=== PATIENT | male | born 1965 | race American Indian/Alaskan Native ===

== ENCOUNTER 2016-09-11 19:21 | Emergency (ER) | payer SELFPAY ==
[2016-09-11] MEDS ORDERED: DUONEB *Not for PRN Use IH ONE ×3 (19:50→23:11)
[2016-09-11] MEDS ORDERED: DELTASONE PO ONE (23:11)
--- NOTE | 2016-09-11 23:12 | Emergency Department Report ---
ED Asthma HPI - General Chief Complaint: Adult Asthma Stated Complaint: ASTHMA Time Seen by Provider: 09/11/16 22:55 Source: patient Mode of arrival: Ambulatory Limitations: No Limitations - History of Present Illness Initial Comments: 51-year-old male past medical history asthma nonsmoker presents with complaint of asthma exacerbation since this afternoon. Patient states that he ran out of his albuterol inhaler and his nebulized fluid at home. Patient is awake alert and oriented 3 no audible wheezing or stridor on exam speaking in full sentences. Patient received one nebulizer treatment in triage. States he feels some continual wheeziness. Patient is accompanied by his son. Denies any chest pain. Patient unaware of his baseline peak flow status. No history of intubations states that he was last treated for asthma in the ED a month ago. Also complaining of 2 days of slightly productive cough with yellowish greenish sputum. Denies any recent travel. No pleuritic chest pain reported by patient. MD Complaint: "asthma attack", wheezing -: This afternoon Asthma History: childhood onset, history of prior ED visit Severity: mild Context: ran out of meds Associated Symptoms: productive cough - Related Data Home Medications Medication Instructions Recorded Confirmed Last Taken ALBUTEROL Inhaler [ProAir HFA 2 puff PO Q4-6H PRN 01/20/16 01/20/16 01/19/16 Inhaler] Previous Rx's Medication Instructions Recorded Last Taken Type ALBUTEROL Inhaler [ProAir HFA 1 puff IH Q4-6H #1 inha 01/20/16 Unknown Rx Inhaler] predniSONE [Deltasone] 50 mg PO QDAY #5 tablet 01/20/16 Unknown Rx ALBUTEROL Inhaler [ProAir HFA 1 puff IH Q4H PRN #1 inha 09/11/16 Unknown Rx Inhaler] Albuterol Sulfate [Albuterol 0.63% 0.63 mg IH Q4H PRN #1 box 09/11/16 Unknown Rx NEBS] Azithromycin [Zithromax Z-SHEREE] 250 mg PO QDAY #1 pack 09/11/16 Unknown Rx Prednisone [predniSONE 10 mg 10 mg PO .TAPER #1 tab.ds.pk 09/11/16 Unknown Rx (6-Day Pack, 21 Tabs)] Allergies Allergy/AdvReac Type Severity Reaction Status Date / Time No Known Allergies Allergy Unverified 11/14/12 08:57 ED Review of Systems ROS: Stated complaint: ASTHMA Other details as noted in HPI Constitutional: denies: chills, fever Eyes: denies: eye pain, eye discharge, vision change ENT: denies: ear pain, throat pain Respiratory: denies: cough, shortness of breath, wheezing Cardiovascular: denies: chest pain, palpitations Endocrine: no symptoms reported Gastrointestinal: denies: abdominal pain, nausea, diarrhea Genitourinary: denies: urgency, dysuria Musculoskeletal: denies: back pain, joint swelling, arthralgia Skin: denies: rash, lesions Neurological: denies: headache, weakness, paresthesias Psychiatric: denies: anxiety, depression Hematological/Lymphatic: denies: easy bleeding, easy bruising ED Past Medical Hx - Past Medical History Previous Medical History?: Yes Hx Hypertension: Yes (no meds) Hx Asthma: Yes - Surgical History Past Surgical History?: Yes Additional Surgical History: Neck surgery 1970 - Social History Smoking Status: Never Smoker Substance Use Type: None - Medications Home Medications: Home Medications Medication Instructions Recorded Confirmed Last Taken Type ALBUTEROL Inhaler [ProAir HFA 1 puff IH Q4-6H #1 inha 01/20/16 Unknown Rx Inhaler] ALBUTEROL Inhaler [ProAir HFA 2 puff PO Q4-6H PRN 01/20/16 01/20/16 01/19/16 History Inhaler] predniSONE [Deltasone] 50 mg PO QDAY #5 tablet 01/20/16 Unknown Rx ALBUTEROL Inhaler [ProAir HFA 1 puff IH Q4H PRN #1 inha 09/11/16 Unknown Rx Inhaler] Albuterol Sulfate [Albuterol 0.63% 0.63 mg IH Q4H PRN #1 box 09/11/16 Unknown Rx NEBS] Azithromycin [Zithromax Z-SHEREE] 250 mg PO QDAY #1 pack 09/11/16 Unknown Rx Prednisone [predniSONE 10 mg 10 mg PO .TAPER #1 tab.ds.pk 09/11/16 Unknown Rx (6-Day Pack, 21 Tabs)] ED Physical Exam - General Limitations: No Limitations General appearance: alert, in no apparent distress - Head Head exam: Present: atraumatic, normocephalic - Eye Eye exam: Present: normal appearance, PERRL, EOMI - ENT ENT exam: Present: mucous membranes moist - Neck Neck exam: Present: normal inspection - Respiratory Respiratory exam: Present: decreased breath sounds (poor airflow bilaterally on auscultation very fine wheezing in both lower lung delaney). Absent: respiratory distress - Cardiovascular Cardiovascular Exam: Present: regular rate, normal rhythm. Absent: systolic murmur, diastolic murmur, rubs, gallop - GI/Abdominal GI/Abdominal exam: Present: soft, normal bowel sounds - Rectal Rectal exam: Present: deferred - Extremities Exam Extremities exam: Present: normal inspection - Back Exam Back exam: Present: normal inspection - Neurological Exam Neurological exam: Present: alert, oriented X3 - Psychiatric Psychiatric exam: Present: normal affect, normal mood - Skin Skin exam: Present: warm, dry, intact, normal color. Absent: rash ED Course Vital Signs 09/11/16 09/11/16 09/11/16 19:40 19:55 20:16 Temperature 98.3 F Pulse Rate 69 Pulse Rate [ 69 72 Throughout] Respiratory 22 Rate Respiratory 16 16 Rate [ Throughout] Blood Pressure 156/101 Blood Pressure [Left] O2 Sat by Pulse 96 Oximetry 09/11/16 09/11/16 09/12/16 23:23 23:56 00:05 Temperature Pulse Rate 76 Pulse Rate [ 78 80 Throughout] Respiratory 20 Rate Respiratory 20 20 Rate [ Throughout] Blood Pressure Blood Pressure 164/92 [Left] O2 Sat by Pulse 97 Oximetry ED Medical Decision Making - Medical Decision Making A/P: Asthma exacerbation 1-prednisone Dosepak, refill on albuterol inhaler and albuterol nebulized fluid 2-follow up with primary care doctor 3-patient is ambulating, no signs of respiratory distress O2 sat above 97% on room air, speaking in full sentences, states he feels significantly better Critical care attestation.: If time is entered above; I have spent that time in minutes in the direct care of this critically ill patient, excluding procedure time. ED Disposition Clinical Impression: Asthma exacerbation Disposition: DC-01 TO HOME OR SELFCARE Is pt being admited?: No Does the pt Need Aspirin: No Condition: Stable Instructions: Asthma (ED) Prescriptions: ALBUTEROL Inhaler [ProAir HFA Inhaler] 1 puff IH Q4H PRN #1 inha PRN Reason: Wheezing Albuterol Sulfate [Albuterol 0.63% NEBS] 0.63 mg IH Q4H PRN #1 box PRN Reason: Wheezing Azithromycin [Zithromax Z-SHEREE] 250 mg PO QDAY #1 pack Prednisone [predniSONE 10 mg (6-Day Pack, 21 Tabs)] 10 mg PO .TAPER #1 tab.ds.pk Referrals: [facility] [Outside] - 3-5 Days [facility] [Outside] - 3-5 Days MARC LEAL MD [Staff Physician] - 3-5 Days Forms: Accompanied Note, Work/School Release Form(ED) Time of Disposition: 23:38
[2016-09-12 00:06] VITALS: BP 164/92
--- NOTE | 2016-09-12 09:18 | XRay Report ---
CHEST TWO VIEWS: 09/11/16 23:14 CLINICAL: Productive cough. COMPARISON: 11/14/12 FINDINGS: Normal heart and pulmonary vasculature.Aortic tortuosity. The lungs are normally expanded and clear.Degenerative change in the spine. IMPRESSION: No acute cardiopulmonary process.No pneumonia.
== END 2016-09-12 00:29 | disposition home or self-care (01) ==
LOC: ED 19:21
DX: J45.901 Unspecified asthma with (acute) exacerbation (principal); I10 Essential (primary) hypertension
CPT/HCPCS: 71020; 94640; 99283; J7512

== ENCOUNTER 2016-10-24 13:45 | Emergency (ER) | payer SELFPAY ==
[2016-10-24] MEDS ORDERED: PROVENTIL IH ONE (13:56)
--- NOTE | 2016-10-24 16:03 | Emergency Department Report ---
- General Chief Complaint: Adult Asthma Stated Complaint: ASTHMA Time Seen by Provider: 10/24/16 15:44 Source: patient, old records reviewed Mode of arrival: Ambulatory Limitations: No Limitations - History of Present Illness MD Complaint: cough -: Gradual Consistency: intermittent Improves With: nothing Worsens With: nothing Context: other (asthma off meds) Associated Symptoms: nasal congestion, cough. denies: fever, chills, myalgias, diaphoresis, headache, rhinorrhea, sore throat, stiff neck, chest pain, shortness of breath, abdominal pain, nausea, vomiting, diarrhea, dysuria, rash, confusion, right sweats, weight loss, epistaxis, hoarseness, ear pain Treatments Prior to Arrival: none - Related Data Home Medications Medication Instructions Recorded Confirmed Last Taken ALBUTEROL Inhaler [ProAir HFA 2 puff PO Q4-6H PRN 01/20/16 01/20/16 01/19/16 Inhaler] Previous Rx's Medication Instructions Recorded Last Taken Type ALBUTEROL Inhaler [ProAir HFA 1 puff IH Q4-6H #1 inha 01/20/16 Unknown Rx Inhaler] predniSONE [Deltasone] 50 mg PO QDAY #5 tablet 01/20/16 Unknown Rx ALBUTEROL Inhaler [ProAir HFA 1 puff IH Q4H PRN #1 inha 09/11/16 Unknown Rx Inhaler] Albuterol Sulfate [Albuterol 0.63% 0.63 mg IH Q4H PRN #1 box 09/11/16 Unknown Rx NEBS] Azithromycin [Zithromax Z-SHEREE] 250 mg PO QDAY #1 pack 09/11/16 Unknown Rx Prednisone [predniSONE 10 mg 10 mg PO .TAPER #1 tab.ds.pk 09/11/16 Unknown Rx (6-Day Pack, 21 Tabs)] ALBUTEROL Inhaler [Proair] 1 puff IH Q4H PRN #1 inha 10/24/16 Unknown Rx Albuterol Sulfate [Albuterol 0.63% 0.63 mg IH BID PRN #1 box 10/24/16 Unknown Rx NEBS] Azithromycin [Zithromax Z-SHEREE] 250 mg PO DAILY #6 tablet 10/24/16 Unknown Rx predniSONE [Deltasone] 50 mg PO QDAY #5 tab 10/24/16 Unknown Rx Allergies Allergy/AdvReac Type Severity Reaction Status Date / Time No Known Allergies Allergy Unverified 11/14/12 08:57 ED Review of Systems ROS: Stated complaint: ASTHMA Other details as noted in HPI Comment: Unobtainable due to pts medical conditions Constitutional: no symptoms reported, see HPI Eyes: as per HPI ENT: as per HPI. denies: ear pain, throat pain, dental pain Respiratory: no symptoms reported, see HPI, cough. denies: orthopnea, shortness of breath, SOB with exertion, SOB at rest, stridor Cardiovascular: as per HPI. denies: chest pain, palpitations, dyspnea on exertion, orthopnea Endocrine: no symptoms reported, see HPI. denies: excessive sweating, flushing , intolerance to cold, intolerance to heat Gastrointestinal: as per HPI. denies: abdominal pain, nausea, vomiting Genitourinary: as per HPI. denies: urgency, dysuria Musculoskeletal: as per HPI. denies: back pain Skin: as per HPI. denies: rash, lesions Neurological: as per HPI. denies: headache, weakness Psychiatric: as per HPI. denies: anxiety, depression Hematological/Lymphatic: as per HPI. denies: easy bleeding ED Past Medical Hx - Past Medical History Previous Medical History?: Yes Hx Hypertension: Yes (no meds) Hx Asthma: Yes Additional medical history: denies htn recheck of bp improved - Surgical History Past Surgical History?: Yes Additional Surgical History: Neck surgery 1970 - Family History Family history: no significant - Social History Smoking Status: Never Smoker Substance Use Type: None - Medications Home Medications: Home Medications Medication Instructions Recorded Confirmed Last Taken Type ALBUTEROL Inhaler [ProAir HFA 1 puff IH Q4-6H #1 inha 01/20/16 Unknown Rx Inhaler] ALBUTEROL Inhaler [ProAir HFA 2 puff PO Q4-6H PRN 01/20/16 01/20/16 01/19/16 History Inhaler] predniSONE [Deltasone] 50 mg PO QDAY #5 tablet 01/20/16 Unknown Rx ALBUTEROL Inhaler [ProAir HFA 1 puff IH Q4H PRN #1 inha 09/11/16 Unknown Rx Inhaler] Albuterol Sulfate [Albuterol 0.63% 0.63 mg IH Q4H PRN #1 box 09/11/16 Unknown Rx NEBS] Azithromycin [Zithromax Z-SHEREE] 250 mg PO QDAY #1 pack 09/11/16 Unknown Rx Prednisone [predniSONE 10 mg 10 mg PO .TAPER #1 tab.ds.pk 09/11/16 Unknown Rx (6-Day Pack, 21 Tabs)] ALBUTEROL Inhaler [Proair] 1 puff IH Q4H PRN #1 inha 10/24/16 Unknown Rx Albuterol Sulfate [Albuterol 0.63% 0.63 mg IH BID PRN #1 box 10/24/16 Unknown Rx NEBS] Azithromycin [Zithromax Z-SHEREE] 250 mg PO DAILY #6 tablet 10/24/16 Unknown Rx predniSONE [Deltasone] 50 mg PO QDAY #5 tab 10/24/16 Unknown Rx ED Physical Exam - General Limitations: No Limitations General appearance: alert - Head Head exam: Present: atraumatic - Eye Eye exam: Present: normal appearance, PERRL - ENT ENT exam: Present: normal exam, mucous membranes moist - Neck Neck exam: Present: normal inspection. Absent: tenderness, meningismus - Respiratory Respiratory exam: Present: normal lung sounds bilaterally, wheezes. Absent: respiratory distress, rales, rhonchi, stridor - Cardiovascular Cardiovascular Exam: Present: regular rate, normal rhythm - GI/Abdominal GI/Abdominal exam: Present: soft - Rectal Rectal exam: Present: deferred - Extremities Exam Extremities exam: Present: normal inspection, full ROM. Absent: tenderness - Back Exam Back exam: Present: normal inspection, full ROM. Absent: tenderness, CVA tenderness (R) - Neurological Exam Neurological exam: Present: alert, oriented X3 - Psychiatric Psychiatric exam: Present: normal affect, normal mood - Skin Skin exam: Present: warm, dry, intact, normal color ED Course Vital Signs 10/24/16 10/24/16 13:50 15:34 Temperature 98.3 F 98.0 F Pulse Rate 86 84 Respiratory 26 H 18 Rate Blood Pressure 179/122 162/84 O2 Sat by Pulse 96 97 Oximetry - Reevaluation(s) Reevaluation #1: 10/24/16 17:19 to er w a/c asthma p 2 tx improved with 100 ra sat clear sputum no fever off meds bc ran out medicated and dc home w dc poc on reeval hr 90, sat 100, rr 20. ED Medical Decision Making - Medical Decision Making see chart - Differential Diagnosis asthma w or wo infection; elevated bp wo s/s- dec wo intervention Critical care attestation.: If time is entered above; I have spent that time in minutes in the direct care of this critically ill patient, excluding procedure time. ED Disposition Clinical Impression: Asthma, URI (upper respiratory infection), Asthma with acute exacerbation Disposition: TO HOME OR SELFCARE Is pt being admited?: No Does the pt Need Aspirin: No Condition: Stable Instructions: Asthma (ED) Additional Instructions: rest fluids meds as ordered follow up pcp for recheck monitor your blood pressure it was increased today on admit but it went down on its own. we need to keep a watch on this see pcp referral exercise low salt diet no fried food. no fast food Prescriptions: ALBUTEROL Inhaler [Proair] 1 puff IH Q4H PRN #1 inha PRN Reason: Wheezing Albuterol Sulfate [Albuterol 0.63% NEBS] 0.63 mg IH BID PRN #1 box PRN Reason: Wheezing Azithromycin [Zithromax Z-SHEREE] 250 mg PO DAILY #6 tablet predniSONE [Deltasone] 50 mg PO QDAY #5 tab Referrals: PRIMARY CARE, [Primary Care Provider] - 3-5 Days NIKOLAY JUSTIN MD [Staff Physician] - 3-5 Days JONO CELAYA MD [Staff Physician] - 3-5 Days Time of Disposition: 17:14
[2016-10-24] MEDS ORDERED: DUONEB *Not for PRN Use IH ONE (16:09)
[2016-10-24 17:54] VITALS: BP 130/70
== END 2016-10-24 17:58 | disposition home or self-care (01) ==
LOC: ED 13:45
DX: J45.901 Unspecified asthma with (acute) exacerbation (principal); J06.9 Acute upper respiratory infection, unspecified
CPT/HCPCS: 94640; 96372; 99283; J2930

== ENCOUNTER 2018-04-06 00:05 | Emergency (ER) | payer SELFPAY ==
[2018-04-06 00:19] VITALS: BP 140/84
[2018-04-06] MEDS ORDERED: SOLU-Medrol IV ONE (00:33)
[2018-04-06] MEDS ORDERED: PROVENTIL IH ONE (00:33)
--- NOTE | 2018-04-06 00:55 | Emergency Department Report ---
ED Asthma HPI - General Chief Complaint: Dyspnea/Respdistress Stated Complaint: SOB Time Seen by Provider: 04/06/18 00:33 Source: patient Mode of arrival: Ambulatory Limitations: No Limitations - History of Present Illness Initial Comments: [id number] -[place] male presents emergency department complaining of progressive worsening shortness of breath for the last 3 days the running out of his albuterol a symptoms have been getting worse at night and he's been having coughing spells which is also worse at night, still has been nonproduc tive, nonproductive. Pupils no hemoptysis, hematemesis or hematochezia. Reports no palpitations, no sore throat, no odynophagia or dysphagia. Denies any abdominal pain,. Reports no dysuria or diarrhea or flank pain. No foreign travel. He denies trauma. MD Complaint: "asthma attack", wheezing -: Sudden Severity: moderate Context: ran out of meds Associated Symptoms: dry cough Treatments Prior to Arrival: inhaled bronchodilator (EMS GAVE) - Related Data Home Medications Medication Instructions Recorded Confirmed Last Taken ALBUTEROL Inhaler (OR & NICU) 2 puff PO Q4-6H PRN 01/20/16 01/20/16 01/19/16 [ProAir HFA Inhaler] Previous Rx's Medication Instructions Recorded Last Taken Type ALBUTEROL Inhaler (OR & NICU) 1 puff IH Q4-6H #1 inha 01/20/16 Unknown Rx [ProAir HFA Inhaler] predniSONE [Deltasone] 50 mg PO QDAY #5 tablet 01/20/16 Unknown Rx ALBUTEROL Inhaler (OR & NICU) 1 puff IH Q4H PRN #1 inha 09/11/16 Unknown Rx [ProAir HFA Inhaler] Albuterol Sulfate [Albuterol 0.63% 0.63 mg IH Q4H PRN #1 box 09/11/16 Unknown Rx NEBS] Azithromycin [Zithromax Z-SHEREE] 250 mg PO QDAY #1 pack 09/11/16 Unknown Rx Prednisone [predniSONE 10 mg 10 mg PO .TAPER #1 tab.ds.pk 09/11/16 Unknown Rx (6-Day Pack, 21 Tabs)] ALBUTEROL Inhaler (OR & NICU) 1 puff IH Q4H PRN #1 inha 10/24/16 Unknown Rx [Proair] Albuterol Sulfate [Albuterol 0.63% 0.63 mg IH BID PRN #1 box 10/24/16 Unknown Rx NEBS] Azithromycin [Zithromax Z-SHEREE] 250 mg PO DAILY #6 tablet 10/24/16 Unknown Rx predniSONE [Deltasone] 50 mg PO QDAY #5 tab 10/24/16 Unknown Rx ALBUTEROL Inhaler (OR & NICU) 1 puff IH Q4-6H PRN #1 inha 03/12/18 Unknown Rx [ProAir HFA Inhaler] Montelukast [Singulair] 10 mg PO QPM #14 tablet 03/12/18 Unknown Rx predniSONE [Prednisone] 50 mg PO DAILY #5 tablet 03/12/18 Unknown Rx ALBUTEROL Inhaler (OR & NICU) 2 puff IH QID PRN #1 inhalation 04/06/18 Unknown Rx [ProAir HFA Inhaler] ALBUTEROL NEB's [Proventil 0.083% 2.5 mg IH TID PRN #30 neb 04/06/18 Unknown Rx NEBS] Montelukast [Singulair] 10 mg PO QPM #14 tablet 04/06/18 Unknown Rx predniSONE [Deltasone] 50 mg PO QDAY #5 tab 04/06/18 Unknown Rx Allergies Allergy/AdvReac Type Severity Reaction Status Date / Time No Known Allergies Allergy Unverified 11/14/12 08:57 ED Review of Systems ROS: Stated complaint: SOB Other details as noted in HPI Constitutional: denies: chills, fever Eyes: denies: eye pain, eye discharge, vision change ENT: denies: ear pain, throat pain Respiratory: cough. denies: shortness of breath, SOB with exertion, SOB at rest, wheezing Cardiovascular: denies: chest pain, palpitations, dyspnea on exertion, orthopnea, syncope, paroxysmal nocturnal dyspnea Endocrine: no symptoms reported Gastrointestinal: denies: abdominal pain, nausea, diarrhea Genitourinary: denies: urgency, dysuria Musculoskeletal: denies: back pain, joint swelling, arthralgia Skin: denies: rash, lesions Neurological: denies: headache, weakness, paresthesias Psychiatric: denies: anxiety, depression Hematological/Lymphatic: denies: easy bleeding, easy bruising ED Past Medical Hx - Past Medical History Previous Medical History?: Yes Hx Hypertension: Yes (no meds) Hx Asthma: Yes Additional medical history: denies htn recheck of bp improved - Surgical History Past Surgical History?: Yes Additional Surgical History: Neck surgery 1971 - Social History Smoking Status: Never Smoker Substance Use Type: Alcohol - Medications Home Medications: Home Medications Medication Instructions Recorded Confirmed Last Taken Type ALBUTEROL Inhaler (OR & NICU) 1 puff IH Q4-6H #1 inha 01/20/16 Unknown Rx [ProAir HFA Inhaler] ALBUTEROL Inhaler (OR & NICU) 2 puff PO Q4-6H PRN 01/20/16 01/20/16 01/19/16 History [ProAir HFA Inhaler] predniSONE [Deltasone] 50 mg PO QDAY #5 tablet 01/20/16 Unknown Rx ALBUTEROL Inhaler (OR & NICU) 1 puff IH Q4H PRN #1 inha 09/11/16 Unknown Rx [ProAir HFA Inhaler] Albuterol Sulfate [Albuterol 0.63% 0.63 mg IH Q4H PRN #1 box 09/11/16 Unknown Rx NEBS] Azithromycin [Zithromax Z-SHEREE] 250 mg PO QDAY #1 pack 09/11/16 Unknown Rx Prednisone [predniSONE 10 mg 10 mg PO .TAPER #1 tab.ds.pk 09/11/16 Unknown Rx (6-Day Pack, 21 Tabs)] ALBUTEROL Inhaler (OR & NICU) 1 puff IH Q4H PRN #1 inha 10/24/16 Unknown Rx [Proair] Albuterol Sulfate [Albuterol 0.63% 0.63 mg IH BID PRN #1 box 10/24/16 Unknown Rx NEBS] Azithromycin [Zithromax Z-SHEREE] 250 mg PO DAILY #6 tablet 10/24/16 Unknown Rx predniSONE [Deltasone] 50 mg PO QDAY #5 tab 10/24/16 Unknown Rx ALBUTEROL Inhaler (OR & NICU) 1 puff IH Q4-6H PRN #1 inha 03/12/18 Unknown Rx [ProAir HFA Inhaler] Montelukast [Singulair] 10 mg PO QPM #14 tablet 03/12/18 Unknown Rx predniSONE [Prednisone] 50 mg PO DAILY #5 tablet 03/12/18 Unknown Rx ALBUTEROL Inhaler (OR & NICU) 2 puff IH QID PRN #1 inhalation 04/06/18 Unknown Rx [ProAir HFA Inhaler] ALBUTEROL NEB's [Proventil 0.083% 2.5 mg IH TID PRN #30 neb 04/06/18 Unknown Rx NEBS] Montelukast [Singulair] 10 mg PO QPM #14 tablet 04/06/18 Unknown Rx predniSONE [Deltasone] 50 mg PO QDAY #5 tab 04/06/18 Unknown Rx ED Physical Exam - General Limitations: No Limitations General appearance: alert, in no apparent distress - Head Head exam: Present: atraumatic, normocephalic - Eye Eye exam: Present: normal appearance, PERRL, EOMI Pupils: Present: normal accommodation - ENT ENT exam: Present: normal exam, normal orophraynx, mucous membranes moist - Neck Neck exam: Present: normal inspection, full ROM. Absent: tenderness, lymphadenopathy - Respiratory Respiratory exam: Present: normal lung sounds bilaterally, wheezes (mild no significant increased work of breathing). Absent: respiratory distress, rhonchi, stridor, chest wall tenderness, accessory muscle use - Cardiovascular Cardiovascular Exam: Present: regular rate, normal rhythm. Absent: systolic murmur, diastolic murmur, rubs, gallop - GI/Abdominal GI/Abdominal exam: Present: soft, normal bowel sounds. Absent: distended, tenderness, guarding, hypoactive bowel sounds - Rectal Rectal exam: Present: deferred - Extremities Exam Extremities exam: Present: normal inspection, full ROM, normal capillary refill. Absent: pedal edema, joint swelling - Back Exam Back exam: Present: normal inspection, full ROM. Absent: CVA tenderness (R), CVA tenderness (L), muscle spasm, paraspinal tenderness - Neurological Exam Neurological exam: Present: alert, oriented X3, CN II-XII intact. Absent: normal gait - Psychiatric Psychiatric exam: Present: normal affect, normal mood - Skin Skin exam: Present: warm, dry, intact, normal color. Absent: rash ED Course Vital Signs 04/06/18 00:14 Temperature 97.8 F Pulse Rate 102 H Respiratory 18 Rate Blood Pressure 140/84 O2 Sat by Pulse 96 Oximetry - Reevaluation(s) Reevaluation #1: 04/06/18 01:34 Feels much better after his albuterol nebulizer requesting a nebulizer refill for home as well. No cough. The patient is alert and oriented playing his video game on the phone no acute distress. ED Medical Decision Making - Radiology Data Radiology results: report reviewed (negative acute processes) - Medical Decision Making 53-year-old male ran out of his usual albuterol as well as movement medication results and him having to emergency department or treatment and evaluation. No fevers appreciated. No hemoptysis. He responded very well to his albuterol therapy. Critical care attestation.: If time is entered above; I have spent that time in minutes in the direct care of this critically ill patient, excluding procedure time. ED Disposition Clinical Impression: Asthma Disposition: DC-01 TO HOME OR SELFCARE Is pt being admited?: No Does the pt Need Aspirin: No Condition: Stable Instructions: Asthma (ED) Prescriptions: ALBUTEROL Inhaler (OR & NICU) [ProAir HFA Inhaler] 2 puff IH QID PRN #1 inhalation PRN Reason: Shortness Of Breath ALBUTEROL NEB's [Proventil 0.083% NEBS] 2.5 mg IH TID PRN #30 neb PRN Reason: Wheezing Montelukast [Singulair] 10 mg PO QPM #14 tablet predniSONE [Deltasone] 50 mg PO QDAY #5 tab Referrals: DWAIN AKINS MD [Primary Care Provider] - 3-5 Days
--- NOTE | 2018-04-06 01:00 | XRay Report ---
FINAL REPORT EXAM: XR CHEST ROUTINE 2V HISTORY: cough COMPARISON: March 12, 2018 chest x-ray. FINDINGS:: Frontal and lateral views of the chest obtained. Cardiac silhouette is within normal limi ts. No focal consolidation or effusion. No pneumothorax. Visualized bony thorax is grossly intact. IMPRESSION:: No acute findings.
== END 2018-04-06 01:55 | disposition home or self-care (01) ==
LOC: ED 00:05
DX: J45.909 Unspecified asthma, uncomplicated (principal); I10 Essential (primary) hypertension; Z79.899 Other long term (current) drug therapy
CPT/HCPCS: 71046; 94640; 96374; 99284; J2930

== ENCOUNTER 2018-08-20 09:20 | Emergency (ER) | payer OTHER ==
[2018-08-20] MEDS ORDERED: NORMODYNE IV ONE (10:03)
[2018-08-20] MEDS ORDERED: SOLU-Medrol IV ONE (10:03)
[2018-08-20] MEDS: DUONEB *Not for PRN Use IH ONE ×2 (10:14→10:15)
--- NOTE | 2018-08-20 10:35 | XRay Report ---
PROCEDURE: XR CHEST 1V AP TECHNIQUE: Chest radiograph single view. HISTORY: hypertension FINDINGS: Single frontal view of the chest was acquired and compared to the prior examination of Juni Sesay. The heart is normal in size. The lungs appear clear. There is a BB in the soft tissues of the right i nferior neck unchanged. IMPRESSION: No active disease in the chest This document is electronically signed by Stan Michel MD., August 20 2018 10:33:21 AM ET
[2018-08-20 10:46] LABS: INR 1.03 (0.87-1.13)
--- NOTE | 2018-08-20 11:04 | Emergency Department Report ---
ED General Adult HPI - General Chief complaint: Adult Asthma Stated complaint: ASTHMA Time Seen by Provider: 08/20/18 09:48 Source: patient Mode of arrival: Ambulatory Limitations: No Limitations - History of Present Illness Initial comments: 51-year-old male who is not on prednisone with a history of chronic asthma and home neb therapy. He states that his wheezing despite home treatment. He has had occasional cough but no significant productive sputum. It is not a likely side recent fever or chills. Does not complain of chest pain. Patient presents with substantial hypertension. He states he's never been on medicine for high blood pressure. -: Gradual, days(s) Consistency: constant (wheezing/shortness of breath otherwise without symptoms) Associated Symptoms: denies other symptoms - Related Data Home Medications Medication Instructions Recorded Confirmed Last Taken ALBUTEROL Inhaler (OR & NICU) 2 puff PO Q4-6H PRN 01/20/16 01/20/16 01/19/16 [ProAir HFA Inhaler] Previous Rx's Medication Instructions Recorded Last Taken Type predniSONE [Deltasone] 50 mg PO QDAY #5 tablet 01/20/16 Unknown Rx ALBUTEROL Inhaler (OR & NICU) 1 puff IH Q4H PRN #1 inha 09/11/16 Unknown Rx [ProAir HFA Inhaler] Albuterol Sulfate [Albuterol 0.63% 0.63 mg IH Q4H PRN #1 box 09/11/16 Unknown Rx NEBS] Azithromycin [Zithromax Z-SHEREE] 250 mg PO QDAY #1 pack 09/11/16 Unknown Rx Prednisone [predniSONE 10 mg 10 mg PO .TAPER #1 tab.ds.pk 09/11/16 Unknown Rx (6-Day Pack, 21 Tabs)] ALBUTEROL Inhaler (OR & NICU) 1 puff IH Q4H PRN #1 inha 10/24/16 Unknown Rx [Proair] Albuterol Sulfate [Albuterol 0.63% 0.63 mg IH BID PRN #1 box 10/24/16 Unknown Rx NEBS] Azithromycin [Zithromax Z-SHEREE] 250 mg PO DAILY #6 tablet 10/24/16 Unknown Rx predniSONE [Deltasone] 50 mg PO QDAY #5 tab 10/24/16 Unknown Rx ALBUTEROL Inhaler (OR & NICU) 1 puff IH Q4-6H PRN #1 inha 03/12/18 Unknown Rx [ProAir HFA Inhaler] Montelukast [Singulair] 10 mg PO QPM #14 tablet 03/12/18 Unknown Rx predniSONE [Prednisone] 50 mg PO DAILY #5 tablet 03/12/18 Unknown Rx ALBUTEROL Inhaler (OR & NICU) 2 puff IH QID PRN #1 inhalation 04/06/18 Unknown Rx [ProAir HFA Inhaler] Montelukast [Singulair] 10 mg PO QPM #14 tablet 04/06/18 Unknown Rx predniSONE [Deltasone] 50 mg PO QDAY #5 tab 04/06/18 Unknown Rx ALBUTEROL Inhaler (OR & NICU) 1 puff IH Q4-6H #1 inha 08/20/18 Unknown Rx [ProAir HFA Inhaler] ALBUTEROL NEB's [Proventil 0.083% 2.5 mg IH TID PRN #30 neb 08/20/18 Unknown Rx NEBS] amLODIPine [Norvasc] 5 mg PO DAILY #30 tab 08/20/18 Unknown Rx predniSONE [Deltasone] 40 mg PO QDAY #10 tab 08/20/18 Unknown Rx Allergies Allergy/AdvReac Type Severity Reaction Status Date / Time No Known Allergies Allergy Verified 08/20/18 09:21 ED Review of Systems ROS: Stated complaint: ASTHMA Other details as noted in HPI Constitutional: denies: chills, fever Eyes: denies: eye pain, eye discharge, vision change ENT: denies: ear pain, throat pain Respiratory: shortness of breath, wheezing. denies: cough Cardiovascular: denies: chest pain, palpitations Endocrine: no symptoms reported Gastrointestinal: denies: abdominal pain, nausea, diarrhea Genitourinary: denies: urgency, dysuria Musculoskeletal: denies: back pain, joint swelling, arthralgia Skin: denies: rash, lesions Neurological: denies: headache, weakness, paresthesias Psychiatric: denies: anxiety, depression Hematological/Lymphatic: denies: easy bleeding, easy bruising ED Past Medical Hx - Past Medical History Hx Hypertension: Yes (no meds) Hx Asthma: Yes Additional medical history: denies htn recheck of bp improved - Surgical History Additional Surgical History: Neck surgery 1970 - Social History Smoking Status: Never Smoker Substance Use Type: Alcohol - Medications Home Medications: Home Medications Medication Instructions Recorded Confirmed Last Taken Type ALBUTEROL Inhaler (OR & NICU) 2 puff PO Q4-6H PRN 01/20/16 01/20/16 01/19/16 History [ProAir HFA Inhaler] predniSONE [Deltasone] 50 mg PO QDAY #5 tablet 01/20/16 Unknown Rx ALBUTEROL Inhaler (OR & NICU) 1 puff IH Q4H PRN #1 inha 09/11/16 Unknown Rx [ProAir HFA Inhaler] Albuterol Sulfate [Albuterol 0.63% 0.63 mg IH Q4H PRN #1 box 09/11/16 Unknown Rx NEBS] Azithromycin [Zithromax Z-SHEREE] 250 mg PO QDAY #1 pack 09/11/16 Unknown Rx Prednisone [predniSONE 10 mg 10 mg PO .TAPER #1 tab.ds.pk 09/11/16 Unknown Rx (6-Day Pack, 21 Tabs)] ALBUTEROL Inhaler (OR & NICU) 1 puff IH Q4H PRN #1 inha 10/24/16 Unknown Rx [Proair] Albuterol Sulfate [Albuterol 0.63% 0.63 mg IH BID PRN #1 box 10/24/16 Unknown Rx NEBS] Azithromycin [Zithromax Z-SHEREE] 250 mg PO DAILY #6 tablet 10/24/16 Unknown Rx predniSONE [Deltasone] 50 mg PO QDAY #5 tab 10/24/16 Unknown Rx ALBUTEROL Inhaler (OR & NICU) 1 puff IH Q4-6H PRN #1 inha 03/12/18 Unknown Rx [ProAir HFA Inhaler] Montelukast [Singulair] 10 mg PO QPM #14 tablet 03/12/18 Unknown Rx predniSONE [Prednisone] 50 mg PO DAILY #5 tablet 03/12/18 Unknown Rx ALBUTEROL Inhaler (OR & NICU) 2 puff IH QID PRN #1 inhalation 04/06/18 Unknown Rx [ProAir HFA Inhaler] Montelukast [Singulair] 10 mg PO QPM #14 tablet 04/06/18 Unknown Rx predniSONE [Deltasone] 50 mg PO QDAY #5 tab 04/06/18 Unknown Rx ALBUTEROL Inhaler (OR & NICU) 1 puff IH Q4-6H #1 inha 08/20/18 Unknown Rx [ProAir HFA Inhaler] ALBUTEROL NEB's [Proventil 0.083% 2.5 mg IH TID PRN #30 neb 08/20/18 Unknown Rx NEBS] amLODIPine [Norvasc] 5 mg PO DAILY #30 tab 08/20/18 Unknown Rx predniSONE [Deltasone] 40 mg PO QDAY #10 tab 08/20/18 Unknown Rx ED Physical Exam - General Limitations: No Limitations General appearance: alert, in no apparent distress - Head Head exam: Present: atraumatic, normocephalic - Eye Eye exam: Present: normal appearance. Absent: scleral icterus - ENT ENT exam: Present: mucous membranes moist - Neck Neck exam: Present: normal inspection - Respiratory Respiratory exam: Present: prolonged expiratory, other (faint end expiratory wheeze). Absent: respiratory distress - Cardiovascular Cardiovascular Exam: Present: regular rate, normal rhythm. Absent: systolic murmur, diastolic murmur, rubs, gallop - GI/Abdominal GI/Abdominal exam: Present: soft, normal bowel sounds. Absent: distended, tenderness, guarding, rebound, rigid - Rectal Rectal exam: Present: deferred - Extremities Exam Extremities exam: Present: normal inspection, normal capillary refill. Absent: pedal edema, joint swelling, calf tenderness - Back Exam Back exam: Present: normal inspection - Neurological Exam Neurological exam: Present: alert, oriented X3, CN II-XII intact. Absent: motor sensory deficit - Psychiatric Psychiatric exam: Present: normal affect, normal mood - Skin Skin exam: Present: warm, dry, intact, normal color. Absent: rash ED Course Vital Signs 08/20/18 08/20/18 08/20/18 09:24 10:16 10:18 Temperature 98.5 F Pulse Rate 70 55 L Pulse Rate [ 80 Right Lower Lobe] Respiratory 20 Rate Respiratory 18 Rate [Right Lower Lobe] Blood Pressure 201/109 171/106 O2 Sat by Pulse 98 Oximetry - Reevaluation(s) Reevaluation #1: Wheezing improved. Saturation 95-97%. Patient states he is ready for discharge. He will be begun on amlodipine. Follow-up was required for his hypertension and asthma. He will be referred. It is emphasized that his blood pressure needs monitoring while he is on prednisone. 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 Lymph # 1.7 [place] # 0.5 Eos # 0.5 H Baso # 0.1 Seg Neutrophils % 49.2 Seg Neutrophils # 2.6 PT 13.2 INR 1.03 APTT 28.0 Sodium 142 Potassium 4.0 Chloride 104.3 Carbon Dioxide 28 Anion Gap 14 BUN 10 Creatinine 0.9 Estimated GFR > 60 BUN/Creatinine Ratio 11 Glucose 104 H Calcium 9.0 Magnesium 2.10 Total Bilirubin Direct Bilirubin Indirect Bilirubin AST ALT Alkaline Phosphatase NT-Pro-B Natriuret Pep Total Protein Albumin Albumin/Globulin Ratio 08/20/18 10:23 WBC RBC Hgb Hct MCV MCH MCHC RDW Plt Count Lymph % (Auto) [place] % (Auto) Eos % (Auto) Baso % (Auto) Lymph # [place] # Eos # Baso # Seg Neutrophils % Seg Neutrophils # PT INR APTT Sodium Potassium Chloride Carbon Dioxide Anion Gap BUN Creatinine Estimated GFR BUN/Creatinine Ratio Glucose Calcium Magnesium 2.20 Total Bilirubin 0.60 Direct Bilirubin < 0.2 Indirect Bilirubin 0.4 AST 18 ALT 15 Alkaline Phosphatase 131 H NT-Pro-B Natriuret Pep 72.86 Total Protein 7.4 Albumin 4.0 Albumin/Globulin Ratio 1.2 - Radiology Data Radiology results: report reviewed (chest x-ray no acute process) Critical care attestation.: If time is entered above; I have spent that time in minutes in the direct care of this critically ill patient, excluding procedure time. ED Disposition Clinical Impression: Essential hypertension Exacerbation of asthma Qualifiers: Asthma severity: moderate Asthma persistence: persistent Qualified Code(s): J45.41 - Moderate persistent asthma with (acute) exacerbation Disposition: TO HOME OR SELFCARE Is pt being admited?: No Does the pt Need Aspirin: No Condition: Stable Instructions: Hypertension (ED), Asthma (ED) Additional Instructions: Do not smoke. Monitor blood pressure at least daily while on these medicines. Follow-up with clinic. Return any acute change or worsening symptoms. Prescriptions: predniSONE [Deltasone] 40 mg PO QDAY #10 tab amLODIPine [Norvasc] 5 mg PO DAILY #30 tab ALBUTEROL Inhaler (OR & NICU) [ProAir HFA Inhaler] 1 puff IH Q4-6H #1 inha ALBUTEROL NEB's [Proventil 0.083% NEBS] 2.5 mg IH TID PRN #30 neb PRN Reason: Wheezing Referrals: RUBINA NAJERA MD [Primary Care Provider] - 2-3 Days Time of Disposition: 12:30
[2018-08-20 11:09] LABS: Basophils # (Auto) 0.1 K/mm3 (0.0-0.1); Eosinophils # (Auto) 0.5 K/mm3 (0.0-0.4); Eosinophils % (Auto) 8.6 % (0.0-4.3); Hematocrit 43.6 % (35.5-45.6); Hemoglobin 14.4 gm/dl (11.8-15.2); Lymphocytes # (Auto) 1.7 K/mm3 (1.2-5.4); Lymphocytes % (Auto) 31.8 % (13.4-35.0); Mean Corpuscular HGB Conc 33 % (32-34); Mean Corpuscular Volume 87 fl (84-94); Monocytes # (Auto) 0.5 K/mm3 (0.0-0.8); Monocytes % (Auto) 8.9 % (0.0-7.3); Platelet Count 214 K/mm3 (140-440); Red Blood Count 5.01 M/mm3 (3.65-5.03); Red Cell Distribution Width 16.5 % (13.2-15.2)
[2018-08-20 11:28] LABS: BUN/Creatinine Ratio 11; Blood Urea Nitrogen 10 mg/dL (9-20); Hemolysis Index 13
[2018-08-20 11:34] LABS: Alanine Aminotransferase 15 units/L (7-56)
[2018-08-20 11:38] LABS: Bilirubin,Direct < 0.2 mg/dL (0-0.2)
[2018-08-20] MEDS ORDERED: NORVASC PO ONE (12:31)
[2018-08-20 13:10] VITALS: BP 167/104
== END 2018-08-20 13:12 | disposition home or self-care (01) ==
LOC: ED 09:20
DX: J45.21 Mild intermittent asthma with (acute) exacerbation (principal); I10 Essential (primary) hypertension; Z79.899 Other long term (current) drug therapy
CPT/HCPCS: 36415; 71045; 80048; 80076; 83735; 83880; 85025; 85610; 85730; 96374; 96375; 99284; J2930

== ENCOUNTER 2018-09-18 08:59 | Emergency (ER) | payer SELFPAY ==
[2018-09-18 09:16] VITALS: BP 164/96
[2018-09-18] MEDS ORDERED: DUONEB *Not for PRN Use IH ONE (09:17)
[2018-09-18] MEDS ORDERED: DELTASONE PO ONE (09:34)
--- NOTE | 2018-09-18 10:00 | Emergency Department Report ---
HPI - General Chief Complaint: Adult Asthma Time Seen by Provider: 09/18/18 09:25 - HPI HPI: 53-year-old -[place] male presents to the emergency department with a few days of some wheezing, dry cough that he says is an asthma exacerbation. The patient has been out of his albuterol inhaler and nebulizers. No recent travel or sick contacts at home. He does not have a primary care physician. He denies any tobacco or illicit drug use. He also has a history of hypertension but is not on any medications. The patient also complains of some swelling in the bilateral nasal passages. He appears to have some type of a cyst or mucocele or some type of balloon-like swelling in both areas is causing nasal congestion. He says that this is an acute on chronic problem for him. This showed up in the past 2 days as well but he says it comes and goes. The last time he had something like this was about one month ago. He is seeing a physician before but has never seen an branch specialist. No recent travel or sick contacts at home. ED Past Medical Hx - Past Medical History Previous Medical History?: Yes Hx Hypertension: Yes (no meds) Hx Asthma: Yes Additional medical history: denies htn recheck of bp improved - Surgical History Past Surgical History?: Yes Additional Surgical History: Neck surgery 1970 - Social History Smoking Status: Former Smoker Substance Use Type: Alcohol, Prescribed - Medications Home Medications: Home Medications Medication Instructions Recorded Confirmed Last Taken Type ALBUTEROL Inhaler (OR & NICU) 2 puff PO Q4-6H PRN 01/20/16 01/20/16 01/19/16 History [ProAir HFA Inhaler] predniSONE [Deltasone] 50 mg PO QDAY #5 tablet 01/20/16 Unknown Rx ALBUTEROL Inhaler (OR & NICU) 1 puff IH Q4H PRN #1 inha 09/11/16 Unknown Rx [ProAir HFA Inhaler] Albuterol Sulfate [Albuterol 0.63% 0.63 mg IH Q4H PRN #1 box 09/11/16 Unknown Rx NEBS] Azithromycin [Zithromax Z-SHEREE] 250 mg PO QDAY #1 pack 09/11/16 Unknown Rx Prednisone [predniSONE 10 mg 10 mg PO .TAPER #1 tab.ds.pk 07/07/17 Unknown Rx (6-Day Pack, 21 Tabs)] ALBUTEROL Inhaler (OR & NICU) 1 puff IH Q4H PRN #1 inha 10/24/16 Unknown Rx [Proair] Albuterol Sulfate [Albuterol 0.63% 0.63 mg IH BID PRN #1 box 10/24/16 Unknown Rx NEBS] Azithromycin [Zithromax Z-SHEREE] 250 mg PO DAILY #6 tablet 10/24/16 Unknown Rx predniSONE [Deltasone] 50 mg PO QDAY #5 tab 10/24/16 Unknown Rx ALBUTEROL Inhaler (OR & NICU) 1 puff IH Q4-6H PRN #1 inha 03/12/18 Unknown Rx [ProAir HFA Inhaler] Montelukast [Singulair] 10 mg PO QPM #14 tablet 03/12/18 Unknown Rx predniSONE [Prednisone] 50 mg PO DAILY #5 tablet 03/12/18 Unknown Rx Montelukast [Singulair] 10 mg PO QPM #14 tablet 04/06/18 Unknown Rx predniSONE [Deltasone] 50 mg PO QDAY #5 tab 04/06/18 Unknown Rx ALBUTEROL Inhaler (OR & NICU) 1 puff IH Q4-6H #1 inha 08/20/18 Unknown Rx [ProAir HFA Inhaler] amLODIPine [Norvasc] 5 mg PO DAILY #30 tab 08/20/18 Unknown Rx ALBUTEROL Inhaler (OR & NICU) 2 puff IH QID PRN #1 inhalation 09/18/18 Unknown Rx [ProAir HFA Inhaler] ALBUTEROL NEB's [Proventil 0.083% 2.5 mg IH TID PRN #1 box 09/18/18 Unknown Rx NEBS] predniSONE [Deltasone] 20 mg PO BID #10 tab 09/18/18 Unknown Rx ED Review of Systems ROS: Stated complaint: ASTHMA ATTACK Other details as noted in HPI Comment: All other systems reviewed and negative Constitutional: denies: chills, fever Eyes: denies: eye pain, vision change ENT: denies: ear pain, throat pain Respiratory: cough, wheezing Cardiovascular: denies: chest pain, edema Gastrointestinal: denies: abdominal pain, vomiting Genitourinary: denies: dysuria, discharge Musculoskeletal: denies: back pain, arthralgia Skin: denies: rash, lesions Neurological: denies: headache, weakness Physical Exam - Physical Exam Vital Signs: Vital Signs 09/18/18 09/18/18 09:13 09:38 Temperature 97.8 F Pulse Rate 78 Pulse Rate [ 85 Anterior Bilateral Throughout] Respiratory 24 Rate Respiratory 20 Rate [Anterior Bilateral Throughout] Blood Pressure 164/96 O2 Sat by Pulse 98 Oximetry Physical Exam: GENERAL: The patient is well-developed well-nourished. HENT: Normocephalic. Atraumatic. Patient has moist mucous membranes. Oropharynx is clear. There is a balloon-like and/or cystic structure to the bilateral nasal passages that appear to be coming from the septum. EYES: Extraocular motions are intact. Pupils equal reactive to light bilaterally. NECK: Supple. Trachea is midline. CHEST/LUNGS: Clear to mild wheezing throughout the chest. No tachypnea or accessory muscle use. Occasional dry cough heard. There is no respiratory distress noted. HEART/CARDIOVASCULAR: Regular. There is no tachycardia. There is no murmur. ABDOMEN: Abdomen is soft, nontender. Patient has normal bowel sounds. There is no abdominal distention. SKIN: Skin is warm and dry. NEURO: The patient is awake, alert, and oriented. The patient is cooperative. The patient has no focal neurologic deficits. The patient has normal speech. MUSCULOSKELETAL: There is no tenderness or deformity. There is no limitation range of motion. There is no evidence of acute injury. ED Course Vital Signs 09/18/18 09/18/18 09:13 09:38 Temperature 97.8 F Pulse Rate 78 Pulse Rate [ 85 Anterior Bilateral Throughout] Respiratory 24 Rate Respiratory 20 Rate [Anterior Bilateral Throughout] Blood Pressure 164/96 O2 Sat by Pulse 98 Oximetry ED Medical Decision Making - Radiology Data Radiology results: image reviewed interpreted by me: Chest x-ray does not show any acute process. There are no pleural effusions, obvious pneumonia and there is no pneumothorax. - Medical Decision Making This patient presents to the emergency department with a few days of some wheezing, dry cough and what appears to be an asthma exacerbation. He has been out of his medications to treat himself at home. A chest x-ray was done that does not show any pleural effusions, pneumothorax, pneumonia, focal consolidation or any other acute process. On examination, the patient does have some mild bronchospasm does not appear in any respiratory distress. He also has some abnormal appearance to the nasal passages. There are some balloon or cystic-like structures seen in each nasal passage that appear to be stemming from the septum. This could be a mucocele versus a cyst versus other. The patient was given some steroids and a breathing treatment. Upon reevaluation he is feeling improved. He appears safe for discharge home and he has been given a prescription for steroids and albuterol inhaler and breathing treatments. The patient is also been given multiple referrals for otolaryngology regarding this abnormal appearance of his nasal passages. He has been instructed to return to the emergency Department with any worsening of symptoms or any acute distress. - Differential Diagnosis asthma, bronchitis, pneumonia, nasal mucocele, nasal cysts, nasal polyps Critical Care Time: No Critical care attestation.: If time is entered above; I have spent that time in minutes in the direct care of this critically ill patient, excluding procedure time. ED Disposition Clinical Impression: Nasal airway abnormality Asthma exacerbation Qualifiers: Asthma severity: unspecified severity Asthma persistence: unspecified Qualified Code(s): J45.901 - Unspecified asthma with (acute) exacerbation Hypertension Qualifiers: Hypertension type: essential hypertension Qualified Code(s): I10 - Essential (primary) hypertension Disposition: DC- TO HOME OR SELFCARE Is pt being admited?: No Condition: Stable Instructions: Asthma (ED), Hypertension (ED) Additional Instructions: Please follow up with a primary care physician in the next few days. Return to the emergency Department with any worsening of your symptoms or any acute distress. I am giving you a referral for a few different ear nose and throat physicians regarding the swelling and abnormal findings on your nasal examination. These may be something benign like cysts or something we call a mucocele, but it is imperative that he follow up with the specialist to make sure it is not something cancers or malignant, as well as to make sure it is not occluding your nasal airway. Prescriptions: predniSONE [Deltasone] 20 mg PO BID #10 tab ALBUTEROL Inhaler (OR & NICU) [ProAir HFA Inhaler] 2 puff IH QID PRN #1 inhalation PRN Reason: Shortness Of Breath ALBUTEROL NEB's [Proventil 0.083% NEBS] 2.5 mg IH TID PRN #1 box PRN Reason: Wheezing Referrals: BE DIAZ MD [Staff Physician] - 2-3 Days YUNG DELGADO MD [Staff Physician] - 2-3 Days OCHOA GRANADOS MD [Staff Physician] - 2-3 Days JEN KEY MD [Staff Physician] - 2-3 Days Time of Disposition: 11:11
--- NOTE | 2018-09-18 10:20 | XRay Report ---
CHEST 2 VIEWS 1007 INDICATION / CLINICAL INFORMATION: cough. COMPARISON: 08/20/2018 FINDINGS: SUPPORT DEVICES: None. HEART / MEDIASTINUM: No significant abnormality. LUNGS / PLEURA: No significant pulmonary or pleural abnormality. No pneumothorax. ADDITIONAL FINDINGS: No significant additional findings. IMPRESSION: No significant acute abnormality Signer Name: Eagle Torres MD Signed: 09/18/2018 10:15 AM Workstation Name: [id number]
== END 2018-09-18 11:16 | disposition home or self-care (01) ==
LOC: ED 08:59
DX: J45.901 Unspecified asthma with (acute) exacerbation (principal); R68.89 Other general symptoms and signs; I10 Essential (primary) hypertension; J45.909 Unspecified asthma, uncomplicated; Z87.891 Personal history of nicotine dependence; Z98.890 Other specified postprocedural states
CPT/HCPCS: 71046; 94640; 99283; J7512

== ENCOUNTER 2018-10-13 09:14 | Emergency (ER) | payer SELFPAY ==
[2018-10-13] MEDS ORDERED: ATROVENT IH ONE (09:24)
[2018-10-13] MEDS ORDERED: PROVENTIL IH ONE (09:24)
[2018-10-13] MEDS ORDERED: MAGNESIUM SULFATE 2GM/50ML 2 GM/50 ML BAG IV ONE (09:24)
[2018-10-13] MEDS ORDERED: SOLU-Medrol IV ONE (09:24)
--- NOTE | 2018-10-13 10:01 | Emergency Department Report ---
ED Asthma HPI - General Chief Complaint: Adult Asthma Stated Complaint: ASTHMA Time Seen by Provider: 10/13/18 09:22 Source: patient, old records reviewed Mode of arrival: Ambulatory Limitations: No Limitations - History of Present Illness Initial Comments: 53-year-old male with a past medical history of asthma and hypertension presents to the Hospital complaining of asthma attack that started at 3 AM today. Patient ran out of all his bronchial dilators one week ago. He is also only intermittently taking his unknown blood pressure medication to try to make his prescription last. Last BP medication dose was 2 days ago. Patient complains of no wheezing, shortness of breath, and dry cough. He denies chest pain, calf tenderness, or leg edema. No previous history of intubations. Does not have a primary care doctor - Related Data Previous Rx's Medication Instructions Recorded Last Taken Type predniSONE [Deltasone] 50 mg PO QDAY #5 tablet 01/20/16 Unknown Rx ALBUTEROL Inhaler (OR & NICU) 1 puff IH Q4H PRN #1 inha 09/11/16 Unknown Rx [ProAir HFA Inhaler] Albuterol Sulfate [Albuterol 0.63% 0.63 mg IH Q4H PRN #1 box 09/11/16 Unknown Rx NEBS] Azithromycin [Zithromax Z-SHEREE] 250 mg PO QDAY #1 pack 09/11/16 Unknown Rx ALBUTEROL Inhaler (OR & NICU) 1 puff IH Q4H PRN #1 inha 10/24/16 Unknown Rx [Proair] Albuterol Sulfate [Albuterol 0.63% 0.63 mg IH BID PRN #1 box 10/24/16 Unknown Rx NEBS] Azithromycin [Zithromax Z-SHEREE] 250 mg PO DAILY #6 tablet 10/24/16 Unknown Rx predniSONE [Deltasone] 50 mg PO QDAY #5 tab 10/24/16 Unknown Rx ALBUTEROL Inhaler (OR & NICU) 1 puff IH Q4-6H PRN #1 inha 03/12/18 Unknown Rx [ProAir HFA Inhaler] Montelukast [Singulair] 10 mg PO QPM #14 tablet 03/12/18 Unknown Rx predniSONE [Prednisone] 50 mg PO DAILY #5 tablet 03/12/18 Unknown Rx Montelukast [Singulair] 10 mg PO QPM #14 tablet 04/06/18 Unknown Rx predniSONE [Deltasone] 50 mg PO QDAY #5 tab 04/06/18 Unknown Rx ALBUTEROL Inhaler (OR & NICU) 1 puff IH Q4-6H #1 inha 08/20/18 Unknown Rx [ProAir HFA Inhaler] ALBUTEROL Inhaler (OR & NICU) 2 puff IH QID PRN #1 inhalation 09/18/18 Unknown Rx [ProAir HFA Inhaler] predniSONE [Deltasone] 20 mg PO BID #10 tab 09/18/18 Unknown Rx ALBUTEROL Inhaler (OR & NICU) 2 puff PO Q4-6H PRN #1 inha 10/13/18 Unknown Rx [ProAir HFA Inhaler] ALBUTEROL NEB's [Proventil 0.083% 2.5 mg IH TID PRN #1 box 10/13/18 Unknown Rx NEBS] Prednisone [predniSONE 10 mg 10 mg PO .TAPER #1 tab.ds.pk 10/13/18 Unknown Rx (6-Day Pack, 21 Tabs)] amLODIPine [Norvasc] 5 mg PO DAILY #30 tab 10/13/18 Unknown Rx Allergies Allergy/AdvReac Type Severity Reaction Status Date / Time No Known Allergies Allergy Verified 10/13/18 09:15 ED Review of Systems ROS: Stated complaint: ASTHMA Other details as noted in HPI Comment: All other systems reviewed and negative ED Past Medical Hx - Past Medical History Hx Hypertension: Yes (no meds) Hx Asthma: Yes Additional medical history: denies htn recheck of bp improved - Surgical History Additional Surgical History: Neck surgery 1970 - Social History Smoking Status: Never Smoker Substance Use Type: None - Medications Home Medications: Home Medications Medication Instructions Recorded Confirmed Last Taken Type predniSONE [Deltasone] 50 mg PO QDAY #5 tablet 01/20/16 Unknown Rx ALBUTEROL Inhaler (OR & NICU) 1 puff IH Q4H PRN #1 inha 09/11/16 Unknown Rx [ProAir HFA Inhaler] Albuterol Sulfate [Albuterol 0.63% 0.63 mg IH Q4H PRN #1 box 09/11/16 Unknown Rx NEBS] Azithromycin [Zithromax Z-SHEREE] 250 mg PO QDAY #1 pack 09/11/16 Unknown Rx ALBUTEROL Inhaler (OR & NICU) 1 puff IH Q4H PRN #1 inha 10/24/16 Unknown Rx [Proair] Albuterol Sulfate [Albuterol 0.63% 0.63 mg IH BID PRN #1 box 10/24/16 Unknown Rx NEBS] Azithromycin [Zithromax Z-SHEREE] 250 mg PO DAILY #6 tablet 10/24/16 Unknown Rx predniSONE [Deltasone] 50 mg PO QDAY #5 tab 10/24/16 Unknown Rx ALBUTEROL Inhaler (OR & NICU) 1 puff IH Q4-6H PRN #1 inha 03/12/18 Unknown Rx [ProAir HFA Inhaler] Montelukast [Singulair] 10 mg PO QPM #14 tablet 03/12/18 Unknown Rx predniSONE [Prednisone] 50 mg PO DAILY #5 tablet 03/12/18 Unknown Rx Montelukast [Singulair] 10 mg PO QPM #14 tablet 04/06/18 Unknown Rx predniSONE [Deltasone] 50 mg PO QDAY #5 tab 04/06/18 Unknown Rx ALBUTEROL Inhaler (OR & NICU) 1 puff IH Q4-6H #1 inha 08/20/18 Unknown Rx [ProAir HFA Inhaler] ALBUTEROL Inhaler (OR & NICU) 2 puff IH QID PRN #1 inhalation 09/18/18 Unknown Rx [ProAir HFA Inhaler] predniSONE [Deltasone] 20 mg PO BID #10 tab 09/18/18 Unknown Rx ALBUTEROL Inhaler (OR & NICU) 2 puff PO Q4-6H PRN #1 inha 10/13/18 Unknown Rx [ProAir HFA Inhaler] ALBUTEROL NEB's [Proventil 0.083% 2.5 mg IH TID PRN #1 box 10/13/18 Unknown Rx NEBS] Prednisone [predniSONE 10 mg 10 mg PO .TAPER #1 tab.ds.pk 10/13/18 Unknown Rx (6-Day Pack, 21 Tabs)] amLODIPine [Norvasc] 5 mg PO DAILY #30 tab 10/13/18 Unknown Rx ED Physical Exam - General Limitations: No Limitations - Other Other exam information: General: No limitations, patient is alert in no acute distress Head exam: Atraumatic, normocephalic Eyes exam: Normal appearance ENT: Moist mucous membrane Neck exam: Normal inspection, full range of motion, no meningismus nontender Respiratory exam: Wheezing, tachypnea, no accessory muscle use Cardiovascular: Normal rate and rhythm, normal heart sounds Abdomen: Soft, nondistended, and nontender, with normal bowel sounds, no rebound, or guarding Extremity: Full range of motion normal inspection no deformity, no calf tenderness or edema Back: Normal Inspection, full range of motion, no tenderness Neurologic: Alert, oriented x3, cranial nerves intact, no motor or sensory deficit Psychiatric: normal affect, normal mood Skin: Warm, dry, intact ED Course Vital Signs 10/13/18 10/13/18 10/13/18 09:18 09:40 09:45 Temperature 97.7 F 97.7 F Pulse Rate 96 H 90 Pulse Rate [ 77 Anterior Bilateral Throughout] Respiratory 22 22 Rate Respiratory 16 Rate [Anterior Bilateral Throughout] Blood Pressure 171/105 Blood Pressure 164/109 [Left] O2 Sat by Pulse 92 95 Oximetry 10/13/18 10:28 Temperature Pulse Rate 72 Pulse Rate [ Anterior Bilateral Throughout] Respiratory 18 Rate Respiratory Rate [Anterior Bilateral Throughout] Blood Pressure Blood Pressure 157/88 [Left] O2 Sat by Pulse 100 Oximetry - Reevaluation(s) Reevaluation #1: 10/13/18 10:56 pt feeling better with ed tx of nebs, Solu-Medrol, and magnesium. ED Medical Decision Making - Radiology Data Radiology results: report reviewed CHEST 1 VIEW INDICATION: sob, wheeze, cough. COMPARISON: 09/18/2018 FINDINGS: Support devices: None. Heart: Within normal limits. Lungs/Pleura: No acute air space or interstitial disease. Additional findings: None. IMPRESSION: No acute findings. - Medical Decision Making Patient feeling better with ED treatment Chest x-ray unremarkable Blood pressure improved Will be discharged on asthma and BP meds (patient thinks he is on Norvasc 5 mg) Follow-up advised - Differential Diagnosis asthma, CHF, pneumonia, COPD Critical Care Time: No Critical care attestation.: If time is entered above; I have spent that time in minutes in the direct care of this critically ill patient, excluding procedure time. ED Disposition Clinical Impression: Acute asthma exacerbation, Chronic hypertension, Medication refill Disposition: TO HOME OR SELFCARE Is pt being admited?: No Does the pt Need Aspirin: No Condition: Stable Instructions: Hypertension (ED), Asthma (ED) Additional Instructions: Take the medication as prescribed. Follow up with your doctor or the clini c/doctor provided. Return if symptoms worsen as indicated by your discharge instructions Prescriptions: amLODIPine [Norvasc] 5 mg PO DAILY #30 tab Prednisone [predniSONE 10 mg (6-Day Pack, 21 Tabs)] 10 mg PO .TAPER #1 tab.ds.pk ALBUTEROL Inhaler (OR & NICU) [ProAir HFA Inhaler] 2 puff PO Q4-6H PRN #1 inha PRN Reason: Shortness Of Breath ALBUTEROL NEB's [Proventil 0.083% NEBS] 2.5 mg IH TID PRN #1 box PRN Reason: Wheezing Referrals: [facility] [Provider Group] - 3-5 Days Time of Disposition: 10:59
--- NOTE | 2018-10-13 10:03 | XRay Report ---
CHEST 1 VIEW INDICATION: sob, wheeze, cough. COMPARISON: 09/18/2018 FINDINGS: Support devices: None. Heart: Within normal limits. Lungs/Pleura: No acute air space or interstitial disease. Additional findings: None. IMPRESSION: No acute findings. Signer Name: Gunnar Rodriguez Jr, MD Signed: 10/13/2018 9:59 AM Workstation Name: [id number]
[2018-10-13 10:31] VITALS: BP 157/88
== END 2018-10-13 11:20 | disposition home or self-care (01) ==
LOC: ED 09:14
DX: J45.901 Unspecified asthma with (acute) exacerbation (principal); I10 Essential (primary) hypertension; Z76.0 Encounter for issue of repeat prescription; Z79.899 Other long term (current) drug therapy; Z98.890 Other specified postprocedural states
CPT/HCPCS: 71045; 94644; 96365; 96375; 99284; J2930; J3475

== ENCOUNTER 2019-01-03 10:42 | Emergency (ER) | payer OTHER ==
[2019-01-03 10:53] VITALS: BP 179/99
[2019-01-03] MEDS ORDERED: IPRATROPIUM/ALBUTEROL SULFATE 3 ML AMPUL.NEB IH ONE (12:30)
[2019-01-03] MEDS ORDERED: predniSONE 20 MG TAB PO ONE (12:30)
--- NOTE | 2019-01-03 13:23 | Emergency Department Report ---
ED Asthma HPI - General Chief Complaint: Adult Asthma Stated Complaint: ASTHMA Time Seen by Provider: 01/03/19 13:17 Source: patient Mode of arrival: Ambulatory Limitations: No Limitations - History of Present Illness Initial Comments: This is a 53-year-old -[place] male who presents to the emergency room with congestion, cough, and wheezing. Past medical history of asthma, seasonal allergies, and hypertension. Patient states he ran out of his inhaler and nebulizer solution 2 weeks ago. He denies chest pain, fever, chills, palpitations, MD Complaint: "asthma attack", shortness of breath Onset/Timin -: week(s) Asthma History: childhood onset, history of prior ED visit Severity: mild Context: ran out of meds Associated Symptoms: dry cough - Related Data Current Asthma Therapy: inhaled bronchodilator Previous Rx's Medication Instructions Recorded Last Taken Type predniSONE [Deltasone] 50 mg PO QDAY #5 tablet 01/20/16 Unknown Rx ALBUTEROL Inhaler (OR & NICU) 1 puff IH Q4H PRN #1 inha 09/11/16 Unknown Rx [ProAir HFA Inhaler] Albuterol Sulfate [Albuterol 0.63% 0.63 mg IH Q4H PRN #1 box 09/11/16 Unknown Rx NEBS] Azithromycin [Zithromax Z-SHEREE] 250 mg PO QDAY #1 pack 09/11/16 Unknown Rx ALBUTEROL Inhaler (OR & NICU) 1 puff IH Q4H PRN #1 inha 10/24/16 Unknown Rx [Proair] Albuterol Sulfate [Albuterol 0.63% 0.63 mg IH BID PRN #1 box 10/24/16 Unknown Rx NEBS] Azithromycin [Zithromax Z-SHEREE] 250 mg PO DAILY #6 tablet 10/24/16 Unknown Rx predniSONE [Deltasone] 50 mg PO QDAY #5 tab 10/24/16 Unknown Rx ALBUTEROL Inhaler (OR & NICU) 1 puff IH Q4-6H PRN #1 inha 03/12/18 Unknown Rx [ProAir HFA Inhaler] Montelukast [Singulair] 10 mg PO QPM #14 tablet 03/12/18 Unknown Rx predniSONE [Prednisone] 50 mg PO DAILY #5 tablet 03/12/18 Unknown Rx Montelukast [Singulair] 10 mg PO QPM #14 tablet 04/06/18 Unknown Rx predniSONE [Deltasone] 50 mg PO QDAY #5 tab 04/06/18 Unknown Rx ALBUTEROL Inhaler (OR & NICU) 1 puff IH Q4-6H #1 inha 08/20/18 Unknown Rx [ProAir HFA Inhaler] ALBUTEROL Inhaler (OR & NICU) 2 puff IH QID PRN #1 inhalation 09/18/18 Unknown Rx [ProAir HFA Inhaler] predniSONE [Deltasone] 20 mg PO BID #10 tab 09/18/18 Unknown Rx Prednisone [predniSONE 10 mg 10 mg PO .TAPER #1 tab.ds.pk 10/13/18 Unknown Rx (6-Day Pack, 21 Tabs)] amLODIPine 5 mg PO DAILY #30 tab 10/13/18 Unknown Rx ALBUTEROL Inhaler (OR & NICU) 2 puff PO Q4-6H PRN #1 inha 01/03/19 Unknown Rx [ProAir HFA Inhaler] ALBUTEROL NEB's [Proventil 0.083% 2.5 mg IH TID PRN #1 box 01/03/19 Unknown Rx NEBS] methylPREDNISolone [Medrol 4MG 4 mg PO DAILY #1 tab.ds.pk 01/03/19 Unknown Rx DOSEPAK (21 tabs)] Allergies Allergy/AdvReac Type Severity Reaction Status Date / Time No Known Allergies Allergy Verified 10/13/18 09:15 ED Review of Systems ROS: Stated complaint: ASTHMA Other details as noted in HPI Constitutional: denies: chills, fever ENT: congestion. denies: ear pain, throat pain Respiratory: cough, shortness of breath, wheezing Cardiovascular: denies: chest pain, palpitations Musculoskeletal: denies: back pain, joint swelling, arthralgia Skin: denies: rash, lesions Neurological: denies: headache, weakness, paresthesias Psychiatric: denies: anxiety, depression ED Past Medical Hx - Past Medical History Previous Medical History?: Yes Hx Hypertension: Yes (no meds) Hx Asthma: Yes Additional medical history: denies htn recheck of bp improved - Surgical History Past Surgical History?: Yes Additional Surgical History: Neck surgery 1970 - Social History Smoking Status: Former Smoker Substance Use Type: Alcohol - Medications Home Medications: Home Medications Medication Instructions Recorded Confirmed Last Taken Type predniSONE [Deltasone] 50 mg PO QDAY #5 tablet 01/20/16 Unknown Rx ALBUTEROL Inhaler (OR & NICU) 1 puff IH Q4H PRN #1 inha 09/11/16 Unknown Rx [ProAir HFA Inhaler] Albuterol Sulfate [Albuterol 0.63% 0.63 mg IH Q4H PRN #1 box 09/11/16 Unknown Rx NEBS] Azithromycin [Zithromax Z-SHEREE] 250 mg PO QDAY #1 pack 09/11/16 Unknown Rx ALBUTEROL Inhaler (OR & NICU) 1 puff IH Q4H PRN #1 inha 10/24/16 Unknown Rx [Proair] Albuterol Sulfate [Albuterol 0.63% 0.63 mg IH BID PRN #1 box 10/24/16 Unknown Rx NEBS] Azithromycin [Zithromax Z-SHEREE] 250 mg PO DAILY #6 tablet 10/24/16 Unknown Rx predniSONE [Deltasone] 50 mg PO QDAY #5 tab 10/24/16 Unknown Rx ALBUTEROL Inhaler (OR & NICU) 1 puff IH Q4-6H PRN #1 inha 03/12/18 Unknown Rx [ProAir HFA Inhaler] Montelukast [Singulair] 10 mg PO QPM #14 tablet 03/12/18 Unknown Rx predniSONE [Prednisone] 50 mg PO DAILY #5 tablet 03/12/18 Unknown Rx Montelukast [Singulair] 10 mg PO QPM #14 tablet 04/06/18 Unknown Rx predniSONE [Deltasone] 50 mg PO QDAY #5 tab 04/06/18 Unknown Rx ALBUTEROL Inhaler (OR & NICU) 1 puff IH Q4-6H #1 inha 08/20/18 Unknown Rx [ProAir HFA Inhaler] ALBUTEROL Inhaler (OR & NICU) 2 puff IH QID PRN #1 inhalation 09/18/18 Unknown Rx [ProAir HFA Inhaler] predniSONE [Deltasone] 20 mg PO BID #10 tab 09/18/18 Unknown Rx Prednisone [predniSONE 10 mg 10 mg PO .TAPER #1 tab.ds.pk 10/13/18 Unknown Rx (6-Day Pack, 21 Tabs)] amLODIPine 5 mg PO DAILY #30 tab 10/13/18 Unknown Rx ALBUTEROL Inhaler (OR & NICU) 2 puff PO Q4-6H PRN #1 inha 01/03/19 Unknown Rx [ProAir HFA Inhaler] ALBUTEROL NEB's [Proventil 0.083% 2.5 mg IH TID PRN #1 box 01/03/19 Unknown Rx NEBS] methylPREDNISolone [Medrol 4MG 4 mg PO DAILY #1 tab.ds.pk 01/03/19 Unknown Rx DOSEPAK (21 tabs)] ED Physical Exam - General Limitations: No Limitations General appearance: alert, in no apparent distress - ENT ENT exam: Present: mucous membranes moist - Respiratory Respiratory exam: Present: wheezes. Absent: respiratory distress, rales, rhonchi, stridor, chest wall tenderness, accessory muscle use - Cardiovascular Cardiovascular Exam: Present: regular rate, normal rhythm. Absent: systolic murmur, diastolic murmur, rubs, gallop - Neurological Exam Neurological exam: Present: alert, oriented X3 - Psychiatric Psychiatric exam: Present: normal affect, normal mood - Skin Skin exam: Present: warm, dry, intact, normal color. Absent: rash ED Course Vital Signs 01/03/19 01/03/19 10:51 12:41 Temperature 97.5 F L Pulse Rate 58 L Pulse Rate [ 95 H Anterior] Respiratory 22 Rate Respiratory 19 Rate [Anterior] Blood Pressure 179/99 O2 Sat by Pulse 97 Oximetry ED Medical Decision Making - Medical Decision Making This is a 53-year-old male who presents with cough, wheezing, and congestion for 2 weeks. History of Asthma and seasonal allergies, and HTN. Noncompliant with medication. He ran out of medication 2 weeks ago. Patient examined by me and in slight distress. Vitals stable. Given duoneb treatment once and prednisone 60 mg po once in ER. Wheezes resolved after treatment and reports feeling better. Asthma exacerbation, Start albuterol, and Singulair, and prednisone taper. Discharged home stable. Follow up with primary care doctor. Critical care attestation.: If time is entered above; I have spent that time in minutes in the direct care of this critically ill patient, excluding procedure time. ED Disposition Clinical Impression: Cough in adult patient Asthma exacerbation Qualifiers: Asthma severity: mild Asthma persistence: intermittent Qualified Code(s): J45.21 - Mild intermittent asthma with (acute) exacerbation Disposition: DC-01 TO HOME OR SELFCARE Is pt being admited?: No Condition: Stable Instructions: Asthma (ED) Additional Instructions: It is important to use inhaler or have active albuterol inhaler and avoiding asthma triggers. Complete full course of prednisone steroids as prescribed. Follow up with Primary Care Provider in 24-72 hours. Prescriptions: methylPREDNISolone [Medrol 4MG DOSEPAK (21 tabs)] 4 mg PO DAILY #1 tab.ds.pk ALBUTEROL Inhaler (OR & NICU) [ProAir HFA Inhaler] 2 puff PO Q4-6H PRN #1 inha PRN Reason: Shortness Of Breath ALBUTEROL NEB's [Proventil 0.083% NEBS] 2.5 mg IH TID PRN #1 box PRN Reason: Wheezing Referrals: [facility] [Outside] - 3-5 Days [facility] [Outside] - 3-5 Days [facility] [Outside] - 3-5 Days Forms: Work/School Release Form(ED) Time of Disposition: 13:26
== END 2019-01-03 13:36 | disposition home or self-care (01) ==
LOC: ED 10:42
DX: J45.901 Unspecified asthma with (acute) exacerbation (principal); I10 Essential (primary) hypertension; Z79.899 Other long term (current) drug therapy; Z87.891 Personal history of nicotine dependence
CPT/HCPCS: 94640; 99283; J7512; 94644

== ENCOUNTER 2019-03-21 08:07 | Emergency (ER) | payer SELFPAY ==
[2019-03-21] MEDS ORDERED: IPRATROPIUM 0.02% NEBU 2.5 ML IH ONE (10:25)
[2019-03-21] MEDS ORDERED: predniSONE 20 MG TAB PO ONE (10:25)
[2019-03-21] MEDS ORDERED: ALBUTEROL 2.5 MG/3 ML NEBU IH ONE (10:25)
--- NOTE | 2019-03-21 10:26 | Emergency Department Report ---
Minor Respiratory - HPI Chief Complaint: Adult Asthma Stated Complaint: ASTHMA ATTACK Time Seen by Provider: 03/21/19 10:25 Duration: 2 Days Pain Location: Chest Severity: moderate Minor Respiratory: Yes Rhinorrhea, Yes Able to Tolerate Fluids, Yes Cough, No Sore Throat, No Ear Pain, No Sick Contacts, No Hemoptysis, No Chest Pain, No Shortness of Breath, No Fever Other History: 54 YO PT PRESENTS WITH COUGH AND WHEEZING. OUT OF ALLERGY MEDS. NO FEVER OR CHILLS. AMBULATORY. NO CP. NO SOB. ED Review of Systems ROS: Stated complaint: ASTHMA ATTACK Other details as noted in HPI Comment: All other systems reviewed and negative ED Past Medical Hx - Past Medical History Previous Medical History?: Yes Hx Hypertension: Yes (no meds) Hx Asthma: Yes Additional medical history: denies htn recheck of bp improved - Surgical History Past Surgical History?: No Additional Surgical History: Neck surgery 1970 - Family History Family history: no significant - Social History Smoking Status: Never Smoker - Medications Home Medications: Home Medications Medication Instructions Recorded Confirmed Last Taken Type amLODIPine 5 mg PO DAILY #30 tab 10/13/18 Unknown Rx Albuterol INH(or & Nicu Only) 2 puff IH QID PRN #1 inhalation 03/21/19 Unknown Rx [ProAir HFA Inhaler] Albuterol Sulfate [Albuterol 0.63% 0.63 mg IH Q4H PRN #1 box 03/21/19 Unknown Rx NEBS] Cetirizine HCl [ZyrTEC] 10 mg PO DAILY #30 capsule 03/21/19 Unknown Rx Fluticasone [Flonase] 1 spray NS QDAY #1 bottle 03/21/19 Unknown Rx predniSONE [Deltasone] 20 mg PO DAILY #5 tablet 03/21/19 Unknown Rx Minor Respiratory Exam - Exam General: Vital signs noted. No distress. Alert and acting appropriately. HEENT: Yes Moist Mucous Membranes, No Pharyngeal Erythema, No Pharyngeal Exudates, No Rhinorrhea, No Conjuctival Injection, No Frontal Tenderness, No Maxillary Tenderness Ear: Neither TM Bulge, Neither TM Erythema, Neither EAC Pain, Neither EAC Discharge Neck: Yes Supple, No Adenopathy Lungs: Yes Good Air Exchange, Yes Wheezes, No Ronchi, No Stridor, No Cough, No Labored Respirations, No Retractions, No Use of Accessory Muscles, No Other Abnormal Lung Sounds Heart: Yes Regular, No Murmur Abdomen: Yes Normal Bowel Sounds, No Tenderness, No Peritoneal Signs Skin: No Rash, No Edema Neurologic: Alert and oriented, no deficits. Musculoskeletal: Unremarkable. ED Medical Decision Making - Radiology Data Radiology results: report reviewed, image reviewed - Medical Decision Making xray neg medicated in ER/duoneb VSS no cp no fever or chills out of nebs at home dc home with pcp follow up VS NORMAL DOCUMENTED ON PAPER BY RN - Differential Diagnosis asthma ae Critical care attestation.: If time is entered above; I have spent that time in minutes in the direct care of this critically ill patient, excluding procedure time. ED Disposition Clinical Impression: Asthma with acute exacerbation, Medication refill Disposition: TO HOME OR SELFCARE Is pt being admited?: No Does the pt Need Aspirin: No Condition: Stable Instructions: Asthma (ED) Additional Instructions: MEDS ORDERED STAY WELL HYDRATED FOLLOW UP WITH PCP IN 48 H FOR RECHECK Prescriptions: Albuterol Sulfate [Albuterol 0.63% NEBS] 0.63 mg IH Q4H PRN #1 box PRN Reason: Wheezing predniSONE [Deltasone] 20 mg PO DAILY #5 tablet Fluticasone [Flonase] 1 spray NS QDAY #1 bottle Albuterol INH(or & Nicu Only) [ProAir HFA Inhaler] 2 puff IH QID PRN #1 inhalation PRN Reason: Shortness Of Breath Cetirizine HCl [ZyrTEC] 10 mg PO DAILY #30 capsule Referrals: BE DIAZ MD [Staff Physician] - 3-5 Days Time of Disposition: 11:27
--- NOTE | 2019-03-21 11:19 | XRay Report ---
CHEST 2 VIEWS INDICATION: cough. COMPARISON: 10/13/2018 FINDINGS: Support devices: None. Heart: Within normal limits. Lungs/pleura: No acute air space or interstitial disease. No pneumothorax. Additional findings: None. IMPRESSION: Normal chest x-ray Signer Name: Gunnar Rodriguez Jr, MD Signed: 03/21/2019 11:15 AM Workstation Name: [id number]
== END 2019-03-21 11:39 | disposition home or self-care (01) ==
LOC: ED 08:07
DX: J45.901 Unspecified asthma with (acute) exacerbation (principal); I10 Essential (primary) hypertension; Z79.899 Other long term (current) drug therapy
CPT/HCPCS: 71046; 94640; 99283; J7512

== ENCOUNTER 2019-04-08 09:45 | Emergency (ER) | payer SELFPAY ==
[2019-04-08 09:55] VITALS: BP 167/116
--- NOTE | 2019-04-08 10:10 | Emergency Department Report ---
Chief Complaint: Adult Asthma Stated Complaint: ASTHMA Time Seen by Provider: 04/08/19 10:02 - HPI History of Present Illness: hx of asthma htn, no intubations recent uri sx no fever ran out out albuterol mdi and nebs requesting refil, no wheezing or sob now running out of bp meds requesting med refill. elevated bp without cp or headache exam; runny nose lungs ctab rrr diag asymptomatic htn asthma without acute wheezing med refill request non medical emergency - Exam Vital Signs: Vital Signs 04/08/19 09:50 Temperature 98 F Pulse Rate 86 Respiratory 18 Rate Blood Pressure 167/116 O2 Sat by Pulse 96 Oximetry MSE screening note: Focused history and physical exam performed. Due to findings the following was ordered: ED Disposition for MSE Clinical Impression: Medication refill Disposition: MED SCREENING EXAM-LEFT Is pt being admited?: No Condition: Stable Time of Disposition: 10:27
== END 2019-04-08 10:30 | disposition left against medical advice (07) ==
LOC: ED 09:45
DX: R03.0 Elevated blood-pressure reading, without diagnosis of hypertension (principal); Z76.0 Encounter for issue of repeat prescription
CPT/HCPCS: 99281

== ENCOUNTER 2019-11-11 22:23 | Emergency (ER) | payer SELFPAY ==
[2019-11-11 23:30] VITALS: BP 133/88
[2019-11-11] MEDS ORDERED: ALBUTEROL 2.5 MG/3 ML NEBU IH ONE (23:36)
[2019-11-11] MEDS ORDERED: IPRATROPIUM 0.02% NEBU 2.5 ML IH ONE (23:36)
[2019-11-11] MEDS ORDERED: dexAMETHasone 20 MG/5 ML VIAL IM ONE (23:38)
--- NOTE | 2019-11-11 23:44 | Emergency Department Report ---
ED Shortness of Breath HPI - General Chief Complaint: Adult Asthma Stated Complaint: DIFFICULTY IN BREATHING Source: patient Mode of arrival: Ambulatory Limitations: No Limitations - History of Present Illness Initial Comments: Patient is a 54-year-old -[place] male with a history of hypertension and not on medication as well as asthma who presents to the ED with complaint of acute onset persistent shortness of breath, mild dry cough for the last 8 hours, worse in the last 2 hours. Patient states that he ran out of his medications, albuterol inhaler and nebulizer 2 days ago. Patient states that these medications usually help him when he has acute asthma exacerbations. Patient denies dizziness, syncope, fever, chills, chest pain, sore throat, nasal and sinus congestion, nausea and vomiting, sore throat, back pain, headache, diarrhea or change in vision and palpitations. MD Complaint: shortness of breath, cough, "asthma attack" -: Sudden, hour(s) (8) Severity: moderate Pain Scale: 5 Quality: aching Consistency: intermittent Improves With: bronchodilators (but ran out of his medications) Worsens With: nothing Known History Of: asthma Context: allergen exposure Associated Symptoms: denies other symptoms, cough Treatments Prior to Arrival: none - Related Data Home Oxygen Therapy: No Previous Rx's Medication Instructions Recorded Last Taken Type amLODIPine 5 mg PO DAILY #30 tab 10/13/18 Unknown Rx Cetirizine HCl [ZyrTEC] 10 mg PO DAILY #30 capsule 03/21/19 Unknown Rx Fluticasone [Flonase] 1 spray NS QDAY #1 bottle 03/21/19 Unknown Rx Albuterol Mdi (or & Nicu Only) 2 puff IH QID PRN #1 inhalation 11/11/19 Unknown Rx [ProAir HFA Inhaler] Albuterol Sulfate [Albuterol 0.63% 0.63 mg IH Q4H PRN #2 box 11/11/19 Unknown Rx NEBS] predniSONE [Deltasone] 40 mg PO DAILY #5 tablet 11/11/19 Unknown Rx Allergies Allergy/AdvReac Type Severity Reaction Status Date / Time No Known Allergies Allergy Verified 10/13/18 09:15 ED Review of Systems ROS: Stated complaint: DIFFICULTY IN BREATHING Other details as noted in HPI Constitutional: denies: chills, fever Eyes: denies: eye pain, eye discharge, vision change ENT: denies: ear pain, throat pain Respiratory: cough, shortness of breath, wheezing Cardiovascular: denies: chest pain, palpitations Endocrine: no symptoms reported Gastrointestinal: denies: abdominal pain, nausea, diarrhea Genitourinary: denies: urgency, dysuria Musculoskeletal: denies: back pain, joint swelling, arthralgia Skin: denies: rash, lesions Neurological: denies: headache, weakness, paresthesias Psychiatric: denies: anxiety, depression Hematological/Lymphatic: denies: easy bleeding, easy bruising ED Past Medical Hx - Past Medical History Previous Medical History?: Yes Hx Hypertension: Yes (no meds) Hx Asthma: Yes Additional medical history: denies htn recheck of bp improved - Surgical History Past Surgical History?: Yes Additional Surgical History: Neck surgery 1970 - Social History Smoking Status: Never Smoker Substance Use Type: None - Medications Home Medications: Home Medications Medication Instructions Recorded Confirmed Last Taken Type amLODIPine 5 mg PO DAILY #30 tab 10/13/18 Unknown Rx Cetirizine HCl [ZyrTEC] 10 mg PO DAILY #30 capsule 03/21/19 Unknown Rx Fluticasone [Flonase] 1 spray NS QDAY #1 bottle 03/21/19 Unknown Rx Albuterol Mdi (or & Nicu Only) 2 puff IH QID PRN #1 inhalation 11/11/19 Unknown Rx [ProAir HFA Inhaler] Albuterol Sulfate [Albuterol 0.63% 0.63 mg IH Q4H PRN #2 box 11/11/19 Unknown Rx NEBS] predniSONE [Deltasone] 40 mg PO DAILY #5 tablet 11/11/19 Unknown Rx ED Physical Exam - General Limitations: No Limitations General appearance: alert, in no apparent distress - Head Head exam: Present: atraumatic, normocephalic, normal inspection - Eye Eye exam: Present: normal appearance, PERRL, EOMI Pupils: Present: normal accommodation - ENT ENT exam: Present: normal exam, normal orophraynx, mucous membranes moist, TM's normal bilaterally, normal external ear exam - Neck Neck exam: Present: normal inspection, full ROM - Respiratory Respiratory exam: Present: wheezes (Diffuse coarse wheezes throughout). Absent: respiratory distress, rales, rhonchi, stridor, chest wall tenderness, accessory muscle use, decreased breath sounds - Cardiovascular Cardiovascular Exam: Present: regular rate, normal rhythm, normal heart sounds. Absent: systolic murmur, diastolic murmur, rubs, gallop - GI/Abdominal GI/Abdominal exam: Present: soft, normal bowel sounds. Absent: tenderness, guarding, rigid, hyperactive bowel sounds, hypoactive bowel sounds, organomegaly - Extremities Exam Extremities exam: Present: normal inspection, full ROM, normal capillary refill - Back Exam Back exam: Present: normal inspection, full ROM. Absent: tenderness, CVA tenderness (R), muscle spasm, paraspinal tenderness - Neurological Exam Neurological exam: Present: alert, oriented X3, CN II-XII intact, normal gait, reflexes normal - Psychiatric Psychiatric exam: Present: normal affect, normal mood - Skin Skin exam: Present: warm, dry, intact, normal color. Absent: rash ED Course Vital Signs 11/11/19 11/11/19 23:23 23:42 Temperature 98.4 F Pulse Rate 78 Pulse Rate [ 85 Bilateral Throughout] Respiratory 18 Rate Respiratory 20 Rate [Bilateral Throughout] Blood Pressure 133/88 O2 Sat by Pulse 95 Oximetry ED Medical Decision Making - Radiology Data Radiology results: report reviewed, image reviewed Chest x-ray shows no acute cardiopulmonary abnormalities or pneumonitis. - Medical Decision Making This is a 54-year-old -[place] male with a history of hypertension and not on medication as well as asthma who presents to the ED with complaint of acute onset persistent shortness of breath, mild dry cough for the last 8 hours, worse in the last 2 hours. Patient states that he ran out of his medications, albuterol inhaler and nebulizer 2 days ago. Patient states that these med ications usually help him when he has acute asthma exacerbations. In the ED, patient is alert and oriented x3 and is not in distress. Patient was treated in the ED with bronchodilators and also given Decadron. Chest x-ray shows no acute cardiopulmonary abnormalities or pneumonitis. On reevaluation, patient's wheezing resolved and patient shortness of breath also resolved. Patient's oxygen saturation on room air is 99%. Patient was discharge home on a refill of his bronchodilator medications and is advised to follow-up with his primary care physician in 5 to 7 days for reevaluation or return to the ED immediately if symptoms get worse. - Differential Diagnosis asthma; bronchitis; pneumonia; URI Critical care attestation.: If time is entered above; I have spent that time in minutes in the direct care of this critically ill patient, excluding procedure time. ED Disposition Clinical Impression: Shortness of breath Asthmatic bronchitis with acute exacerbation Qualifiers: Asthma severity: mild Asthma persistence: intermittent Qualified Code(s): J45.21 - Mild intermittent asthma with (acute) exacerbation Disposition: TO HOME OR SELFCARE Is pt being admited?: No Does the pt Need Aspirin: No Condition: Stable Instructions: Asthma (ED), Dyspnea (ED) Additional Instructions: Take medication with food, drink plenty of fluids and follow-up with your primary care physician in 3 to 5 days for reevaluation. Return to the ED immed iately if symptoms get worse. Prescriptions: Albuterol Sulfate [Albuterol 0.63% NEBS] 0.63 mg IH Q4H PRN #2 box PRN Reason: Wheezing predniSONE [Deltasone] 40 mg PO DAILY #5 tablet Albuterol Mdi (or & Nicu Only) [ProAir HFA Inhaler] 2 puff IH QID PRN #1 inhalation PRN Reason: Shortness Of Breath Referrals: [facility] [Provider Group] - 3-5 Days Time of Disposition: 23:45 Print Language: CZECH
--- NOTE | 2019-11-12 00:03 | XRay Report ---
CHEST 1 VIEW INDICATION: cough and wheezing COMPARISON: 03/21/2019 FINDINGS: SUPPORT DEVICES: None. HEART / MEDIASTINUM: No significant abnormality. LUNGS / PLEURA: No significant pulmonary or pleural abnormality. No pneumothorax. ADDITIONAL FINDINGS: IMPRESSION: 1. No acute cardiopulmonary disease Signer Name: Irving Kelly MD Signed: 11/11/2019 11:59 PM Workstation Name: [id number]
== END 2019-11-12 01:10 | disposition home or self-care (01) ==
LOC: ED 22:23
DX: J45.909 Unspecified asthma, uncomplicated (principal); I10 Essential (primary) hypertension; Z79.899 Other long term (current) drug therapy
CPT/HCPCS: 71045; 94644; 99283; J1100

== ENCOUNTER 2020-05-10 15:26 | Emergency (ER) | payer SELFPAY ==
--- NOTE | 2020-05-10 16:40 | Emergency Department Report ---
ED Asthma HPI - General Chief Complaint: Adult Asthma Stated Complaint: ASTHMA Source: patient Mode of arrival: Ambulatory Limitations: No Limitations - Related Data Previous Rx's Medication Instructions Recorded Last Taken Type amLODIPine 5 mg PO DAILY #30 tab 10/13/18 Unknown Rx Cetirizine HCl [ZyrTEC] 10 mg PO DAILY #30 capsule 03/21/19 Unknown Rx Fluticasone [Flonase] 1 spray NS QDAY #1 bottle 03/21/19 Unknown Rx Albuterol Mdi (or & Nicu Only) 2 puff IH QID PRN #1 inhalation 11/11/19 Unknown Rx [ProAir HFA Inhaler] Albuterol Sulfate [Albuterol 0.63% 0.63 mg IH Q4H PRN #2 box 11/11/19 Unknown Rx NEBS] predniSONE [Deltasone] 40 mg PO DAILY #5 tablet 11/11/19 Unknown Rx Allergies Allergy/AdvReac Type Severity Reaction Status Date / Time No Known Allergies Allergy Verified 10/13/18 09:15 ED Review of Systems ROS: Stated complaint: ASTHMA Other details as noted in HPI ED Past Medical Hx - Past Medical History Previous Medical History?: Yes Hx Hypertension: Yes (no meds) Hx Asthma: Yes Additional medical history: denies htn recheck of bp improved - Surgical History Past Surgical History?: Yes Additional Surgical History: Neck surgery 1970 - Social History Smoking Status: Never Smoker Substance Use Type: None - Medications Home Medications: Home Medications Medication Instructions Recorded Confirmed Last Taken Type amLODIPine 5 mg PO DAILY #30 tab 10/13/18 Unknown Rx Cetirizine HCl [ZyrTEC] 10 mg PO DAILY #30 capsule 03/21/19 Unknown Rx Fluticasone [Flonase] 1 spray NS QDAY #1 bottle 03/21/19 Unknown Rx Albuterol Mdi (or & Nicu Only) 2 puff IH QID PRN #1 inhalation 11/11/19 Unknown Rx [ProAir HFA Inhaler] Albuterol Sulfate [Albuterol 0.63% 0.63 mg IH Q4H PRN #2 box 11/11/19 Unknown Rx NEBS] predniSONE [Deltasone] 40 mg PO DAILY #5 tablet 11/11/19 Unknown Rx ED Physical Exam - General Limitations: No Limitations ED Course Vital Signs 05/10/20 15:47 Temperature 98.4 F Pulse Rate 91 H Respiratory 22 Rate Blood Pressure 155/91 O2 Sat by Pulse 97 Oximetry Critical care attestation.: If time is entered above; I have spent that time in minutes in the direct care of this critically ill patient, excluding procedure time. ED Disposition Condition: Stable
[2020-05-10] MEDS ORDERED: methylPREDNISolone Sod Succinate 125 MG/2 ML INJ IV ONE (16:41)
[2020-05-10] MEDS ORDERED: ALBUTEROL 2.5 MG/3 ML NEBU IH ONE (16:41)
[2020-05-10] MEDS ORDERED: IPRATROPIUM 0.02% NEBU 2.5 ML IH ONE (16:41)
--- NOTE | 2020-05-10 16:47 | Emergency Department Report ---
ED Asthma HPI - General Chief Complaint: Adult Asthma Stated Complaint: ASTHMA PUI?: No Time Seen by Provider: 05/10/20 16:39 Source: patient Mode of arrival: Ambulatory Limitations: No Limitations - History of Present Illness Initial Comments: Patient is a 55-year-old male that presents emergency room with complaints of shortness of breath and wheezing and cough. Patient states his asthma is acting up. Patient dates symptoms started 3 AM this morning. Patient states his symptoms are worsening. Patient states his symptoms are better with rest. Patient dates symptoms are worse with exertion. Patient denies chest pain. Patient denies fever and chills. Patient denies abdominal pain. Patient denies nausea vomiting. Patient states he is compliant with his medications but the inhalers not working. Patient states he is not being followed by primary care. Patient states nobody is managing his asthma. Patient denies recent travel. Patient denies recent international travel. Patient denies exposure to the novel coronavirus. Patient denies sick contacts. Patient denies fever and chills. Patient denies loss of smell. Patient denies diarrhea. Patient denies coming in contact with anybody with symptoms of the novel coronavirus. MD Complaint: shortness of breath, wheezing -: Sudden Asthma History: childhood onset Severity: mild Associated Symptoms: dry cough. denies: fever, chest pain, hemoptysis, leg edema, syncope Treatments Prior to Arrival: inhaled bronchodilator - Related Data Current Asthma Therapy: inhaled bronchodilator Previous Rx's Medication Instructions Recorded Last Taken Type amLODIPine 5 mg PO DAILY #30 tab 10/13/18 Unknown Rx Cetirizine HCl [ZyrTEC] 10 mg PO DAILY #30 capsule 03/21/19 Unknown Rx Fluticasone [Flonase] 1 spray NS QDAY #1 bottle 03/21/19 Unknown Rx predniSONE [Deltasone] 40 mg PO DAILY #5 tablet 11/11/19 Unknown Rx Albuterol Mdi (or & Nicu Only) 2 puff IH QID PRN #1 inhalation 05/10/20 Unknown Rx [ProAir HFA Inhaler] Albuterol Sulfate [Albuterol 0.63% 0.63 mg IH Q4H PRN #2 box 05/10/20 Unknown Rx NEBS] methylPREDNISolone [Medrol 4MG 4 mg PO DAILY 6 Days #1 tab.ds.pk 05/10/20 Unknown Rx DOSEPAK (21 tabs)] Allergies Allergy/AdvReac Type Severity Reaction Status Date / Time No Known Allergies Allergy Verified 10/13/18 09:15 ED Review of Systems ROS: Stated complaint: ASTHMA Other details as noted in HPI Constitutional: denies: chills, fever Eyes: denies: eye pain, eye discharge, vision change ENT: denies: ear pain, throat pain Respiratory: no symptoms reported, cough, shortness of breath, wheezing Cardiovascular: denies: chest pain, palpitations Endocrine: no symptoms reported Gastrointestinal: denies: abdominal pain, nausea, diarrhea Genitourinary: denies: urgency, dysuria Musculoskeletal: denies: back pain, joint swelling, arthralgia Skin: denies: rash, lesions Neurological: denies: headache, weakness, paresthesias Psychiatric: denies: anxiety, depression Hematological/Lymphatic: denies: easy bleeding, easy bruising ED Past Medical Hx - Past Medical History Previous Medical History?: Yes Hx Hypertension: Yes (no meds) Hx Asthma: Yes Additional medical history: denies htn recheck of bp improved - Surgical History Past Surgical History?: Yes Additional Surgical History: Neck surgery 1970 - Family History Family history: no significant - Social History Smoking Status: Never Smoker Substance Use Type: None - Medications Home Medications: Home Medications Medication Instructions Recorded Confirmed Last Taken Type amLODIPine 5 mg PO DAILY #30 tab 10/13/18 Unknown Rx Cetirizine HCl [ZyrTEC] 10 mg PO DAILY #30 capsule 03/21/19 Unknown Rx Fluticasone [Flonase] 1 spray NS QDAY #1 bottle 03/21/19 Unknown Rx predniSONE [Deltasone] 40 mg PO DAILY #5 tablet 11/11/19 Unknown Rx Albuterol Mdi (or & Nicu Only) 2 puff IH QID PRN #1 inhalation 05/10/20 Unknown Rx [ProAir HFA Inhaler] Albuterol Sulfate [Albuterol 0.63% 0.63 mg IH Q4H PRN #2 box 05/10/20 Unknown Rx NEBS] methylPREDNISolone [Medrol 4MG 4 mg PO DAILY 6 Days #1 tab.ds.pk 05/10/20 Unknown Rx DOSEPAK (21 tabs)] ED Physical Exam - General Limitations: No Limitations General appearance: alert, in no apparent distress - Head Head exam: Present: atraumatic, normocephalic - Eye Eye exam: Present: normal appearance - ENT ENT exam: Present: mucous membranes moist - Neck Neck exam: Present: normal inspection - Respiratory Respiratory exam: Present: wheezes. Absent: respiratory distress - Cardiovascular Cardiovascular Exam: Present: regular rate, normal rhythm, normal heart sounds. Absent: systolic murmur, diastolic murmur, rubs, gallop - GI/Abdominal GI/Abdominal exam: Present: soft, normal bowel sounds. Absent: tenderness - Rectal Rectal exam: Present: deferred - Extremities Exam Extremities exam: Present: normal inspection - Back Exam Back exam: Present: normal inspection - Neurological Exam Neurological exam: Present: alert, oriented X3 - Psychiatric Psychiatric exam: Present: normal affect, normal mood - Skin Skin exam: Present: warm, dry, intact, normal color. Absent: rash ED Course Vital Signs 05/10/20 05/10/20 15:47 17:17 Temperature 98.4 F Pulse Rate 91 H Pulse Rate [ 90 Throughout] Respiratory 22 Rate Respiratory 16 Rate [ Throughout] Blood Pressure 155/91 O2 Sat by Pulse 97 Oximetry - Reevaluation(s) Reevaluation #1: Patient states he is feeling much better. Patient's labs are pending. 05/10/20 18:01 Reevaluation #2: Patient states his symptoms have resolved. Patient states he needs refills of his asthma medications. Patient's lung sounds are clear. Patient is not having increased work to breathe. I discussed all results and clinical findings with patient. I discussed plan of care with patient. Patient agrees with plan of care. Patient is stable for discharge. Patient will be discharged home. Patient given discharge ins tructions. Patient voiced understanding of discharge instructions. 05/10/20 18:54 ED Medical Decision Making - Lab Data Result diagrams: 05/10/20 18:06 05/10/20 18:06 - Radiology Data Radiology results: report reviewed, image reviewed interpreted by me: Chest x-ray: No pneumonia, no pneumothorax, no foreign body, no osseous findings, no acute findings CHEST 1 VIEW 05/10/2020 4:58 PM INDICATION / CLINICAL INFORMATION: Shortness of breath. COMPARISON: 11/11/2019 FINDINGS: SUPPORT DEVICES: None. HEART / MEDIASTINUM: No significant abnormality. LUNGS / PLEURA: No significant pulmonary or pleural abnormality. No pneumothorax. ADDITIONAL FINDINGS: No significant additional findings. IMPRESSION: 1. No acute findings. - Medical Decision Making Patient is a 55-year-old male that presents emergency room for shortness of breath, cough and wheezing. Patient's cellulitis consistent with a asthma exacerbation. Patient given Solu-Medrol and a DuoNeb and the patient responded well. Patient symptoms resolved after treatment. Patient will be discharged home with refill of his as medications and a steroid pack. Patient had a chest x-ray which was negative for acute findings. Patient had a normal chest x-ray. I personally reviewed the chest x-ray. Patient had labs done which were essentially unremarkable except for abnormal LFTs. Patient stable for discharge. Patient discharged home. - Differential Diagnosis Asthma exacerbation, noncompliance, shortness of breath, wheezing, cough Critical care attestation.: If time is entered above; I have spent that time in minutes in the direct care of this critically ill patient, excluding procedure time. ED Disposition Clinical Impression: SOB (shortness of breath), Wheeze, Cough, Abnormal LFTs (liver function tests) Asthma exacerbation Qualifiers: Asthma severity: unspecified severity Asthma persistence: unspecified Qualified Code(s): J45.901 - Unspecified asthma with (acute) exacerbation Disposition: - TO HOME OR SELFCARE Is pt being admited?: No Does the pt Need Aspirin: No Condition: Stable Instructions: Asthma, Adult, How to Use a Nebulizer, Adult, Shortness of Breath, Adult, Asthma Attack, Cough, Adult, Lipid Profile Test, Shortness of Breath, Adult, [id number] Additional Instructions: Patient to follow-up with primary care in 2 to 3 days. Patient to follow-up with trapeze artist and major gifts manager In 2 to 3 days. Patient to avoid alcohol and Tylenol. Patient to follow-up with major gifts manager to manage his abnormal LFTs. Patient to rest. Patient to increase water. Patient to avoid strenuous exercise or heavy lifting until cleared by trapeze artist. Patient to take ibuprofen as needed for pain. Patient to take meds as directed. Patient to return to the ER if condition worsens, changes or new symptoms arise. Prescriptions: Albuterol Sulfate [Albuterol 0.63% NEBS] 0.63 mg IH Q4H PRN #2 box PRN Reason: Wheezing methylPREDNISolone [Medrol 4MG DOSEPAK (21 tabs)] 4 mg PO DAILY 6 Days #1 tab.ds.pk Albuterol Mdi (or & Nicu Only) [ProAir HFA Inhaler] 2 puff IH QID PRN #1 inhalation PRN Reason: Shortness Of Breath Referrals: PRIMARY CARE, [Primary Care Provider] - 2-3 Days BRANT SMITH MD [Staff Physician] - 2-3 Days MELVINA GONZALEZ MD [Staff Physician] - 2-3 Days Time of Disposition: 18:59
[2020-05-10] MEDS ORDERED: methylPREDNISolone Sod Succinate 125 MG/2 ML INJ IM ONE (16:53)
--- NOTE | 2020-05-10 17:47 | XRay Report ---
CHEST 1 VIEW 05/10/2020 4:58 PM INDICATION / CLINICAL INFORMATION: Shortness of breath. COMPARISON: 11/11/2019 FINDINGS: SUPPORT DEVICES: None. HEART / MEDIASTINUM: No significant abnormality. LUNGS / PLEURA: No significant pulmonary or pleural abnormality. No pneumothorax. ADDITIONAL FINDINGS: No significant additional findings. IMPRESSION: 1. No acute findings. Signer Name: Julio Cesar Bryan MD Signed: 05/10/2020 5:42 PM Workstation Name: [id number]
[2020-05-10 18:30] LABS: Hematocrit 40.4 % (35.5-45.6); Hemoglobin 13.5 gm/dl (11.8-15.2); Mean Corpuscular HGB Conc 34 % (32-34); Mean Corpuscular Volume 89 fl (84-94); Platelet Count 178 K/mm3 (140-440); Red Blood Count 4.55 M/mm3 (3.65-5.03); Red Cell Distribution Width 14.4 % (13.2-15.2)
[2020-05-10 18:44] LABS: Alanine Aminotransferase 401 units/L (7-56); Albumin 3.9 g/dL (3.9-5); BUN/Creatinine Ratio 7; Blood Urea Nitrogen 6 mg/dL (9-20); Calcium 8.6 mg/dL (8.4-10.2); Hemolysis Index 3
[2020-05-10 19:19] VITALS: BP 163/92
== END 2020-05-10 19:18 | disposition home or self-care (01) ==
LOC: ED 15:26
DX: J45.901 Unspecified asthma with (acute) exacerbation (principal); R06.02 Shortness of breath; R05 Cough; R94.5 Abnormal results of liver function studies; I10 Essential (primary) hypertension; Z79.899 Other long term (current) drug therapy; Z98.890 Other specified postprocedural states
CPT/HCPCS: 36415; 71045; 80053; 85027; 94640; 96372; 99284; J2930; 94644

== ENCOUNTER 2020-06-05 23:11 | Emergency (ER) | payer SELFPAY ==
[2020-06-05] MEDS ORDERED: IPRATROPIUM/ALBUTEROL SULFATE 3 ML AMPUL.NEB IH ONE ×2 (23:48→23:52)
[2020-06-05] MEDS ORDERED: ALBUTEROL 2.5 MG/3 ML NEBU IH ONE ×2 (23:48→23:49)
[2020-06-05] MEDS ORDERED: IPRATROPIUM 0.02% NEBU 2.5 ML IH ONE (23:49)
[2020-06-05] MEDS ORDERED: dexAMETHasone 20 MG/5 ML VIAL IM ONE (23:49)
--- NOTE | 2020-06-06 00:04 | Emergency Department Report ---
ED Asthma HPI - General Chief Complaint: Dyspnea/Respdistress Stated Complaint: ASTHMA Time Seen by Provider: 06/05/20 23:49 Source: patient Mode of arrival: Ambulatory Limitations: No Limitations - History of Present Illness Initial Comments: Patient is a 55-year-old male presents emergency room complaints of an asthma exacerbation that began 2 hours prior to arrival. He has associated shortness of breath, wheezing, dry cough, chest tightness. He states that he ran out of his albuterol inhaler and his nebulizer solution. He states he has been out for approximately a week. He states that the pollen triggers his asthma and he is not currently on anything for allergies. He denies any fever, nausea, vomiting, diarrhea, leg swelling, pleuritic chest pain. He denies any sick contacts or recent travel. He also has a past medical history of hypertension. No allergies to medications. He states he is a non-smoker. - Related Data Previous Rx's Medication Instructions Recorded Last Taken Type amLODIPine 5 mg PO DAILY #30 tab 10/13/18 Unknown Rx Cetirizine HCl [ZyrTEC] 10 mg PO DAILY #30 capsule 03/21/19 Unknown Rx methylPREDNISolone [Medrol 4MG 4 mg PO DAILY 6 Days #1 tab.ds.pk 05/10/20 Unknown Rx DOSEPAK (21 tabs)] Albuterol Mdi (or & Nicu Only) 2 puff IH QID PRN #1 inhalation 06/06/20 Unknown Rx [ProAir HFA Inhaler] Albuterol Sulfate [Albuterol 0.63% 0.63 mg IH Q4H PRN #1 box 06/06/20 Unknown Rx NEBS] Fluticasone [Flonase] 1 spray NS QDAY #1 bottle 06/06/20 Unknown Rx Loratadine 10 mg PO DAILY #30 tablet 06/06/20 Unknown Rx predniSONE [Deltasone] 40 mg PO DAILY 5 Days #10 tablet 06/06/20 Unknown Rx Allergies Allergy/AdvReac Type Severity Reaction Status Date / Time No Known Allergies Allergy Verified 10/13/18 09:15 ED Review of Systems ROS: Stated complaint: ASTHMA Other details as noted in HPI Comment: All other systems reviewed and negative ED Past Medical Hx - Past Medical History Hx Hypertension: Yes (no meds) Hx Asthma: Yes Additional medical history: denies htn recheck of bp improved - Surgical History Past Surgical History?: Yes Additional Surgical History: Neck surgery 1970 - Social History Smoking Status: Never Smoker Substance Use Type: None - Medications Home Medications: Home Medications Medication Instructions Recorded Confirmed Last Taken Type amLODIPine 5 mg PO DAILY #30 tab 10/13/18 Unknown Rx Cetirizine HCl [ZyrTEC] 10 mg PO DAILY #30 capsule 03/21/19 Unknown Rx methylPREDNISolone [Medrol 4MG 4 mg PO DAILY 6 Days #1 tab.ds.pk 05/10/20 Unknown Rx DOSEPAK (21 tabs)] Albuterol Mdi (or & Nicu Only) 2 puff IH QID PRN #1 inhalation 06/06/20 Unknown Rx [ProAir HFA Inhaler] Albuterol Sulfate [Albuterol 0.63% 0.63 mg IH Q4H PRN #1 box 06/06/20 Unknown Rx NEBS] Fluticasone [Flonase] 1 spray NS QDAY #1 bottle 06/06/20 Unknown Rx Loratadine 10 mg PO DAILY #30 tablet 06/06/20 Unknown Rx predniSONE [Deltasone] 40 mg PO DAILY 5 Days #10 tablet 06/06/20 Unknown Rx ED Physical Exam - General Limitations: No Limitations General appearance: alert, in no apparent distress - Head Head exam: Present: atraumatic, normocephalic - Eye Eye exam: Present: normal appearance - ENT ENT exam: Present: mucous membranes moist - Respiratory Respiratory exam: Present: wheezes (bilaterally expiratory), decreased breath sounds (bilaterally), prolonged expiratory. Absent: respiratory distress, rales, rhonchi, stridor, chest wall tenderness, accessory muscle use - Cardiovascular Cardiovascular Exam: Present: regular rate, normal rhythm, normal heart sounds. Absent: systolic murmur, diastolic murmur, rubs, gallop - Neurological Exam Neurological exam: Present: alert, oriented X3 - Psychiatric Psychiatric exam: Present: normal affect, normal mood - Skin Skin exam: Present: warm, dry, intact ED Course Vital Signs 06/05/20 06/06/20 23:23 01:32 Temperature 97.9 F 98.1 F Pulse Rate 91 H 81 Respiratory 16 16 Rate Blood Pressure 129/91 Blood Pressure 150/93 [Right] O2 Sat by Pulse 96 96 Oximetry ED Medical Decision Making - Medical Decision Making Patient is a 55-year-old male presents emergency room complaints of an asthma exacerbation that began 2 hours prior to arrival. He has associated shortness of breath, wheezing, dry cough, chest tightness. He states that he ran out of his albuterol inhaler and his nebulizer solution. He states he has been out for approximately a week. He states that the pollen triggers his asthma and he is not currently on anything for allergies. He denies any fever, nausea, vomiting, diarrhea, leg swelling, pleuritic chest pain. He denies any sick contacts or recent travel. He also has a past medical history of hypertension. No allergies to medications. He states he is a non-smoker. Vitals are normal. On exam: Expiratory wheezing bilaterally, decreased breath sounds bilaterally, prolonged expiratory phase. Patient given neb treatment and steroids IM. On reexamination wheezing has resolved, patient has good air movement. Patient has no hypoxia. He has no clinical signs of bacterial pneumonia or bacterial bronchitis at this time. Patient given refill of his home medications. Patient also given 5 days of steroids and allergy medications. Advised patient Please take medication as prescribed. Follow-up with your primary care doctor. Return to emergency room for new or worsening symptoms. Critical care attestation.: If time is entered above; I have spent that time in minutes in the direct care of this critically ill patient, excluding procedure time. ED Disposition Clinical Impression: Asthma exacerbation Qualifiers: Asthma severity: unspecified severity Asthma persistence: unspecified Qualified Code(s): J45.901 - Unspecified asthma with (acute) exacerbation Disposition: DC-01 TO HOME OR SELFCARE Is pt being admited?: No Does the pt Need Aspirin: No Condition: Stable Instructions: Asthma, Adult Additional Instructions: Please take medication as prescribed. Follow-up with your primary care doctor. Return to emergency room for new or worsening symptoms. Prescriptions: Albuterol Sulfate [Albuterol 0.63% NEBS] 0.63 mg IH Q4H PRN #1 box PRN Reason: Wheezing predniSONE [Deltasone] 40 mg PO DAILY 5 Days #10 tablet Fluticasone [Flonase] 1 spray NS QDAY #1 bottle Loratadine 10 mg PO DAILY #30 tablet Albuterol Mdi (or & Nicu Only) [ProAir HFA Inhaler] 2 puff IH QID PRN #1 inhalation PRN Reason: Shortness Of Breath Referrals: BE DIAZ MD [Staff Physician] - 3-5 Days [facility] [Provider Group] - 3-5 Days [facility], [LAB/CONTRACT] - 3-5 Days [facility] [Outside] - 3-5 Days Time of Disposition: 01:27 Print Language: URUGUAYAN
[2020-06-06 01:33] VITALS: BP 150/93
== END 2020-06-06 01:54 | disposition home or self-care (01) ==
LOC: ED 23:11
DX: J45.901 Unspecified asthma with (acute) exacerbation (principal); I10 Essential (primary) hypertension; Z79.899 Other long term (current) drug therapy; Z98.890 Other specified postprocedural states
CPT/HCPCS: 94640; 96372; 99282; J1100

== ENCOUNTER 2020-06-27 10:18 | Emergency (ER) | payer SELFPAY ==
[2020-06-27 10:57] VITALS: BP 152/93
[2020-06-27] MEDS ORDERED: predniSONE 20 MG TAB PO ONE (11:34)
[2020-06-27] MEDS ORDERED: IPRATROPIUM/ALBUTEROL SULFATE 3 ML AMPUL.NEB IH ONE (11:34)
--- NOTE | 2020-06-27 11:37 | Emergency Department Report ---
ED Asthma HPI - General Chief Complaint: Adult Asthma Stated Complaint: ASTHMA Time Seen by Provider: 06/27/20 11:34 Source: patient Mode of arrival: Ambulatory Limitations: No Limitations - History of Present Illness Initial Comments: This is a 55-year-old male nontoxic, well nourished in appearance, no acute signs of distress presents to the ED with c/o of acute on chronic asthma exacerbation. Patient stated she is out of her albuterol inhaler 1 month. Patient stated that she has seasonal allergies to pollen and has been outside that might have triggered her symptoms. Patient denies any cough. Patient denies any sick contact. Patient denies any recent travels, long car, recent hospital stays. Patient denies any calf pain or calf tenderness. Patient denies any chest pain, short of breath, fever, chills, nausea, vomiting, hemoptysis, numbness, tingling, headache or stiff neck. Past medical history includes asthma. MD Complaint: "asthma attack", wheezing -: This morning Severity: mild Associated Symptoms: none. denies: productive cough, dry cough, fever, chest pain, hemoptysis, leg edema, syncope - Related Data Previous Rx's Medication Instructions Recorded Last Taken Type amLODIPine 5 mg PO DAILY #30 tab 10/13/18 Unknown Rx Cetirizine HCl [ZyrTEC] 10 mg PO DAILY #30 capsule 03/21/19 Unknown Rx methylPREDNISolone [Medrol 4MG 4 mg PO DAILY 6 Days #1 tab.ds.pk 05/10/20 Un known Rx DOSEPAK (21 tabs)] Albuterol Mdi (or & Nicu Only) 2 puff IH QID PRN #1 inhalation 06/06/20 Unknown Rx [ProAir HFA Inhaler] Albuterol Sulfate [Albuterol 0.63% 0.63 mg IH Q4H PRN #1 box 06/06/20 Unknown Rx NEBS] Fluticasone [Flonase] 1 spray NS QDAY #1 bottle 06/06/20 Unknown Rx Loratadine 10 mg PO DAILY #30 tablet 06/06/20 Unknown Rx predniSONE [Deltasone] 40 mg PO DAILY 5 Days #10 tablet 06/06/20 Unknown Rx Albuterol Mdi (or & Nicu Only) 2 puff IH QID PRN #8.5 gram 06/27/20 Unknown Rx [ProAir HFA Inhaler] Prednisone [predniSONE 10 mg 10 mg PO .TAPER #1 tab.ds.pk 06/27/20 Unknown Rx (6-Day Pack, 21 Tabs)] Allergies Allergy/AdvReac Type Severity Reaction Status Date / Time No Known Allergies Allergy Verified 06/27/20 10:53 ED Review of Systems ROS: Stated complaint: ASTHMA Other details as noted in HPI Comment: All other systems reviewed and negative Constitutional: denies: chills, fever Eyes: denies: eye pain, eye discharge, vision change ENT: denies: ear pain, throat pain Respiratory: wheezing. denies: cough, shortness of breath Cardiovascular: denies: chest pain, palpitations Endocrine: no symptoms reported Gastrointestinal: denies: abdominal pain, nausea, diarrhea Genitourinary: denies: urgency, dysuria Musculoskeletal: denies: back pain, joint swelling, arthralgia Skin: denies: rash, lesions Neurological: denies: headache, weakness, paresthesias Psychiatric: denies: anxiety, depression Hematological/Lymphatic: denies: easy bleeding, easy bruising ED Past Medical Hx - Past Medical History Hx Hypertension: Yes (no meds) Hx Asthma: Yes Additional medical history: denies htn recheck of bp improved - Surgical History Additional Surgical History: Neck surgery 1970 - Social History Smoking Status: Never Smoker Substance Use Type: None - Medications Home Medications: Home Medications Medication Instructions Recorded Confirmed Last Taken Type amLODIPine 5 mg PO DAILY #30 tab 10/13/18 Unknown Rx Cetirizine HCl [ZyrTEC] 10 mg PO DAILY #30 capsule 03/21/19 Unknown Rx methylPREDNISolone [Medrol 4MG 4 mg PO DAILY 6 Days #1 tab.ds.pk 05/10/20 Unknown Rx DOSEPAK (21 tabs)] Albuterol Mdi (or & Nicu Only) 2 puff IH QID PRN #1 inhalation 06/06/20 Unknown Rx [ProAir HFA Inhaler] Albuterol Sulfate [Albuterol 0.63% 0.63 mg IH Q4H PRN #1 box 06/06/20 Unknown Rx NEBS] Fluticasone [Flonase] 1 spray NS QDAY #1 bottle 06/06/20 Unknown Rx Loratadine 10 mg PO DAILY #30 tablet 06/06/20 Unknown Rx predniSONE [Deltasone] 40 mg PO DAILY 5 Days #10 tablet 06/06/20 Unknown Rx Albuterol Mdi (or & Nicu Only) 2 puff IH QID PRN #8.5 gram 06/27/20 Unknown Rx [ProAir HFA Inhaler] Prednisone [predniSONE 10 mg 10 mg PO .TAPER #1 tab.ds.pk 06/27/20 Unknown Rx (6-Day Pack, 21 Tabs)] ED Physical Exam - General Limitations: No Limitations General appearance: alert, in no apparent distress - Head Head exam: Present: atraumatic, normocephalic - Eye Eye exam: Present: normal appearance - Neck Neck exam: Present: normal inspection, full ROM - Respiratory Respiratory exam: Present: wheezes (Expiratory wheezing bilateral). Absent: respiratory distress, rales, rhonchi, stridor, chest wall tenderness, accessory muscle use, decreased breath sounds, prolonged expiratory - Cardiovascular Cardiovascular Exam: Present: regular rate, normal rhythm, normal heart sounds. Absent: bradycardia, tachycardia, irregular rhythm, systolic murmur, diastolic murmur, rubs, gallop - Extremities Exam Extremities exam: Present: normal inspection, full ROM - Back Exam Back exam: Present: normal inspection, full ROM - Neurological Exam Neurological exam: Present: alert, oriented X3, normal gait - Psychiatric Psychiatric exam: Present: normal affect, normal mood - Skin Skin exam: Present: warm, dry, intact, normal color. Absent: rash ED Course Vital Signs 06/27/20 10:56 Temperature 97.9 F Pulse Rate 65 Respiratory 18 Rate Blood Pressure 152/93 O2 Sat by Pulse 96 Oximetry - Reevaluation(s) Reevaluation #1: 06/27/20 11:35 Patient is speaking in full sentences with no signs of distress noted. ED Medical Decision Making - Medical Decision Making This is a 55-year-old male that presents with asthma exacerbation. Patient is stable and was examined by me. Patient did receive DuoNeb and steroids in the ED which patient the symptoms has resolved and subsided. Posttreatment and there is no wheezing upon auscultation. Patient is discharged with albuterol and prednisone. Patient was referred to Follow-up with a primary care doctor in 3-5 days or if symptoms worsen and continue return to emergency room as soon as possible. At time of discharge, the patient does not seem toxic or ill in appearance. No acute signs of distress noted. Patient agrees to discharge treatment plan of care. No further questions noted by the patient. This chart is dictated with using [employer] Critical care attestation.: If time is entered above; I have spent that time in minutes in the direct care of this critically ill patient, excluding procedure time. ED Disposition Clinical Impression: Asthma exacerbation Qualifiers: Asthma severity: mild Asthma persistence: intermittent Qualified Code(s): J45.21 - Mild intermittent asthma with (acute) exacerbation Disposition: TO HOME OR SELFCARE Is pt being admited?: No Does the pt Need Aspirin: No Condition: Stable Instructions: Asthma, Adult Additional Instructions: Follow-up with a primary care doctor in 3-5 days or if symptoms worsen and continue return to emergency room as soon as possible. Prescriptions: Prednisone [predniSONE 10 mg (6-Day Pack, 21 Tabs)] 10 mg PO .TAPER #1 tab.ds.pk Albuterol Mdi (or & Nicu Only) [ProAir HFA Inhaler] 2 puff IH QID PRN #8.5 gram PRN Reason: Shortness Of Breath Referrals: PRIMARY CAREMD [Referring] - 3-5 Days BE DIAZ MD [Staff Physician] - 3-5 Days Forms: Work/School Release Form(ED) Time of Disposition: 12:07
== END 2020-06-27 12:14 | disposition home or self-care (01) ==
LOC: ED 10:18
DX: J45.901 Unspecified asthma with (acute) exacerbation (principal); I10 Essential (primary) hypertension; Z79.899 Other long term (current) drug therapy
CPT/HCPCS: 94640; 99283; J7512

== ENCOUNTER 2020-08-09 10:43 | Emergency (ER) | payer OTHER ==
[2020-08-09 11:23] VITALS: BP 155/98
[2020-08-09] MEDS ORDERED: IPRATROPIUM 0.02% NEBU 2.5 ML IH ONE (11:25)
[2020-08-09] MEDS ORDERED: ALBUTEROL 2.5 MG/3 ML NEBU IH ONE (11:25)
[2020-08-09] MEDS ORDERED: predniSONE 20 MG TAB PO ONE (11:26)
--- NOTE | 2020-08-09 11:26 | Emergency Department Report ---
Minor Respiratory - HPI Chief Complaint: Dyspnea/Respdistress Stated Complaint: ASTHMA Time Seen by Provider: 08/09/20 11:24 Duration: 2 Days Pain Location: Chest Severity: mild Minor Respiratory: Yes Able to Tolerate Fluids, Yes Cough, Yes Shortness of Breath, No Rhinorrhea, No Sore Throat, No Ear Pain, No Sick Contacts, No Hemoptysis, No Chest Pain, No Fever Other History: Mr. Son is a 55-year-old male that comes to the emergency room with wheezing. He was taken to [facility] for breathing treatment. Patient denies any chest pain. He denies any shortness of breath other than with the wheezing. He denies fever or chills. He denies any purulent sputum. He has not gotten Covid immunization. Patient is ambulatory without decreased saturation on arrival to [facility] ED Review of Systems ROS: Stated complaint: ASTHMA Other details as noted in HPI Comment: All other systems reviewed and negative ED Past Medical Hx - Past Medical History Previous Medical History?: Yes Hx Hypertension: Yes (no meds) Hx Asthma: Yes Additional medical history: denies htn recheck of bp improved - Surgical History Past Surgical History?: Yes Additional Surgical History: Neck surgery 1970 - Social History Smoking Status: Never Smoker Substance Use Type: None - Medications Home Medications: Home Medications Medication Instructions Recorded Confirmed Last Taken Type amLODIPine 5 mg PO DAILY #30 tab 10/13/18 Unknown Rx Albuterol Mdi (or & Nicu Only) 2 puff IH QID PRN #1 inhalation 08/09/20 Unknown Rx [ProAir HFA Inhaler] Albuterol Sulfate [Albuterol 0.63% 0.63 mg IH Q4H PRN #1 box 08/09/20 Unknown Rx NEBS] Cetirizine HCl [ZyrTEC] 10 mg PO DAILY #30 capsule 08/09/20 Unknown Rx Fluticasone [Flonase] 1 spray NS QDAY #1 bottle 08/09/20 Unknown Rx predniSONE [Deltasone] 20 mg PO DAILY #5 tablet 08/09/20 Unknown Rx Minor Respiratory Exam - Exam General: Vital signs noted. No distress. Alert and acting appropriately. HEENT: Yes Moist Mucous Membranes, No Pharyngeal Erythema, No Pharyngeal Exudates, No Rhinorrhea, No Conjuctival Injection, No Frontal Tenderness, No Maxillary Tenderness Ear: Neither TM Bulge, Neither TM Erythema, Neither EAC Pain, Neither EAC Discharge Neck: Yes Supple, No Adenopathy Lungs: Yes Good Air Exchange, Yes Wheezes, No Ronchi, No Stridor, No Cough, No Labored Respirations, No Retractions, No Use of Accessory Muscles, No Other Abnormal Lung Sounds Heart: Yes Regular, No Murmur Abdomen: Yes Normal Bowel Sounds, No Tenderness, No Peritoneal Signs Skin: No Rash, No Edema Neurologic: Alert and oriented, no deficits. Musculoskeletal: Unremarkable. ED Course Vital Signs 08/09/20 11:20 Temperature 98.8 F Pulse Rate 78 Respiratory 20 Rate Blood Pressure 155/98 [Right] O2 Sat by Pulse 94 Oximetry - Reevaluation(s) Reevaluation #1: 08/09/20 13:01 On reexam wheezing has ceased ED Medical Decision Making - Radiology Data Radiology results: report reviewed, image reviewed nap - Medical Decision Making xray noted with no consolidation or infiltrate Vital Signs 08/09/20 08/09/20 11:20 11:47 Temperature 98.8 F Pulse Rate 78 Pulse Rate [ 80 Anterior Bilateral Throughout] Respiratory 20 Rate Respiratory 20 Rate [Anterior Bilateral Throughout] Blood Pressure 155/98 [Right] O2 Sat by Pulse 94 Oximetry DuoNeb and prednisone given. Wheezing has diminished. On reexam patient is ambulatory, taking p.o. and in no acute distress. Patient being discharged home with discharge plan of care including PCP follow- up. Patient understands the importance of ongoing care given his asthma and his need for medications. - Differential Diagnosis ro pna Critical care attestation.: If time is entered above; I have spent that time in minutes in the direct care of this critically ill patient, excluding procedure time. ED Disposition Clinical Impression: Asthma with acute exacerbation Disposition: DC-01 TO HOME OR SELFCARE Is pt being admited?: No Does the pt Need Aspirin: No Condition: Stable Instructions: Asthma, Adult Additional Instructions: meds as ordered follow up with pcp referral below Prescriptions: Albuterol Sulfate [Albuterol 0.63% NEBS] 0.63 mg IH Q4H PRN #1 box PRN Reason: Wheezing predniSONE [Deltasone] 20 mg PO DAILY #5 tablet Fluticasone [Flonase] 1 spray NS QDAY #1 bottle Albuterol Mdi (or & Nicu Only) [ProAir HFA Inhaler] 2 puff IH QID PRN #1 inhalation PRN Reason: Shortness Of Breath Cetirizine HCl [ZyrTEC] 10 mg PO DAILY #30 capsule Referrals: BE DIAZ MD [Staff Physician] - 3-5 Days Time of Disposition: 11:57
--- NOTE | 2020-08-09 13:06 | XRay Report ---
CHEST 1 VIEW INDICATION: sob. COMPARISON: 05/10/2020 FINDINGS: SUPPORT DEVICES: None. HEART: Within normal limits. LUNGS/PLEURA: No acute air space or interstitial disease. ADDITIONAL FINDINGS: Tiny rounded metallic foreign body projects over the right apex, likely a BB. IMPRESSION: 1. No acute findings. Signer Name: Иван Montgomery MD Signed: 08/09/2020 1:01 PM Workstation Name: [id number]
== END 2020-08-09 14:25 | disposition home or self-care (01) ==
LOC: ED 10:43
DX: J45.901 Unspecified asthma with (acute) exacerbation (principal); I10 Essential (primary) hypertension; Z79.899 Other long term (current) drug therapy; Z98.890 Other specified postprocedural states
CPT/HCPCS: 71045; 94640; 99283; J7512; 94644

== ENCOUNTER 2020-08-11 10:55 | Emergency (ER) | payer OTHER ==
[2020-08-11 11:46] VITALS: BP 132/89
[2020-08-11] MEDS ORDERED: IPRATROPIUM 0.02% NEBU 2.5 ML IH ONE (12:38)
[2020-08-11] MEDS ORDERED: ALBUTEROL 2.5 MG/3 ML NEBU IH ONE (12:38)
--- NOTE | 2020-08-11 12:45 | Emergency Department Report ---
ED General Adult HPI - General Chief complaint: Adult Asthma Stated complaint: ASTHMA Time Seen by Provider: 08/11/20 12:32 Source: patient Mode of arrival: Ambulatory Limitations: No Limitations - History of Present Illness Initial comments: 55-year-old male patient with history of asthma presents to the emergency department with complaints of nonproductive cough and shortness of breath starting a few hours ago. Patient states symptoms are consistent with prior asthma exacerbations. He has never required hospitalization for his asthma. Patient used his albuterol inhaler with limited relief. No known sick contacts. No current steroid or antibiotic use. No recent travel. No new environmental exposures. Denies fever, chills, chest pain, nausea, vomiting, diaphoresis, lower extremity pain/swelling. Denies all other complaints at this time. - Related Data Previous Rx's Medication Instructions Recorded Last Taken Type amLODIPine 5 mg PO DAILY #30 tab 10/13/18 Unknown Rx Albuterol Mdi (or & Nicu Only) 2 puff IH QID PRN #1 inhalation 08/09/20 Unknown Rx [ProAir HFA Inhaler] Albuterol Sulfate [Albuterol 0.63% 0.63 mg IH Q4H PRN #1 box 08/09/20 Unknown Rx NEBS] Cetirizine HCl [ZyrTEC] 10 mg PO DAILY #30 capsule 08/09/20 Unknown Rx Fluticasone [Flonase] 1 spray NS QDAY #1 bottle 08/09/20 Unknown Rx predniSONE [Deltasone] 20 mg PO DAILY #5 tablet 08/09/20 Unknown Rx Albuterol Sulfate [Proair 90 mcg IH Q4H #1 aer.pow.ba 08/11/20 Unknown Rx Respiclick] predniSONE [Deltasone] 20 mg PO PC #7 tab 08/11/20 Unknown Rx Allergies Allergy/AdvReac Type Severity Reaction Status Date / Time No Known Allergies Allergy Verified 06/27/20 10:53 ED Review of Systems ROS: Stated complaint: ASTHMA Other details as noted in HPI Other: GENERAL: Negative for fever, chills, weight change, anorexia, fatigue. ENT: Negative for ear pain, difficulty hearing, sore throat, nasal congestion, epistaxis. CARDIOVASCULAR: Negative for chest pain, palpitations, lower extremity swelling. PULMONARY: Positive for cough and shortness of breath. GASTROINTESTINAL: Negative for abdominal pain, nausea, vomiting, diarrhea, constipation. MUSCULOSKELETAL: Negative for joint pain, joint swelling, myalgias, back pain, neck pain. NEUROLOGICAL: Negative for headache, seizure, syncope, paresthesias, weakness. INTEGUMENTARY: Negative for erythema, rash, diaphoresis, laceration, ecchymosis. HEMATOLOGICAL: Negative for hemoptysis, hematemesis, hematochezia, hematuria. PSYCHIATRIC: Negative for hallucinations, suicidal ideation, homicidal ideation, anxiety, depression. ED Past Medical Hx - Past Medical History Previous Medical History?: Yes Hx Hypertension: Yes (no meds) Hx Asthma: Yes Additional medical history: denies htn recheck of bp improved - Surgical History Past Surgical History?: Yes Additional Surgical History: Neck surgery 1970 - Social History Smoking Status: Former Smoker Substance Use Type: Alcohol - Medications Home Medications: Home Medications Medication Instructions Recorded Confirmed Last Taken Type amLODIPine 5 mg PO DAILY #30 tab 10/13/18 Unknown Rx Albuterol Mdi (or & Nicu Only) 2 puff IH QID PRN #1 inhalation 08/09/20 Unknown Rx [ProAir HFA Inhaler] Albuterol Sulfate [Albuterol 0.63% 0.63 mg IH Q4H PRN #1 box 08/09/20 Unknown Rx NEBS] Cetirizine HCl [ZyrTEC] 10 mg PO DAILY #30 capsule 08/09/20 Unknown Rx Fluticasone [Flonase] 1 spray NS QDAY #1 bottle 08/09/20 Unknown Rx predniSONE [Deltasone] 20 mg PO DAILY #5 tablet 08/09/20 Unknown Rx Albuterol Sulfate [Proair 90 mcg IH Q4H #1 aer.pow.ba 08/11/20 Unknown Rx Respiclick] predniSONE [Deltasone] 20 mg PO PC #7 tab 08/11/20 Unknown Rx ED Physical Exam - General Limitations: No Limitations - Other Other exam information: General: Awake and alert. No acute distress. Head: Atraumatic, normocephalic. Eyes: EOMI. Pupils are equal and round. Normal sclera and conjunctiva. ENT: Oral mucosa is moist. Normal pharyngeal exam. Neck: Supple. No lymphadenopathy. Pulmonary: No respiratory distress. Diffuse expiratory wheezing with diminished air movement. No stridor. No accessory muscle use. Cardiac: Regular rate and rhythm. Pulses are palpable and equal bilaterally. No lower extremity cyanosis or edema. Skin: Warm and dry. No rashes. Abdomen: Soft, non-tender, non-protuberant. No guarding, rigidity, or rebound. Bowel sounds are normal. No organomegaly or masses noted. Back: Normal alignment. No CVA tenderness. Extremities: Symmetrical. Full range of motion intact. Neurological: Alert and oriented, appropriately interactive, no focal deficits. Psych: Cooperative. Appropriate mood and affect. Speech is evenly metered. Thoughts are logically construed. ED Course Vital Signs 08/11/20 08/11/20 11:14 12:59 Temperature 97.9 F Pulse Rate 92 H Pulse Rate [ 74 Anterior Bilateral Throughout] Respiratory 24 Rate Respiratory 18 Rate [Anterior Bilateral Throughout] Blood Pressure 132/89 O2 Sat by Pulse 94 Oximetry ED Medical Decision Making - Medical Decision Making Differential diagnosis including but not limited to: asthma exacerbation, pneumonia, pleural effusion, influenza, pertussis, viral upper respiratory infection On reevaluation, patient is stable and states he is feeling much better. He is resting comfortably. No hypoxia, no respiratory distress. Ambulatory without assistance. Repeat pulse oximetry on room air is 99%. Repeat cardiopulmonary examination demonstrates improvement in both wheezing and air movement. Patient states he feels comfortable going home. No clinical indication for further diagnostic work-up or continued ED treatment at this time. Patient will be discharged home with short course of steroids + beta agonist inhaler and instructed to call his primary care provider tomorrow to arrange for close outpatient follow-up. Patient expressed understanding and is agreeable to plan of care. Strict return precautions provided. Repeat exam is unremarkable and benign. History, exam, diagnostic testing, and current condition do not suggest worrisome pathology to warrant further testing, continued ED treatment, admission, or surgical evaluation at this point. Given the low probability of a significant medical illness, it would be more likely to result in harm than benefit to perform further testing at this stage. Discussed findings, presumptive diagnosis, need for follow-up and specific signs/symptoms that should prompt immediate return to the emergency department. Instructions were explained in detail to the patient in addition to giving written discharge information. Patient expressed understanding and was given the opportunity to ask questions, all of which were satisfactorily answered prior to discharge home. Critical care attestation.: If time is entered above; I have spent that time in minutes in the direct care of this critically ill patient, excluding procedure time. ED Disposition Clinical Impression: Asthma exacerbation Qualifiers: Asthma severity: unspecified severity Asthma persistence: unspecified Qualified Code(s): J45.901 - Unspecified asthma with (acute) exacerbation Disposition: DC- TO HOME OR SELFCARE Is pt being admited?: No Does the pt Need Aspirin: No Condition: Stable Instructions: Asthma, Adult, [id number] Additional Instructions: Use Albuterol inhaler as directed. Take Prednisone with food as directed. Avoid environmental exposures, such as secondhand smoke, which may worsen your symptoms. Follow-up with your primary care provider this week. Call tomorrow to schedule appointment. Return to the emergency department immediately for new or worsening symptoms. Prescriptions: predniSONE [Deltasone] 20 mg PO PC #7 tab Albuterol Sulfate [Proair Respiclick] 90 mcg IH Q4H #1 aer.pow.ba Referrals: PRIMARY MD GIORGI [Primary Care Provider] - 3-5 Days BE DIAZ MD [Staff Physician] - 3-5 Days Time of Disposition: 14:57
== END 2020-08-11 16:01 | disposition home or self-care (01) ==
LOC: ED 10:55
DX: J45.901 Unspecified asthma with (acute) exacerbation (principal); I10 Essential (primary) hypertension; Z98.890 Other specified postprocedural states; Z87.891 Personal history of nicotine dependence; Z79.899 Other long term (current) drug therapy
CPT/HCPCS: 94640; 94644; 99282

== ENCOUNTER 2020-09-16 16:58 | Emergency (ER) | payer OTHER ==
[2020-09-16 17:52] VITALS: BP 141/91
[2020-09-16] MEDS ORDERED: IPRATROPIUM 0.02% NEBU 2.5 ML IH ONE (17:58)
[2020-09-16] MEDS ORDERED: ALBUTEROL 2.5 MG/3 ML NEBU IH ONE (17:58)
[2020-09-16] MEDS ORDERED: predniSONE 20 MG TAB PO ONE (17:59)
--- NOTE | 2020-09-16 18:26 | XRay Report ---
CHEST 2 VIEWS INDICATION / CLINICAL INFORMATION: wheezing with SOB. COMPARISON: 08/09/2020 FINDINGS: SUPPORT DEVICES: None. HEART / MEDIASTINUM: No significant abnormality. LUNGS / PLEURA: No significant pulmonary or pleural abnormality. No pneumothorax. ADDITIONAL FINDINGS: No significant additional findings. IMPRESSION: 1. No acute findings. Signer Name: Иван Horowitz MD Signed: 09/16/2020 6:22 PM Workstation Name: [id number]
--- NOTE | 2020-09-16 19:28 | Emergency Department Report ---
ED Asthma HPI - General Chief Complaint: Adult Asthma Stated Complaint: ASTHMA Time Seen by Provider: 09/16/20 17:54 Source: patient Mode of arrival: Ambulatory Limitations: No Limitations - History of Present Illness Initial Comments: This is a 55-year-old male nontoxic, well nourished in appearance, no acute signs of distress presents to the ED with c/o of acute on chronic asthma exacerbation. Patient stated she is out of her albuterol inhaler 1 month. Patient denies any cough. Patient denies any sick contact. Patient denies any recent travels, long car, recent hospital stays. Patient denies any calf pain or calf tenderness. Patient denies any chest pain, fever, chills, nausea, vomiting, hemoptysis, numbness, tingling, headache or stiff neck. Past medical history includes asthma. MD Complaint: "asthma attack", wheezing -: days(s) Severity: mild Context: ran out of meds Associated Symptoms: none. denies: productive cough, dry cough, fever, chest pain, hemoptysis, leg edema, syncope - Related Data Current Asthma Therapy: none Previous Rx's Medication Instructions Recorded Last Taken Type amLODIPine 5 mg PO DAILY #30 tab 10/13/18 Unknown Rx Albuterol Mdi (or & Nicu Only) 2 puff IH QID PRN #1 inhalation 08/09/20 Unknown Rx [ProAir HFA Inhaler] Albuterol Sulfate [Albuterol 0.63% 0.63 mg IH Q4H PRN #1 box 08/09/20 Unknown Rx NEBS] Cetirizine HCl [ZyrTEC] 10 mg PO DAILY #30 capsule 08/09/20 Unknown Rx Fluticasone [Flonase] 1 spray NS QDAY #1 bottle 08/09/20 Unknown Rx predniSONE [Deltasone] 20 mg PO DAILY #5 tablet 08/09/20 Unknown Rx Albuterol Sulfate [Proair 90 mcg IH Q4H #1 aer.pow.ba 08/11/20 Unknown Rx Respiclick] predniSONE [Deltasone] 20 mg PO PC #7 tab 08/11/20 Unknown Rx Albuterol Mdi (or & Nicu Only) 2 puff IH QID PRN #8.5 gram 09/16/20 Unknown Rx [ProAir HFA Inhaler] Prednisone [predniSONE 10 mg 10 mg PO .TAPER #1 tab.ds.pk 09/16/20 Unknown Rx (6-Day Pack, 21 Tabs)] Allergies Allergy/AdvReac Type Severity Reaction Status Date / Time No Known Allergies Allergy Verified 06/27/20 10:53 ED Review of Systems ROS: Stated complaint: ASTHMA Other details as noted in HPI Constitutional: denies: chills, fever Eyes: denies: eye pain, eye discharge, vision change ENT: denies: ear pain, throat pain Respiratory: shortness of breath, wheezing. denies: cough Cardiovascular: denies: chest pain, palpitations Endocrine: no symptoms reported Gastrointestinal: denies: abdominal pain, nausea, diarrhea Genitourinary: denies: urgency, dysuria Musculoskeletal: denies: back pain, joint swelling, arthralgia Skin: denies: rash, lesions Neurological: denies: headache, weakness, paresthesias Psychiatric: denies: anxiety, depression Hematological/Lymphatic: denies: easy bleeding, easy bruising ED Past Medical Hx - Past Medical History Hx Hypertension: Yes (no meds) Hx Asthma: Yes Additional medical history: denies htn recheck of bp improved - Surgical History Additional Surgical History: Neck surgery 1970 - Social History Smoking Status: Never Smoker - Medications Home Medications: Home Medications Medication Instructions Recorded Confirmed Last Taken Type amLODIPine 5 mg PO DAILY #30 tab 10/13/18 Unknown Rx Albuterol Mdi (or & Nicu Only) 2 puff IH QID PRN #1 inhalation 08/09/20 Unknown Rx [ProAir HFA Inhaler] Albuterol Sulfate [Albuterol 0.63% 0.63 mg IH Q4H PRN #1 box 08/09/20 Unknown Rx NEBS] Cetirizine HCl [ZyrTEC] 10 mg PO DAILY #30 capsule 08/09/20 Unknown Rx Fluticasone [Flonase] 1 spray NS QDAY #1 bottle 08/09/20 Unknown Rx predniSONE [Deltasone] 20 mg PO DAILY #5 tablet 08/09/20 Unknown Rx Albuterol Sulfate [Proair 90 mcg IH Q4H #1 aer.pow.ba 08/11/20 Unknown Rx Respiclick] predniSONE [Deltasone] 20 mg PO PC #7 tab 08/11/20 Unknown Rx Albuterol Mdi (or & Nicu Only) 2 puff IH QID PRN #8.5 gram 09/16/20 Unknown Rx [ProAir HFA Inhaler] Prednisone [predniSONE 10 mg 10 mg PO .TAPER #1 tab.ds.pk 09/16/20 Unknown Rx (6-Day Pack, 21 Tabs)] ED Physical Exam - General Limitations: No Limitations General appearance: alert, in no apparent distress - Head Head exam: Present: atraumatic, normocephalic - Eye Eye exam: Present: normal appearance - Neck Neck exam: Present: normal inspection, full ROM. Absent: lymphadenopathy - Respiratory Respiratory exam: Present: wheezes (Expiratory wheezing bilaterally). Absent: respiratory distress, rales, rhonchi, stridor, chest wall tenderness, accessory muscle use, decreased breath sounds, prolonged expiratory - Cardiovascular Cardiovascular Exam: Present: regular rate, normal rhythm, normal heart sounds. Absent: bradycardia, tachycardia, irregular rhythm, systolic murmur, diastolic murmur, rubs, gallop - GI/Abdominal GI/Abdominal exam: Present: soft. Absent: distended, tenderness - Extremities Exam Extremities exam: Present: normal inspection, full ROM - Back Exam Back exam: Present: normal inspection, full ROM. Absent: tenderness, CVA tenderness (R), CVA tenderness (L), muscle spasm, paraspinal tenderness, vertebral tenderness, rash noted - Neurological Exam Neurological exam: Present: alert, oriented X3, normal gait - Psychiatric Psychiatric exam: Present: normal affect, normal mood - Skin Skin exam: Present: warm, dry, intact, normal color. Absent: rash ED Course Vital Signs 09/16/20 09/16/20 17:51 19:08 Temperature 97.8 F Pulse Rate 79 Pulse Rate [ 79 Posterior Bilateral Throughout] Respiratory 18 Rate Respiratory 22 Rate [Posterior Bilateral Throughout] Blood Pressure 141/91 O2 Sat by Pulse 96 Oximetry - Reevaluation(s) Reevaluation #1: 09/16/20 19:28 Patient is speaking in full sentences with no signs of distress noted. ED Medical Decision Making - Radiology Data [facility] [address] [place] [address] XRay Report Signed Patient: CARLOS UNGER MR#: [id number] : 1965 Acct:[id number] Age/Sex: 55 / M ADM Date: 09/16/20 Loc: ED Attending Dr: Ordering Physician: BRANDT JOHNSON NP Date of Service: 09/16/20 Procedure(s): XR chest routine 2V Accession Number(s): [id number] cc: BRANDT JOHNSON NP Fluoro Time In Minutes: CHEST 2 VIEWS INDICATION / CLINICAL INFORMATION: wheezing with SOB. COMPARISON: 08/09/2020 FINDINGS: SUPPORT DEVICES: None. HEART / MEDIASTINUM: No significant abnormality. LUNGS / PLEURA: No significant pulmonary or pleural abnormality. No pneumothorax. ADDITIONAL FINDINGS: No significant additional findings. IMPRESSION: 1. No acute findings. Signer Name: Иван Horowitz MD Signed: 09/16/2020 6:22 PM Workstation Name: [id number] Transcribed By: PEÑA Dictated By: Иван Horowitz MD Electronically Authenticated By: Иван Horowitz MD Signed Date/Time: 09/16/201821 DD/ 21 TD/TT: - Medical Decision Making This is a 55-year-old male that presents with asthma exacerbation. Patient is stable and was examined by me. Chest x-ray has been obtained and dictated by the radiologist within normal limits. Patient is notified of the x-ray report with no questions noted by the patient. Patient did receive DuoNeb and steroids in the ED which patient the symptoms has resolved and subsided. Posttreatment and there is no wheezing upon auscultation. Patient is discharged with albuterol and prednisone. Patient was referred to Follow-up with a primary care doctor in 3-5 days or if symptoms worsen and continue return to emergency room as soon as possible. At time of discharge, the patient does not seem toxic or ill in appearance. No acute signs of distress noted. Patient agrees to discharge treatment plan of care. No further questions noted by the patient. This chart is dictated with using [employer] Critical care attestation.: If time is entered above; I have spent that time in minutes in the direct care of this critically ill patient, excluding procedure time. ED Disposition Clinical Impression: Asthma exacerbation Qualifiers: Asthma severity: mild Asthma persistence: intermittent Qualified Code(s): J45.21 - Mild intermittent asthma with (acute) exacerbation Disposition: TO HOME OR SELFCARE Is pt being admited?: No Does the pt Need Aspirin: No Condition: Stable Instructions: Asthma, Adult Additional Instructions: Follow-up with a primary care doctor in 3-5 days or if symptoms worsen and continue return to emergency room as soon as possible. Prescriptions: Prednisone [predniSONE 10 mg (6-Day Pack, 21 Tabs)] 10 mg PO .TAPER #1 tab.ds.pk Albuterol Mdi (or & Nicu Only) [ProAir HFA Inhaler] 2 puff IH QID PRN #8.5 gram PRN Reason: Shortness Of Breath Referrals: PRIMARY CAREMD [Referring] - 3-5 Days BE DIAZ MD [Staff Physician] - 3-5 Days Forms: Work/School Release Form(ED) Time of Disposition: 20:05
== END 2020-09-16 20:20 | disposition home or self-care (01) ==
LOC: ED 16:58
DX: J45.901 Unspecified asthma with (acute) exacerbation (principal); I10 Essential (primary) hypertension; Z79.899 Other long term (current) drug therapy; Z98.890 Other specified postprocedural states
CPT/HCPCS: 71046; 94644; 99283; J7512

== ENCOUNTER 2020-10-27 11:13 | Emergency (ER) | payer OTHER ==
[2020-10-27] MEDS ORDERED: IPRATROPIUM 0.02% NEBU 2.5 ML IH ONE (15:11)
[2020-10-27] MEDS ORDERED: dexAMETHasone 20 MG/5 ML VIAL IM ONE (15:11)
[2020-10-27] MEDS ORDERED: ALBUTEROL 2.5 MG/3 ML NEBU IH ONE (15:11)
--- NOTE | 2020-10-27 15:14 | Emergency Department Report ---
ED Asthma HPI - General Chief Complaint: Adult Asthma Stated Complaint: ASTHMA Time Seen by Provider: 10/27/20 15:09 Source: patient Mode of arrival: Ambulatory Limitations: No Limitations - History of Present Illness Initial Comments: 55-year-old -[place] male presents to the emergency room stating his asthma is flaring up. Patient states that it started last night and progressively gotten worse. Patient is unvaccinated. He denies any symptoms of COVID-. Last Covid test was -2 weeks ago. He has no no fever no chills no shortness of breath chest wheezing and cough. Patient states he is ran out of his medication. Does have a history of asthma and hypertension. MD Complaint: "asthma attack", wheezing -: Last night Severity: mild Context: ran out of meds - Related Data Current Asthma Therapy: inhaled bronchodilator Previous Rx's Medication Instructions Recorded Last Taken Type amLODIPine 5 mg PO DAILY #30 tab 10/13/18 Unknown Rx Albuterol Mdi (or & Nicu Only) 2 puff IH QID PRN #1 inhalation 08/09/20 Unknown Rx [ProAir HFA Inhaler] Albuterol Sulfate [Albuterol 0.63% 0.63 mg IH Q4H PRN #1 box 08/09/20 Unknown Rx NEBS] Cetirizine HCl [ZyrTEC] 10 mg PO DAILY #30 capsule 08/09/20 Unknown Rx Fluticasone [Flonase] 1 spray NS QDAY #1 bottle 08/09/20 Unknown Rx Albuterol Sulfate [Proair 90 mcg IH Q4H #1 aer.pow.ba 08/11/20 Unknown Rx Respiclick] predniSONE [Deltasone] 20 mg PO PC #7 tab 08/11/20 Unknown Rx Albuterol Mdi (or & Nicu Only) 2 puff IH QID PRN #8.5 gram 09/16/20 Unknown Rx [ProAir HFA Inhaler] Prednisone [predniSONE 10 mg 10 mg PO .TAPER #1 tab.ds.pk 09/16/20 Unknown Rx (6-Day Pack, 21 Tabs)] Albuterol Sulfate [Albuterol 0.63% 0.63 mg IH TID PRN #270 ml 10/27/20 Unknown Rx NEBS] Albuterol Sulfate [Proventil Hfa] 6.7 gm IH QID #1 hfa.aer.ad 10/27/20 Unknown Rx predniSONE [Deltasone] 20 mg PO DAILY #5 tablet 10/27/20 Unknown Rx Allergies Allergy/AdvReac Type Severity Reaction Status Date / Time No Known Allergies Allergy Verified 10/27/20 12:58 ED Review of Systems ROS: Stated complaint: ASTHMA Other details as noted in HPI Comment: All other systems reviewed and negative ED Past Medical Hx - Past Medical History Hx Hypertension: Yes (no meds) Hx Asthma: Yes Additional medical history: denies htn recheck of bp improved - Surgical History Additional Surgical History: Neck surgery 1970 - Social History Smoking Status: Never Smoker - Medications Home Medications: Home Medications Medication Instructions Recorded Confirmed Last Taken Type amLODIPine 5 mg PO DAILY #30 tab 10/13/18 Unknown Rx Albuterol Mdi (or & Nicu Only) 2 puff IH QID PRN #1 inhalation 08/09/20 Unknown Rx [ProAir HFA Inhaler] Albuterol Sulfate [Albuterol 0.63% 0.63 mg IH Q4H PRN #1 box 08/09/20 Unknown Rx NEBS] Cetirizine HCl [ZyrTEC] 10 mg PO DAILY #30 capsule 08/09/20 Unknown Rx Fluticasone [Flonase] 1 spray NS QDAY #1 bottle 08/09/20 Unknown Rx Albuterol Sulfate [Proair 90 mcg IH Q4H #1 aer.pow.ba 08/11/20 Unknown Rx Respiclick] predniSONE [Deltasone] 20 mg PO PC #7 tab 08/11/20 Unknown Rx Albuterol Mdi (or & Nicu Only) 2 puff IH QID PRN #8.5 gram 09/16/20 Unknown Rx [ProAir HFA Inhaler] Prednisone [predniSONE 10 mg 10 mg PO .TAPER #1 tab.ds.pk 09/16/20 Unknown Rx (6-Day Pack, 21 Tabs)] Albuterol Sulfate [Albuterol 0.63% 0.63 mg IH TID PRN #270 ml 10/27/20 Unknown Rx NEBS] Albuterol Sulfate [Proventil Hfa] 6.7 gm IH QID #1 hfa.aer.ad 10/27/20 Unknown Rx predniSONE [Deltasone] 20 mg PO DAILY #5 tablet 10/27/20 Unknown Rx ED Physical Exam - General Limitations: No Limitations General appearance: alert, in no apparent distress - Head Head exam: Present: atraumatic, normocephalic - Eye Eye exam: Present: normal appearance - ENT ENT exam: Present: mucous membranes moist - Neck Neck exam: Present: normal inspection - Respiratory Respiratory exam: Present: normal lung sounds bilaterally. Absent: respiratory distress, wheezes, chest wall tenderness, accessory muscle use - Cardiovascular Cardiovascular Exam: Present: regular rate, normal rhythm. Absent: systolic murmur, diastolic murmur, rubs, gallop - GI/Abdominal GI/Abdominal exam: Present: soft, normal bowel sounds - Rectal Rectal exam: Present: deferred - Extremities Exam Extremities exam: Present: normal inspection - Back Exam Back exam: Present: normal inspection - Neurological Exam Neurological exam: Present: alert, oriented X3 - Psychiatric Psychiatric exam: Present: normal affect, normal mood - Skin Skin exam: Present: warm, dry, intact, normal color. Absent: rash ED Course Vital Signs 10/27/20 12:58 Temperature 98.4 F Pulse Rate 84 Respiratory 17 Rate Blood Pressure 151/86 [Left] O2 Sat by Pulse 96 Oximetry - Reevaluation(s) Reevaluation #1: 10/27/20 18:50 feels much better ED Medical Decision Making - Medical Decision Making 55-year-old -[place] male presents to the emergency room stating his asthma is flaring up. Patient states that it started last night and progressively gotten worse. Patient is unvaccinated. He denies any symptoms of COVID-. Last Covid test was -2 weeks ago. He has no no fever no chills no shortness of breath chest wheezing and cough. Patient states he is ran out of his medication. Does have a history of asthma and hypertension. patient was given albuterol Critical care attestation.: If time is entered above; I have spent that time in minutes in the direct care of this critically ill patient, excluding procedure time. ED Disposition Clinical Impression: Asthma Disposition: 01 HOME / SELF CARE / HOMELESS Is pt being admited?: No Does the pt Need Aspirin: No Condition: Stable Instructions: Asthma (ED), Asthma, Adult, [id number] Additional Instructions: Please complete your prednisone as prescribed. Use your nebulizer or inhaler as needed for shortness of breath wheezing. Follow-up with a primary care provider in the next 3 to 5 days for reevaluation. Prescriptions: Albuterol Sulfate [Albuterol 0.63% NEBS] 0.63 mg IH TID PRN #270 ml PRN Reason: Wheezing predniSONE [Deltasone] 20 mg PO DAILY #5 tablet Albuterol Sulfate [Proventil Hfa] 6.7 gm IH QID #1 hfa.aer.ad Referrals: PRIMARY CARE, [Primary Care Provider] - 3-5 Days Time of Disposition: 19:42
[2020-10-27 19:54] VITALS: BP 143/86
== END 2020-10-27 19:54 | disposition home or self-care (01) ==
LOC: ED 11:13
DX: J45.909 Unspecified asthma, uncomplicated (principal); I10 Essential (primary) hypertension; Z79.899 Other long term (current) drug therapy
CPT/HCPCS: 94640; 96372; 99283; J1100

== ENCOUNTER 2020-11-03 17:53 | Emergency (ER) | payer OTHER ==
[2020-11-03 18:15] VITALS: BP 113/71
--- NOTE | 2020-11-03 18:44 | XRay Report ---
CHEST 2 VIEWS INDICATION / CLINICAL INFORMATION: chest pain. COMPARISON: 09/16/2020 FINDINGS: SUPPORT DEVICES: None. HEART / MEDIASTINUM: No significant abnormality. LUNGS / PLEURA: No significant pulmonary or pleural abnormality. No pneumothorax. ADDITIONAL FINDINGS: Retained metallic shrapnel/BBs within the right neck, unchanged IMPRESSION: 1. No acute findings. Signer Name: Thomas Farfan MD Signed: 11/03/2020 6:40 PM Workstation Name: [id number]
[2020-11-03 19:54] LABS: Basophils # (Auto) 0.1 K/mm3 (0.0-0.1); Basophils % (Auto) 0.7 % (0.0-1.8); Eosinophils # (Auto) 0.4 K/mm3 (0.0-0.4); Eosinophils % (Auto) 5.8 % (0.0-4.3); Hematocrit 41.5 % (35.5-45.6); Hemoglobin 13.6 gm/dl (11.8-15.2); Lymphocytes # (Auto) 2.7 K/mm3 (1.2-5.4); Lymphocytes % (Auto) 35.4 % (13.4-35.0); Mean Corpuscular HGB Conc 33 % (32-34); Mean Corpuscular Volume 89 fl (84-94); Monocytes # (Auto) 0.6 K/mm3 (0.0-0.8); Monocytes % (Auto) 7.4 % (0.0-7.3); Platelet Count 190 K/mm3 (140-440); Red Blood Count 4.67 M/mm3 (3.65-5.03); Red Cell Distribution Width 16.1 % (13.2-15.2)
[2020-11-03 20:06] LABS: Alanine Aminotransferase 11 units/L (7-56); Albumin 3.6 g/dL (3.9-5); BUN/Creatinine Ratio 10; Blood Urea Nitrogen 8 mg/dL (9-20); Calcium 8.7 mg/dL (8.4-10.2); Hemolysis Index 6
--- NOTE | 2020-11-05 08:56 | Electrocardiograph Report ---
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
== END 2020-11-04 17:38 | disposition left against medical advice (07) ==
LOC: ED 17:53
DX: R07.9 Chest pain, unspecified (principal); Z53.21 Procedure and treatment not carried out due to patient leaving prior to being seen by health care provider
CPT/HCPCS: 36415; 71046; 80053; 83880; 84484; 85025; 93005

== ENCOUNTER 2020-11-28 19:48 | Emergency (ER) | payer OTHER ==
[2020-11-28] MEDS ORDERED: IPRATROPIUM/ALBUTEROL SULFATE 3 ML AMPUL.NEB IH ONE (20:06)
[2020-11-28] MEDS ORDERED: predniSONE 20 MG TAB PO ONE (20:06)
--- NOTE | 2020-11-28 20:11 | Emergency Department Report ---
ED Asthma HPI - General Stated Complaint: ASTHMA Time Seen by Provider: 11/28/20 20:06 - History of Present Illness Initial Comments: pt is a 55 y/o aam with hx of asthma who presents for sob and wheezing x this am, states he out of albuterol inhaler. Believes symptoms initiated by change in weather, pt deneis fever or chills, no n/v no productive cough, no dizziness or lightheadedness. Symptoms are exacerbated by environmental exposure, symptoms are relieved by albuterol inhaler. There are no other symptoms , pt drove self to ed, is ambulatory , and speaking in full sentences. MD Complaint: shortness of breath, wheezing - Related Data Previous Rx's Medication Instructions Recorded Last Taken Type amLODIPine 5 mg PO DAILY #30 tab 10/13/18 Unknown Rx Albuterol Mdi (or & Nicu Only) 2 puff IH QID PRN #1 inhalation 08/09/20 Unknown Rx [ProAir HFA Inhaler] Albuterol Sulfate [Albuterol 0.63% 0.63 mg IH Q4H PRN #1 box 08/09/20 Unknown Rx NEBS] Cetirizine HCl [ZyrTEC] 10 mg PO DAILY #30 capsule 08/09/20 Unknown Rx Fluticasone [Flonase] 1 spray NS QDAY #1 bottle 08/09/20 Unknown Rx Albuterol Sulfate [Proair 90 mcg IH Q4H #1 aer.pow.ba 08/11/20 Unknown Rx Respiclick] predniSONE [Deltasone] 20 mg PO PC #7 tab 08/11/20 Unknown Rx Albuterol Mdi (or & Nicu Only) 2 puff IH QID PRN #8.5 gram 09/16/20 Unknown Rx [ProAir HFA Inhaler] Prednisone [predniSONE 10 mg 10 mg PO .TAPER #1 tab.ds.pk 09/16/20 Unknown Rx (6-Day Pack, 21 Tabs)] Albuterol Sulfate [Albuterol 0.63% 0.63 mg IH TID PRN #270 ml 10/27/20 Unknown Rx NEBS] Albuterol Sulfate [Proventil Hfa] 6.7 gm IH QID #1 hfa.aer.ad 10/27/20 Unknown Rx predniSONE [Deltasone] 20 mg PO DAILY #5 tablet 10/27/20 Unknown Rx Albuterol Mdi (or & Nicu Only) 2 puff IH QID PRN #1 unit 11/28/20 Unknown Rx [ProAir HFA Inhaler] Azithromycin [Zithromax TAB] 250 mg PO DAILY 5 Days #5 tab 11/28/20 Unknown Rx predniSONE [Deltasone] 20 mg PO QDAY 5 Days #10 tab 11/28/20 Unknown Rx Allergies Allergy/AdvReac Type Severity Reaction Status Date / Time No Known Allergies Allergy Verified 11/28/20 20:07 ED Review of Systems ROS: Stated complaint: ASTHMA Other details as noted in HPI Constitutional: denies: chills, fever Eyes: denies: eye pain, eye discharge, vision change ENT: denies: ear pain, throat pain Respiratory: cough, shortness of breath, wheezing Cardiovascular: as per HPI. denies: chest pain, palpitations Endocrine: no symptoms reported Gastrointestinal: denies: abdominal pain, nausea, vomiting, diarrhea Genitourinary: denies: urgency, dysuria Musculoskeletal: denies: back pain, joint swelling, arthralgia Skin: denies: rash, lesions Neurological: denies: headache, weakness, vertigo Psychiatric: denies: anxiety, depression Hematological/Lymphatic: denies: easy bleeding, easy bruising ED Past Medical Hx - Past Medical History Hx Hypertension: Yes (no meds) Hx Asthma: Yes Additional medical history: denies htn recheck of bp improved - Surgical History Additional Surgical History: Neck surgery 1970 - Social History Smoking Status: Current Every Day Smoker Substance Use Type: Alcohol, Marijuana - Medications Home Medications: Home Medications Medication Instructions Recorded Confirmed Last Taken Type amLODIPine 5 mg PO DAILY #30 tab 10/13/18 Unknown Rx Albuterol Mdi (or & Nicu Only) 2 puff IH QID PRN #1 inhalation 08/09/20 Unknown Rx [ProAir HFA Inhaler] Albuterol Sulfate [Albuterol 0.63% 0.63 mg IH Q4H PRN #1 box 08/09/20 Unknown Rx NEBS] Cetirizine HCl [ZyrTEC] 10 mg PO DAILY #30 capsule 08/09/20 Unknown Rx Fluticasone [Flonase] 1 spray NS QDAY #1 bottle 08/09/20 Unknown Rx Albuterol Sulfate [Proair 90 mcg IH Q4H #1 aer.pow.ba 08/11/20 Unknown Rx Respiclick] predniSONE [Deltasone] 20 mg PO PC #7 tab 08/11/20 Unknown Rx Albuterol Mdi (or & Nicu Only) 2 puff IH QID PRN #8.5 gram 09/16/20 Unknown Rx [ProAir HFA Inhaler] Prednisone [predniSONE 10 mg 10 mg PO .TAPER #1 tab.ds.pk 09/16/20 Unknown Rx (6-Day Pack, 21 Tabs)] Albuterol Sulfate [Albuterol 0.63% 0.63 mg IH TID PRN #270 ml 10/27/20 Unknown Rx NEBS] Albuterol Sulfate [Proventil Hfa] 6.7 gm IH QID #1 hfa.aer.ad 10/27/20 Unknown Rx predniSONE [Deltasone] 20 mg PO DAILY #5 tablet 10/27/20 Unknown Rx Albuterol Mdi (or & Nicu Only) 2 puff IH QID PRN #1 unit 11/28/20 Unknown Rx [ProAir HFA Inhaler] Azithromycin [Zithromax TAB] 250 mg PO DAILY 5 Days #5 tab 11/28/20 Unknown Rx predniSONE [Deltasone] 20 mg PO QDAY 5 Days #10 tab 11/28/20 Unknown Rx ED Physical Exam - General General appearance: alert, in no apparent distress - Head Head exam: Present: atraumatic, normocephalic - Eye Eye exam: Present: normal appearance, EOMI Pupils: Present: normal accommodation - ENT ENT exam: Present: normal orophraynx, mucous membranes moist, other (noted left nasal polyps, chronic moist boggy clear yellow drainage ) - Neck Neck exam: Present: normal inspection, full ROM. Absent: tenderness - Respiratory Respiratory exam: Present: wheezes. Absent: rales, rhonchi, stridor, chest wall tenderness, prolonged expiratory - Expanded Respiratory Exam Expanded Location: Wheezes: Right, Left, Upper - Cardiovascular Cardiovascular Exam: Present: regular rate, normal rhythm, normal heart sounds. Absent: systolic murmur, diastolic murmur, rubs, gallop - GI/Abdominal GI/Abdominal exam: Present: soft, normal bowel sounds. Absent: distended, tenderness - Rectal Rectal exam: Present: deferred - Extremities Exam Extremities exam: Present: normal inspection, full ROM, normal capillary refill. Absent: tenderness - Back Exam Back exam: Present: normal inspection, full ROM - Neurological Exam Neurological exam: Present: alert, oriented X3, CN II-XII intact, normal gait - Psychiatric Psychiatric exam: Present: normal affect, normal mood - Skin Skin exam: Present: warm, dry, intact, normal color. Absent: rash ED Medical Decision Making - Medical Decision Making Wheezing is resolved patient states breathing to baseline. Patient has ambulated from room to bathroom and back to room without increased shortness of breath or wheezing. Plan DC to home, refill butyryl inhaler, short burst steroids, Z-Florentino, patient will follow-up with ENT in 1 week as scheduled for polyp removal. Patient verbalized agreement and understanding with discharge plan. Patient will be DC'd to home in stable condition at this time Critical care attestation.: If time is entered above; I have spent that time in minutes in the direct care of this critically ill patient, excluding procedure time. ED Disposition Clinical Impression: Asthma Qualifiers: Asthma severity: mild Asthma persistence: intermittent Asthma complication type: uncomplicated Qualified Code(s): J45.20 - Mild intermittent asthma, uncomplicated Disposition: HOME / SELF CARE / HOMELESS Is pt being admited?: No Does the pt Need Aspirin: No Condition: Stable Instructions: Asthma (ED), Asthma, Adult, Sinusitis, Adult Additional Instructions: Take medications as prescribed, follow-up with ENT surgeons for polyp removal as scheduled, follow-up with your primary care doctor in 2 to 3 days. Return to emergency should symptoms worsen. Prescriptions: predniSONE [Deltasone] 20 mg PO QDAY 5 Days #10 tab Albuterol Mdi (or & Nicu Only) [ProAir HFA Inhaler] 2 puff IH QID PRN #1 unit PRN Reason: Shortness Of Breath Azithromycin [Zithromax TAB] 250 mg PO DAILY 5 Days #5 tab Referrals: OCHOA GRANADOS MD [Staff Physician] - 3-5 Days Forms: Work/School Release Form(ED) Time of Disposition: 20:55
== END 2020-11-28 21:20 | disposition home or self-care (01) ==
LOC: ED 19:48
DX: J45.909 Unspecified asthma, uncomplicated (principal); I10 Essential (primary) hypertension; Z98.890 Other specified postprocedural states; F17.290 Nicotine dependence, other tobacco product, uncomplicated
CPT/HCPCS: 94640; 99282; J7512

== ENCOUNTER 2021-01-22 08:30 | Emergency (ER) | payer OTHER ==
[2021-01-22 08:56] VITALS: BP 140/82
[2021-01-22] MEDS ORDERED: methylPREDNISolone Sod Succinate 125 MG/2 ML INJ IV ONE (09:54)
[2021-01-22] MEDS ORDERED: IPRATROPIUM 0.02% NEBU 2.5 ML IH ONE (09:54)
[2021-01-22] MEDS ORDERED: ALBUTEROL 2.5 MG/3 ML NEBU IH ONE (09:54)
--- NOTE | 2021-01-22 10:08 | Emergency Department Report ---
ED General Adult HPI - General Chief complaint: Adult Asthma Stated complaint: ASTHMA ATTACK Time Seen by Provider: 01/22/21 09:56 Source: patient Mode of arrival: Ambulatory Limitations: No Limitations - History of Present Illness Initial comments: 55-year-old -[place] male patient with history of asthma presents for asthma exacerbation starting around 5 AM this morning. Patient reports wheezing, shortness of breath, and chest tightness. He states his nebulizer and albuterol rescue inhaler not helping. He also reports that he is out of his lisinopril 5 mg and is requesting a refill. Patient denies any hemoptysis/productive cough, chest pain, fever/chills/sweats, nausea/vomiting, or loss of taste or smell. He is not vaccinated against COVID-19. He states this does feel like his normal asthma exacerbation. No prior histories of intubations per patient. Severity scale (0 -10): 0 - Related Data Previous Rx's Medication Instructions Recorded Last Taken Type Albuterol Mdi (or & Nicu Only) 2 puff IH QID PRN #1 inhalation 08/09/20 Unknown Rx [ProAir HFA Inhaler] Albuterol Sulfate [Proair 90 mcg IH Q4H #1 aer.pow.ba 08/11/20 Unknown Rx Respiclick] Albuterol Mdi (or & Nicu Only) 2 puff IH QID PRN #8.5 gram 09/16/20 Unknown Rx [ProAir HFA Inhaler] Albuterol Sulfate [Albuterol 0.63% 0.63 mg IH TID PRN #270 ml 10/27/20 Unknown Rx NEBS] Albuterol Sulfate [Proventil Hfa] 6.7 gm IH QID #1 hfa.aer.ad 10/27/20 Unknown Rx Albuterol Mdi (or & Nicu Only) 2 puff IH QID PRN #1 unit 01/22/21 Unknown Rx [ProAir HFA Inhaler] Albuterol Sulfate [Albuterol 0.63% 0.63 mg IH Q4H PRN #1 box 01/22/21 Unknown Rx NEBS] Lisinopril [Zestril] 5 mg PO QDAY #30 tablet 01/22/21 Unknown Rx Prednisone [predniSONE 10 mg 10 mg PO .TAPER #1 tab.ds.pk 01/22/21 Unknown Rx (6-Day Pack, 21 Tabs)] Allergies Allergy/AdvReac Type Severity Reaction Status Date / Time No Known Allergies Allergy Verified 01/22/21 08:34 ED Review of Systems ROS: Stated complaint: ASTHMA ATTACK Other details as noted in HPI Constitutional: denies: chills, fever, malaise ENT: denies: throat pain Respiratory: cough, shortness of breath, wheezing Cardiovascular: other (Chest tightness but denies pain) Gastrointestinal: denies: abdominal pain, nausea, vomiting Musculoskeletal: denies: back pain Skin: denies: rash, change in color Neurological: denies: headache ED Past Medical Hx - Past Medical History Hx Hypertension: Yes (no meds) Hx Asthma: Yes Additional medical history: denies htn recheck of bp improved - Surgical History Additional Surgical History: Neck surgery 1970 - Social History Smoking Status: Light Tobacco Smoker Substance Use Type: None - Medications Home Medications: Home Medications Medication Instructions Recorded Confirmed Last Taken Type Albuterol Mdi (or & Nicu Only) 2 puff IH QID PRN #1 inhalation 08/09/20 01/22/21 Unknown Rx [ProAir HFA Inhaler] Albuterol Sulfate [Proair 90 mcg IH Q4H #1 aer.pow.ba 08/11/20 01/22/21 Unknown Rx Respiclick] Albuterol Mdi (or & Nicu Only) 2 puff IH QID PRN #8.5 gram 09/16/20 01/22/21 Unknown Rx [ProAir HFA Inhaler] Albuterol Sulfate [Albuterol 0.63% 0.63 mg IH TID PRN #270 ml 10/27/20 01/22/21 Unknown Rx NEBS] Albuterol Sulfate [Proventil Hfa] 6.7 gm IH QID #1 hfa.aer.ad 10/27/20 01/22/21 Unknown Rx Albuterol Mdi (or & Nicu Only) 2 puff IH QID PRN #1 unit 01/22/21 Unknown Rx [ProAir HFA Inhaler] Albuterol Sulfate [Albuterol 0.63% 0.63 mg IH Q4H PRN #1 box 01/22/21 Unknown Rx NEBS] Lisinopril [Zestril] 5 mg PO QDAY #30 tablet 01/22/21 Unknown Rx Prednisone [predniSONE 10 mg 10 mg PO .TAPER #1 tab.ds.pk 01/22/21 Unknown Rx (6-Day Pack, 21 Tabs)] ED Physical Exam - General Limitations: No Limitations General appearance: alert, in no apparent distress - Head Head exam: Present: atraumatic, normocephalic - Eye Eye exam: Present: normal appearance. Absent: scleral icterus - Neck Neck exam: Present: normal inspection - Respiratory Respiratory exam: Present: wheezes (Diffuse). Absent: rales, rhonchi, stridor, chest wall tenderness - Cardiovascular Cardiovascular Exam: Present: regular rate, normal rhythm - Back Exam Back exam: Present: full ROM - Neurological Exam Neurological exam: Present: alert, oriented X3, normal gait - Psychiatric Psychiatric exam: Present: normal affect - Skin Skin exam: Present: warm, dry, intact, normal color. Absent: rash ED Course Vital Signs 01/22/21 01/22/21 01/22/21 08:31 08:52 08:53 Temperature 97.3 F L Pulse Rate 85 80 88 Pulse Rate [ Bilateral] Respiratory 18 18 18 Rate Respiratory Rate [Bilateral ] Blood Pressure 140/82 Blood Pressure 143/89 140/83 [Left] O2 Sat by Pulse 93 96 96 Oximetry 01/22/21 10:26 Temperature Pulse Rate Pulse Rate [ 74 Bilateral] Respiratory Rate Respiratory 16 Rate [Bilateral ] Blood Pressure Blood Pressure [Left] O2 Sat by Pulse Oximetry ED Medical Decision Making - Medical Decision Making 55-year-old -[place] male patient with history of asthma presents for asthma exacerbation starting around 5 AM this morning. Patient reports wheezing, shortness of breath, and chest tightness. He states his nebulizer and albuterol rescue inhaler not helping. He also reports that he is out of his lisinopril 5 mg and is requesting a refill. Patient denies any hemoptysis/productive cough, chest pain, fever/chills/sweats, nausea/vomiting, or loss of taste or smell. He is not vaccinated against COVID-19. He states this does feel like his normal asthma exacerbation. No prior histories of intubations per patient. Patient given continuous DuoNeb and states his symptoms have resolved. No further chest tightness or shortness of breath per patient. Heart rate and pulse ox are normal on room air. He is well-appearing and stable for discharge home. Refills given of patient's asthma medications along with steroid Dosepak. He is to follow-up with primary care in 3 to 5 days. Strict return precautions discussed in detail with patient verbalizes understanding. Critical care attestation.: If time is entered above; I have spent that time in minutes in the direct care of this critically ill patient, excluding procedure time. ED Disposition Clinical Impression: Asthma exacerbation, Medication refill Disposition: HOME / SELF CARE / HOMELESS Is pt being admited?: No Condition: Stable Instructions: Asthma, Adult Prescriptions: Albuterol Sulfate [Albuterol 0.63% NEBS] 0.63 mg IH Q4H PRN #1 box PRN Reason: Wheezing Prednisone [predniSONE 10 mg (6-Day Pack, 21 Tabs)] 10 mg PO .TAPER #1 tab.ds.pk Albuterol Mdi (or & Nicu Only) [ProAir HFA Inhaler] 2 puff IH QID PRN #1 unit PRN Reason: Shortness Of Breath Lisinopril [Zestril] 5 mg PO QDAY #30 tablet Referrals: [facility] [Provider Group] - 3-5 Days
== END 2021-01-22 12:00 | disposition home or self-care (01) ==
LOC: ED 08:30
DX: J45.901 Unspecified asthma with (acute) exacerbation (principal); Z76.0 Encounter for issue of repeat prescription; I10 Essential (primary) hypertension; F17.200 Nicotine dependence, unspecified, uncomplicated; Z79.899 Other long term (current) drug therapy
CPT/HCPCS: 94640; 96374; 99283; J2930; 94644

== ENCOUNTER 2021-02-19 20:06 | Emergency (ER) | payer OTHER ==
[2021-02-19] MEDS ORDERED: methylPREDNISolone Sod Succinate 125 MG/2 ML INJ IV ONE (20:24)
[2021-02-19] MEDS ORDERED: ALBUTEROL 2.5 MG/3 ML NEBU IH ONE (20:24)
[2021-02-19] MEDS ORDERED: IPRATROPIUM 0.02% NEBU 2.5 ML IH ONE (20:25)
--- NOTE | 2021-02-19 20:53 | Emergency Department Report ---
ED Shortness of Breath HPI - General Chief Complaint: Dyspnea/Respdistress Stated Complaint: MEJIA Time Seen by Provider: 02/19/21 20:20 Source: patient Mode of arrival: Ambulatory Limitations: No Limitations - History of Present Illness Initial Comments: Patient is 55 years old male with history of asthma and hypertension. Patient presented to the ER complaining of shortness of breath and wheezing since this morning get worse this afternoon. Patient stated that he was working when this started. Patient denied any fever or chills. No chest pain, nausea or vomiting. MD Complaint: shortness of breath -: This afternoon Consistency: constant Known History Of: asthma - Related Data Previous Rx's Medication Instructions Recorded Last Taken Type Albuterol Mdi (or & Nicu Only) 2 puff IH QID PRN #1 inhalation 08/09/20 Unknown Rx [ProAir HFA Inhaler] Albuterol Sulfate [Proair 90 mcg IH Q4H #1 aer.pow.ba 08/11/20 Unknown Rx Respiclick] Albuterol Mdi (or & Nicu Only) 2 puff IH QID PRN #8.5 gram 09/16/20 Unknown Rx [ProAir HFA Inhaler] Albuterol Sulfate [Albuterol 0.63% 0.63 mg IH TID PRN #270 ml 10/27/20 Unknown Rx NEBS] Albuterol Sulfate [Proventil Hfa] 6.7 gm IH QID #1 hfa.aer.ad 10/27/20 Unknown Rx Albuterol Mdi (or & Nicu Only) 2 puff IH QID PRN #1 unit 01/22/21 Unknown Rx [ProAir HFA Inhaler] Albuterol Sulfate [Albuterol 0.63% 0.63 mg IH Q4H PRN #1 box 01/22/21 Unknown Rx NEBS] Lisinopril [Zestril] 5 mg PO QDAY #30 tablet 01/22/21 Unknown Rx Prednisone [predniSONE 10 mg 10 mg PO .TAPER #1 tab.ds.pk 01/22/21 Unknown Rx (6-Day Pack, 21 Tabs)] Allergies Allergy/AdvReac Type Severity Reaction Status Date / Time No Known Allergies Allergy Verified 01/22/21 08:34 ED Review of Systems ROS: Stated complaint: MEJIA Other details as noted in HPI Comment: All other systems reviewed and negative Constitutional: denies: chills, fever Respiratory: shortness of breath, SOB with exertion, SOB at rest, wheezing. denies: cough Cardiovascular: denies: chest pain, palpitations Gastrointestinal: denies: abdominal pain, nausea, vomiting, diarrhea Musculoskeletal: denies: back pain Neurological: denies: headache, weakness, numbness, paresthesias, confusion, abnormal gait ED Past Medical Hx - Past Medical History Previous Medical History?: Yes Hx Hypertension: Yes (no meds) Hx Asthma: Yes Additional medical history: denies htn recheck of bp improved - Surgical History Past Surgical History?: Yes Additional Surgical History: Neck surgery 1970 - Social History Smoking Status: Light Tobacco Smoker Substance Use Type: None - Medications Home Medications: Home Medications Medication Instructions Recorded Confirmed Last Taken Type Albuterol Mdi (or & Nicu Only) 2 puff IH QID PRN #1 inhalation 08/09/20 01/22/21 Unknown Rx [ProAir HFA Inhaler] Albuterol Sulfate [Proair 90 mcg IH Q4H #1 aer.pow.ba 08/11/20 01/22/21 Unknown Rx Respiclick] Albuterol Mdi (or & Nicu Only) 2 puff IH QID PRN #8.5 gram 09/16/20 01/22/21 Unknown Rx [ProAir HFA Inhaler] Albuterol Sulfate [Albuterol 0.63% 0.63 mg IH TID PRN #270 ml 10/27/20 01/22/21 Unknown Rx NEBS] Albuterol Sulfate [Proventil Hfa] 6.7 gm IH QID #1 hfa.aer.ad 10/27/20 01/22/21 Unknown Rx Albuterol Mdi (or & Nicu Only) 2 puff IH QID PRN #1 unit 01/22/21 Unknown Rx [ProAir HFA Inhaler] Albuterol Sulfate [Albuterol 0.63% 0.63 mg IH Q4H PRN #1 box 01/22/21 Unknown Rx NEBS] Lisinopril [Zestril] 5 mg PO QDAY #30 tablet 01/22/21 Unknown Rx Prednisone [predniSONE 10 mg 10 mg PO .TAPER #1 tab.ds.pk 01/22/21 Unknown Rx (6-Day Pack, 21 Tabs)] ED Physical Exam - General Limitations: No Limitations General appearance: alert, in distress (Moderate respiratory distress.) - Head Head exam: Present: atraumatic, normocephalic, normal inspection - Eye Eye exam: Present: normal appearance - ENT ENT exam: Present: normal exam, normal orophraynx, mucous membranes moist - Neck Neck exam: Present: normal inspection, full ROM. Absent: tenderness, meningismus - Respiratory Respiratory exam: Present: respiratory distress, wheezes, decreased breath sounds, prolonged expiratory. Absent: rales, rhonchi, accessory muscle use - Cardiovascular Cardiovascular Exam: Present: regular rate, normal rhythm (Dr.), normal heart sounds - GI/Abdominal GI/Abdominal exam: Present: soft, normal bowel sounds. Absent: distended, tenderness, guarding, rebound, rigid, organomegaly, mass, bruit, pulsatile mass, hernia - Extremities Exam Extremities exam: Present: normal inspection, full ROM, normal capillary refill. Absent: tenderness - Back Exam Back exam: Present: normal inspection, full ROM. Absent: CVA tenderness (R), CVA tenderness (L) - Neurological Exam Neurological exam: Present: alert, oriented X3, CN II-XII intact - Psychiatric Psychiatric exam: Present: normal mood - Skin Skin exam: Present: warm, intact, normal color ED Course Vital Signs 02/19/21 02/19/21 02/19/21 20:12 21:54 22:09 Temperature 98.0 F Pulse Rate 98 H Pulse Rate [ 92 H Posterior Bilateral Throughout] Respiratory 18 20 Rate Respiratory 22 Rate [Posterior Bilateral Throughout] Blood Pressure 142/92 O2 Sat by Pulse 95 95 Oximetry ED Medical Decision Making - Lab Data Result diagrams: 02/19/21 20:43 02/19/21 20:43 - Radiology Data Radiology results: report reviewed - Medical Decision Making Patient is 55 years old male with history of asthma and hypertension. Patient presented to the ER complaining of shortness of breath and wheezing since this morning get worse this afternoon. Patient stated that he was working when this started. Patient denied any fever or chills. No chest pain, nausea or vomiting. Patient received albuterol, Atrovent and Solu-Medrol. Patient stated that he is hearing much better. Reexamination of the lungs showed no wheezing. Chest x- ray is unremarkable. Patient given prescription for albuterol and prednisone and advised to follow-up with his primary doctor in the next 2 to 3 days and to return to the ER if he develop any new symptoms. Critical care attestation.: If time is entered above; I have spent that time in minutes in the direct care of this critically ill patient, excluding procedure time. ED Disposition Clinical Impression: Acute asthma exacerbation Disposition: 01 HOME / SELF CARE / HOMELESS Is pt being admited?: No Condition: Stable Instructions: Asthma, Adult Referrals: PRIMARY CARE, [Primary Care Provider] - 3-5 Days Forms: Work/School Release Form(ED)
[2021-02-19 20:55] LABS: Basophils # (Auto) 0.1 K/mm3 (0.0-0.1); Basophils % (Auto) 1.3 % (0.0-1.8); Eosinophils # (Auto) 0.4 K/mm3 (0.0-0.4); Eosinophils % (Auto) 7.8 % (0.0-4.3); Lymphocytes # (Auto) 1.3 K/mm3 (1.2-5.4); Mean Corpuscular HGB Conc 31 % (32-34); Mean Corpuscular Volume 90 fl (84-94); Monocytes # (Auto) 0.5 K/mm3 (0.0-0.8); Monocytes % (Auto) 10.2 % (0.0-7.3); Platelet Count 176 K/mm3 (140-440); Red Blood Count 5.26 M/mm3 (3.65-5.03)
[2021-02-19 20:57] LABS: Hematocrit 47.4 % (35.5-45.6); Hemoglobin 14.7 gm/dl (11.8-15.2)
[2021-02-19 21:07] LABS: BUN/Creatinine Ratio 13; Blood Urea Nitrogen 13 mg/dL (9-20); Calcium 8.9 mg/dL (8.4-10.2); Hemolysis Index 8
--- NOTE | 2021-02-19 21:40 | XRay Report ---
XR chest 1V ap INDICATION / CLINICAL INFORMATION: Dyspnea. COMPARISON: 11/03/2020 FINDINGS: SUPPORT DEVICES: None. HEART /PULMONARY VASCULATURE: No significant abnormality. LUNGS / PLEURA: No significant pulmonary or pleural abnormality. No pneumothorax. ADDITIONAL FINDINGS: No significant additional findings. IMPRESSION: 1. No acute findings. Signer Name: Mike Marinelli MD Signed: 02/19/2021 9:35 PM Workstation Name: [id number]
[2021-02-20 00:38] VITALS: BP 125/87
== END 2021-02-20 00:43 | disposition home or self-care (01) ==
LOC: ED 20:06
DX: J45.901 Unspecified asthma with (acute) exacerbation (principal); I10 Essential (primary) hypertension; F17.200 Nicotine dependence, unspecified, uncomplicated
CPT/HCPCS: 36415; 71045; 80048; 85025; 94640; 96374; 99284; J2930; 94644

== ENCOUNTER 2021-04-09 07:45 | Emergency (ER) | payer OTHER ==
[2021-04-09 08:00] VITALS: BP 109/85
[2021-04-09] MEDS ORDERED: ALBUTEROL 2.5 MG/3 ML NEBU IH ONE (08:02)
[2021-04-09] MEDS ORDERED: predniSONE 20 MG TAB PO ONE (08:02)
--- NOTE | 2021-04-09 08:08 | Emergency Department Report ---
ED Asthma HPI - General Chief Complaint: Dyspnea/Respdistress Stated Complaint: ASTHMA ATTACK PUI?: No Time Seen by Provider: 04/09/21 08:02 Source: patient Mode of arrival: Ambulatory Limitations: No Limitations - History of Present Illness Initial Comments: 56 YO AA MALE COMES TO ER WITH SEVERAL HOUR INC IN WHEEZING. HE HAS A/C ASTHMA AND IS OUT OF HIS INHALER HE IS KNOWN TO US IN ER NO FEVER OR CHILLS NO SOB OR CHEST PAIN HE IS AMBULATORY AND NON ILL HE HAD NASAL SURGERY 1 WEEK AGO AND IS ON PCN HE HAS HAD RECENT COVID TESTS THAT ARE NEG NOT COVID VACCINATED- DISCUSSED WITH HIM HIS HIGHER RISK HE IS TALKING IN FULL SENTENCES WITH NO SOB -: Sudden, hour(s) Asthma History: childhood onset Severity: mild Context: ran out of meds Associated Symptoms: none. denies: productive cough, dry cough, fever, chest pain, hemoptysis, leg edema, syncope - Related Data Current Asthma Therapy: other (OUT OF MEDS) Previous Rx's Medication Instructions Recorded Last Taken Type Albuterol Sulfate [Albuterol 0.63% 0.63 mg IH Q4H PRN #1 box 04/09/21 Unknown Rx NEBS] predniSONE [Deltasone] 20 mg PO DAILY #5 tablet 04/09/21 Unknown Rx Allergies Allergy/AdvReac Type Severity Reaction Status Date / Time No Known Allergies Allergy Verified 01/22/21 08:34 ED Review of Systems ROS: Stated complaint: ASTHMA ATTACK Other details as noted in HPI Comment: All other systems reviewed and negative ED Past Medical Hx - Past Medical History Previous Medical History?: Yes Hx Hypertension: Yes (no meds) Hx Asthma: Yes Additional medical history: denies htn recheck of bp improved; NASAL SURG 03-29 - Surgical History Past Surgical History?: Yes Additional Surgical History: Neck surgery 1970 - Family History Family history: no significant - Social History Smoking Status: Never Smoker Substance Use Type: None - Medications Home Medications: Home Medications Medication Instructions Recorded Confirmed Last Taken Type Albuterol Sulfate [Albuterol 0.63% 0.63 mg IH Q4H PRN #1 box 04/09/21 Unknown Rx NEBS] predniSONE [Deltasone] 20 mg PO DAILY #5 tablet 04/09/21 Unknown Rx ED Physical Exam - General Limitations: No Limitations General appearance: alert, in no apparent distress - Head Head exam: Present: atraumatic, normocephalic - Eye Eye exam: Present: normal appearance - ENT ENT exam: Present: mucous membranes moist - Neck Neck exam: Present: normal inspection - Respiratory Respiratory exam: Present: normal lung sounds bilaterally, wheezes. Absent: respiratory distress - Cardiovascular Cardiovascular Exam: Present: regular rate, normal rhythm. Absent: systolic murmur, diastolic murmur, rubs, gallop - GI/Abdominal GI/Abdominal exam: Present: soft, normal bowel sounds - Rectal Rectal exam: Present: deferred - Extremities Exam Extremities exam: Present: normal inspection - Back Exam Back exam: Present: normal inspection - Neurological Exam Neurological exam: Present: alert, oriented X3 - Psychiatric Psychiatric exam: Present: normal affect, normal mood - Skin Skin exam: Present: warm, dry, intact, normal color. Absent: rash ED Course Vital Signs 04/09/21 07:57 Temperature 98.3 F Pulse Rate 63 Respiratory 18 Rate Blood Pressure 109/85 [Right] O2 Sat by Pulse 100 Oximetry ED Medical Decision Making - Medical Decision Making Vital Signs 04/09/21 07:57 Temperature 98.3 F Pulse Rate 63 Respiratory 18 Rate Blood Pressure 109/85 [Right] O2 Sat by Pulse 100 Oximetry NON ILL NO FEVER NO CHILLS NO SOB NO CP A/C ASTHMA OUT OF MEDS VS NORMAL DUONEB AND PREDNISONE IN ER DC HOME WITH DC PLAN OF CARE INCLUDING PCP/DIET/MED AND ACTIVITY INSTRUCTIONS- HE VERBALIZES UNDERSTANDING - Differential Diagnosis A/C ASTHMA Critical care attestation.: If time is entered above; I have spent that time in minutes in the direct care of this critically ill patient, excluding procedure time. ED Disposition Clinical Impression: Asthma with acute exacerbation, Non-adherence to medical treatment Disposition: 01 HOME / SELF CARE / HOMELESS Is pt being admited?: No Does the pt Need Aspirin: No Condition: Stable Instructions: Asthma, Adult Additional Instructions: MEDS ORDERED TODAY CONTINUE HOME MEDS FOLLOW UP WITH PCP IN 48 HOURS FOR RECHECK REFERRAL BELOW FOR OUR PCP DIET AND ACTIVITY TOLERATED Prescriptions: Albuterol Sulfate [Albuterol 0.63% NEBS] 0.63 mg IH Q4H PRN #1 box PRN Reason: Wheezing predniSONE [Deltasone] 20 mg PO DAILY #5 tablet Referrals: BE DIAZ MD [Staff Physician] - 3-5 Days Time of Disposition: 08:08
== END 2021-04-09 08:52 | disposition home or self-care (01) ==
LOC: ED 07:45
DX: J45.901 Unspecified asthma with (acute) exacerbation (principal); Z91.19 Patient's noncompliance with other medical treatment and regimen; I10 Essential (primary) hypertension; Z98.890 Other specified postprocedural states
CPT/HCPCS: 94640; 99282

== ENCOUNTER 2021-06-03 00:18 | Emergency (ER) | payer OTHER ==
[2021-06-03 00:30] VITALS: BP 157/116
--- NOTE | 2021-06-03 01:31 | XRay Report ---
RIGHT SHOULDER 3 VIEW(S) INDICATION / CLINICAL INFORMATION: INJURY. COMPARISON: None available. FINDINGS: BONES / JOINT(S): Distal right clavicle fracture not excluded. AC joint may be minimally widened. No significant arthritis. SOFT TISSUES: No significant abnormality. ADDITIONAL FINDINGS: None. IMPRESSION: 1. Possible minimal displaced distal right clavicle fracture. Signer Name: Berto Child II, MD Signed: 06/03/2021 1:27 AM Workstation Name: [id number]
--- NOTE | 2021-06-03 01:33 | XRay Report ---
RIGHT RIBS 5 VIEWS INDICATION / CLINICAL INFORMATION: INJURY. COMPARISON: None available. FINDINGS: RIBS: No acute, displaced fracture or other acute abnormality. LUNGS: No acute findings. No pneumothorax. Impression: No acute rib fracture. No traumatic injury involving the chest. Signer Name: Berto Child II, MD Signed: 06/03/2021 1:28 AM Workstation Name: [id number]
[2021-06-03] MEDS ORDERED: ONDANSETRON 4 MG ODT TAB PO ONE (04:27)
[2021-06-03] MEDS ORDERED: IBUPROFEN 600 MG TAB PO ONE (04:27)
[2021-06-03] MEDS ORDERED: HYDROcodone/ACETAMINOPHEN 7.5-325MG TAB PO ONE (04:27)
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
== END 2021-06-03 05:00 | disposition home or self-care (01) ==
LOC: ED 00:18
DX: S42.001A Fracture of unspecified part of right clavicle, initial encounter for closed fracture (principal); R07.81 Pleurodynia; I10 Essential (primary) hypertension; J45.909 Unspecified asthma, uncomplicated; V29.9XXA Motorcycle rider (driver) (passenger) injured in unspecified traffic accident, initial encounter; Y93.89 Activity, other specified; Y92.89 Other specified places as the place of occurrence of the external cause; Y99.8 Other external cause status
CPT/HCPCS: 99283; J3490; Q0162

== ENCOUNTER 2021-08-27 18:52 | Inpatient (IN) | payer OTHER ==
[2021-08-27] MEDS ORDERED: SODIUM CHLORIDE 0.9% 1000 ML 1,000 ML ONE (20:44)
[2021-08-27] MEDS ORDERED: ONDANSETRON 4 MG/2 ML INJ IV ONE (20:45)
--- NOTE | 2021-08-27 20:45 | Emergency Department Report ---
ED General Adult HPI - General Chief complaint: Dizziness Stated complaint: DIZZY/ASTHMA PUI?: No Time Seen by Provider: 08/27/21 20:20 Source: patient Mode of arrival: Ambulatory Limitations: No Limitations - History of Present Illness Initial comments: This is a pleasant 56-year-old male who state he has medical history of hyp ertension also asthma only came in today with concerns of 3-day history of vomiting black liquids and patient also notes that his stool has been very dark black as well. Patient also endorsed feeling dizziness and low heart rate. Patient denies any other symptoms denies fever chill night sweat blurred vision headache tinnitus ear pain runny nose sore throat loss of taste or smell chest pain palpitation cough abdominal pain diarrhea constipation dysuria myalgia arthralgia new rash and heat or cold intolerance. - Related Data Previous Rx's Medication Instructions Recorded Last Taken Type Albuterol Sulfate [Albuterol 0.63% 0.63 mg IH Q4H PRN #1 box 04/09/21 Unknown Rx NEBS] predniSONE [Deltasone] 20 mg PO DAILY #5 tablet 04/09/21 Unknown Rx Baclofen 20 mg PO Q12H PRN #20 tab 06/03/21 Unknown Rx HYDROcodone/APAP 5-325 [[place] 1 each PO Q6HR PRN #12 tablet 06/03/21 Unknown Rx 5/325] Ibuprofen [Motrin] 600 mg PO Q8H PRN #30 tablet 06/03/21 Unknown Rx ALBUTEROL NEB's [Proventil 0.083% 2.5 mg IH TID PRN #1 box 06/13/21 Unknown Rx NEBS] Albuterol Mdi (or & Nicu Only) 2 puff IH QID PRN #8.5 gram 06/13/21 Unknown Rx [ProAir HFA Inhaler] predniSONE [Deltasone] 20 mg PO BID 5 Days #10 tab 06/13/21 Unknown Rx Allergies Allergy/AdvReac Type Severity Reaction Status Date / Time No Known Allergies Allergy Verified 01/22/21 08:34 ED Review of Systems ROS: Stated complaint: DIZZY/ASTHMA Other details as noted in HPI Comment: All other systems reviewed and negative Constitutional: no symptoms reported Eyes: as per HPI ENT: as per HPI Respiratory: no symptoms reported Cardiovascular: as per HPI Endocrine: no symptoms reported Gastrointestinal: as per HPI Genitourinary: as per HPI Musculoskeletal: as per HPI Skin: as per HPI Neurological: as per HPI Psychiatric: as per HPI Hematological/Lymphatic: as per HPI ED Past Medical Hx - Past Medical History Previous Medical History?: Yes Hx Hypertension: Yes (no meds) Hx Asthma: Yes Additional medical history: denies htn recheck of bp improved - Surgical History Past Surgical History?: Yes Additional Surgical History: Neck surgery 1970 - Social History Smoking Status: Current Some Day Smoker Substance Use Type: None - Medications Home Medications: Home Medications Medication Instructions Recorded Confirmed Last Taken Type Albuterol Sulfate [Albuterol 0.63% 0.63 mg IH Q4H PRN #1 box 04/09/21 Unknown Rx NEBS] predniSONE [Deltasone] 20 mg PO DAILY #5 tablet 04/09/21 Unknown Rx Baclofen 20 mg PO Q12H PRN #20 tab 06/03/21 Unknown Rx HYDROcodone/APAP 5-325 [[place] 1 each PO Q6HR PRN #12 tablet 06/03/21 Unknown Rx 5/325] Ibuprofen [Motrin] 600 mg PO Q8H PRN #30 tablet 06/03/21 Unknown Rx ALBUTEROL NEB's [Proventil 0.083% 2.5 mg IH TID PRN #1 box 06/13/21 Unknown Rx NEBS] Albuterol Mdi (or & Nicu Only) 2 puff IH QID PRN #8.5 gram 06/13/21 Unknown Rx [ProAir HFA Inhaler] predniSONE [Deltasone] 20 mg PO BID 5 Days #10 tab 06/13/21 Unknown Rx ED Physical Exam - General Limitations: No Limitations General appearance: alert, in no apparent distress - Head Head exam: Present: atraumatic, normocephalic, normal inspection - Eye Eye exam: Present: normal appearance, PERRL, EOMI Pupils: Present: normal accommodation - ENT ENT exam: Present: normal exam, normal orophraynx - Neck Neck exam: Present: normal inspection, full ROM - Respiratory Respiratory exam: Present: normal lung sounds bilaterally - Cardiovascular Cardiovascular Exam: Present: regular rate, normal rhythm, tachycardia - GI/Abdominal GI/Abdominal exam: Present: soft - Extremities Exam Extremities exam: Present: normal inspection, full ROM, normal capillary refill - Back Exam Back exam: Present: normal inspection, full ROM - Neurological Exam Neurological exam: Present: alert, altered, oriented X3 - Psychiatric Psychiatric exam: Present: normal affect, normal mood - Skin Skin exam: Present: warm, intact, normal color ED Course Vital Signs 08/27/21 08/27/21 08/27/21 19:37 20:00 20:04 Temperature 97.9 F 97.6 F Pulse Rate 107 H 87 83 Respiratory 18 18 14 Rate Blood Pressure 78/50 Blood Pressure 85/41 [Left] O2 Sat by Pulse 100 90 89 Oximetry 08/27/21 08/27/21 08/27/21 20:15 20:31 20:45 Temperature Pulse Rate 83 78 82 Respiratory 15 14 12 Rate Blood Pressure 97/44 76/29 91/50 Blood Pressure [Left] O2 Sat by Pulse 100 100 100 Oximetry 08/27/21 08/27/21 08/27/21 21:01 21:15 21:31 Temperature Pulse Rate 65 75 69 Respiratory 14 15 17 Rate Blood Pressure 91/50 96/53 98/56 Blood Pressure [Left] O2 Sat by Pulse 100 100 100 Oximetry - Reevaluation(s) Reevaluation #1: 08/27/21 23:00 I SPOKE TO HOSPITALIST DR. CAIN WHO KINDLY ACCEPTED THE PATIENT. ED Medical Decision Making - Lab Data Result diagrams: 08/27/21 20:40 08/27/21 20:40 Critical care attestation.: If time is entered above; I have spent that time in minutes in the direct care of this critically ill patient, excluding procedure time. ED Disposition Clinical Impression: GIB (gastrointestinal bleeding) Disposition: ADMITTED INPATIENT Is pt being admited?: Yes Does the pt Need Aspirin: No Condition: Stable Time of Disposition: 23:00
[2021-08-27] MEDS ORDERED: SODIUM CHLORIDE 0.9% 1000 ML 1,000 ML IV ONE (21:00)
[2021-08-27] MEDS ORDERED: SODIUM CHLORIDE 0.9% 100 ML IVPB IV SCH (21:00)
--- NOTE | 2021-08-27 21:06 | XRay Report ---
ABDOMEN 1 VIEW 08/27/2021 INDICATION / CLINICAL INFORMATION: n/v. COMPARISON: None available. FINDINGS: TUBES / LINES: None. BOWEL GAS PATTERN: No significant abnormality. FREE AIR / EXTRALUMINAL GAS: None seen. ADDITIONAL FINDINGS: No significant additional findings. IMPRESSION: 1. No significant abnormality. Signer Name: Jeanmarie Lay DO Signed: 08/27/2021 9:02 PM Workstation Name: [id number]
--- NOTE | 2021-08-27 21:07 | XRay Report ---
CHEST 1 VIEW 08/27/2021 8:51 PM INDICATION / CLINICAL INFORMATION: sob. COMPARISON: 06/13/2021 FINDINGS: SUPPORT DEVICES: None. HEART / MEDIASTINUM: No significant abnormality. LUNGS / PLEURA: No significant pulmonary or pleural abnormality. No pneumothorax. ADDITIONAL FINDINGS: No significant additional findings. IMPRESSION: 1. No acute findings. Signer Name: Jeanmarie Lay DO Signed: 08/27/2021 9:02 PM Workstation Name: [id number]
[2021-08-27 21:10] LABS: Basophils # (Auto) 0.1 K/mm3 (0.0-0.1); Basophils % (Auto) 1.4 % (0.0-1.8); Eosinophils # (Auto) 0.2 K/mm3 (0.0-0.4); Eosinophils % (Auto) 2.5 % (0.0-4.3); Hematocrit 22.8 % (35.5-45.6); Hemoglobin 7.5 gm/dl (11.8-15.2); Lymphocytes # (Auto) 1.4 K/mm3 (1.2-5.4); Lymphocytes % (Auto) 20.3 % (13.4-35.0); Mean Corpuscular HGB Conc 33 % (32-34); Mean Corpuscular Volume 89 fl (84-94); Monocytes # (Auto) 0.5 K/mm3 (0.0-0.8); Monocytes % (Auto) 6.6 % (0.0-7.3); Platelet Count 196 K/mm3 (140-440); Red Blood Count 2.56 M/mm3 (3.65-5.03); Red Cell Distribution Width 15.5 % (13.2-15.2)
[2021-08-27 21:22] LABS: Alanine Aminotransferase 14 units/L (7-56); Albumin 3.6 g/dL (3.9-5); BUN/Creatinine Ratio 33; Blood Urea Nitrogen 39 mg/dL (9-20); Calcium 8.5 mg/dL (8.4-10.2); Hemolysis Index 4
[2021-08-27 21:27] LABS: INR 0.95 (0.87-1.13)
[2021-08-27] MEDS ORDERED: PANTOPRAZOLE 40 MG INJ IV ONE (22:17)
[2021-08-27] MEDS ORDERED: OCTREOTIDE 50 MCG/1 ML INJ IV ONE (22:17)
[2021-08-27] MEDS: PANTOPRAZOLE 80 MG in SODIUM CHLORIDE 0.9% 100 ML IV SCH (23:23)
[2021-08-27] MEDS: OCTREOTIDE 500 MCG in SODIUM CHLORIDE 0.9% 100 ML IV SCH (23:24)
[2021-08-27] MEDS ORDERED: MORPHINE 4 MG/1 ML INJ IV PRN (23:39)
[2021-08-27] MEDS ORDERED: MORPHINE 2 MG/1 ML INJ IV PRN (23:39)
[2021-08-27] MEDS ORDERED: ACETAMINOPHEN 325 MG TAB PO PRN (23:39)
[2021-08-27] MEDS ORDERED: ONDANSETRON 4 MG/2 ML INJ IV PRN (23:39)
[2021-08-27] MEDS ORDERED: MAGNESIUM HYDROXIDE (MOM) ORAL LIQD UDC PO PRN (23:39)
[2021-08-27] MEDS ORDERED: SODIUM CHLORIDE 0.9% 1000 ML 1,000 ML IV SCH (23:45)
--- NOTE | 2021-08-27 23:47 | History and Physical Report ---
History of Present Illness Date of examination: 08/27/21 Date of admission: 08/27/2021 Chief complaint: Coffee ground Eemsis Black stool History of present illness: 56-year-old -[place] male with known history of hypertension and asthma presents to the emergency room today with a 3-day complaint of coffee-ground emesis and black stool. He also indicates that he has been feeling dizzy over the past few days. He denies any headache and denies any diaphoresis. Patient denies any chest pain and denies any shortness of breath. Denies any fever or chills, no abdominal pain, no hematuria or dysuria. He denies having this type of symptoms in the past. Patient however indicates that he used some Goody powder just 3 days ago for tooth ache. Work-up in the emergency room today, lab reveals hemoglobin of 7.5 and hematocrit of 22.8. BUN of 39 creatinine 1.2. Abdominal x-ray and chest x-ray were unremarkable. Patient has been started on octreotide and IV Protonix drip. Past History Past Medical History: hypertension, other (Asthma) Past Surgical History: Other (Neck Surgery) Social history: smoking (Current occasional smoker) Family history: no significant family history Medications and Allergies Allergies Allergy/AdvReac Type Severity Reaction Status Date / Time No Known Allergies Allergy Verified 01/22/21 08:34 Home Medications Medication Instructions Recorded Confirmed Last Taken Type Albuterol Sulfate [Albuterol 0.63% 0.63 mg IH Q4H PRN #1 box 04/09/21 Unknown Rx NEBS] predniSONE [Deltasone] 20 mg PO DAILY #5 tablet 04/09/21 Unknown Rx Baclofen 20 mg PO Q12H PRN #20 tab 06/03/21 Unknown Rx HYDROcodone/APAP 5-325 [[place] 1 each PO Q6HR PRN #12 tablet 06/03/21 Unknown Rx 5/325] Ibuprofen [Motrin] 600 mg PO Q8H PRN #30 tablet 06/03/21 Unknown Rx ALBUTEROL NEB's [Proventil 0.083% 2.5 mg IH TID PRN #1 box 06/13/21 Unknown Rx NEBS] Albuterol Mdi (or & Nicu Only) 2 puff IH QID PRN #8.5 gram 06/13/21 Unknown Rx [ProAir HFA Inhaler] predniSONE [Deltasone] 20 mg PO BID 5 Days #10 tab 06/13/21 Unknown Rx Active Meds: Active Medications Pantoprazole Sodium 80 mg/ (Sodium Chloride) 100 mls @ 10 mls/hr IV DIRECT BABS Last Admin: 08/27/21 23:23 Dose: 8 mg/hr, 10 mls/hr Octreotide Acetate 500 mcg/ (Sodium Chloride) 101 mls @ 5.05 mls/hr IV TITR BABS; Protocol Last Admin: 08/27/21 23:24 Dose: 25 mcg/hr, 5.05 mls/hr Review of Systems Constitutional: no fever, no chills Ears, nose, mouth and throat: no nasal congestion, no sore throat Cardiovascular: no chest pain, no palpitations Respiratory: no cough, no shortness of breath Gastrointestinal: nausea, vomiting, coffee ground emesis, melena, no abdominal pain, no diarrhea Genitourinary Male: no dysuria, no hematuria, no nocturia Musculoskeletal: no neck pain, no low back pain Integumentary: no rash Neurological: no headaches, no confusion Psychiatric: no anxiety, no depression Endocrine: no polyphagia, no polydipsia, no polyuria, no nocturia Exam - Constitutional Vitals: Temp Pulse Resp BP Pulse Ox 97.6 F 69 17 98/56 100 08/27/21 20:00 08/27/21 21:31 08/27/21 21:31 08/27/21 21:31 08/27/21 21:31 General appearance: Present: no acute distress, well-nourished, other (Moderate pallor) - EENT Eyes: Present: PERRL, EOM intact. Absent: scleral icterus ENT: hearing intact, clear oral mucosa, dentition normal - Neck Neck: Present: supple, normal ROM - Respiratory Respiratory effort: normal Respiratory: bilateral: CTA - Cardiovascular Rhythm: regular Heart Sounds: Present: S1 & S2. Absent: gallop, systolic murmur, diastolic murmur, rub, click - Extremities Extremities: no ischemia, pulses intact, pulses symmetrical, No edema, normal temperature, normal color, Full ROM Peripheral Pulses: within normal limits - Abdominal General gastrointestinal: Present: soft, non-tender, non-distended, normal bowel sounds. Absent: mass - Integumentary Integumentary: Present: clear, warm, dry, normal turgor. Absent: rash - Musculoskeletal Musculoskeletal: strength equal bilaterally - Psychiatric Psychiatric: appropriate mood/affect, intact judgment & insight, memory intact, cooperative - Neurologic Neurologic: CNII-XII intact, no focal deficits, moves all extremities Results - Labs CBC & Chem 7: 08/28/21 05:21 08/28/21 05:21 Labs: Abnormal lab results 08/27/21 08/27/21 08/27/21 Range/Units 20:40 20:40 20:40 RBC 2.56 L (3.65-5.03) M/mm3 Hgb 7.5 L (11.8-15.2) gm/dl Hct 22.8 L (35.5-45.6) % RDW 15.5 H (13.2-15.2) % APTT 24.0 L (24.2-36.6) Sec. Chloride 109.4 H (98-107) mmol/L BUN 39 H (9-20) mg/dL Glucose 101 H (75-100) mg/dL Total Protein 6.1 L (6.3-8.2) g/dL Albumin 3.6 L (3.9-5) g/dL Assessment and Plan Assessment: 1. GI bleed 2. History of asthma 3. Hypertension 4. Anemia-probably secondary to GI bleed Plan: 1. Patient admitted and placed NPO. 2. He has been commenced on octreotide and IV Protonix. 3. Consult to gastroenterology has been requested. 4. We will continue to monitor vital signs closely. We will also monitor CBC. DVT prophylaxis: SCD Code Status: Full Code.
[2021-08-28 06:00] LABS: Basophils # (Auto) 0.1 K/mm3 (0.0-0.1); Eosinophils # (Auto) 0.2 K/mm3 (0.0-0.4); Eosinophils % (Auto) 3.8 % (0.0-4.3); Hematocrit 20.9 % (35.5-45.6); Hemoglobin 6.8 gm/dl (11.8-15.2); Lymphocytes # (Auto) 2.4 K/mm3 (1.2-5.4); Lymphocytes % (Auto) 36.5 % (13.4-35.0); Mean Corpuscular HGB Conc 33 % (32-34); Mean Corpuscular Volume 90 fl (84-94); Monocytes # (Auto) 0.5 K/mm3 (0.0-0.8); Monocytes % (Auto) 8.1 % (0.0-7.3); Platelet Count 187 K/mm3 (140-440); Red Blood Count 2.33 M/mm3 (3.65-5.03); Red Cell Distribution Width 15.2 % (13.2-15.2)
[2021-08-28 06:02] LABS: BUN/Creatinine Ratio 27; Blood Urea Nitrogen 24 mg/dL (9-20); Calcium 7.9 mg/dL (8.4-10.2); Hemolysis Index 6
[2021-08-28] MEDS: PANTOPRAZOLE 80 MG in SODIUM CHLORIDE 0.9% 100 ML IV SCH ×2 (08:58→21:34)
[2021-08-28] MEDS ORDERED: ALBUTEROL 8.5 GM MDI INHALATION IH PRN (09:52)
[2021-08-28] MEDS ORDERED: D5W/0.9% NACL 1,000 ML IV SCH (10:00)
[2021-08-28] MEDS ORDERED: SODIUM CHLORIDE 0.9% 500 ML 500 ML IV SCH (10:00)
[2021-08-28] MEDS: ALBUTEROL 2.5 MG/3 ML NEBU IH PRN (10:05)
--- NOTE | 2021-08-28 13:34 | Progress Note ---
Assessment and Plan --Acute GI bleed -- History of asthma -- Hypertension -- Anemia-probably secondary to GI bleed Plan: Patient admitted and placed NPO. He has been commenced on octreotide and IV Protonix. Consult to gastroenterology has been requested - planned for EGD today We will continue to monitor vital signs closely. We will also monitor CBC. H/H 6.7 today, will transfuse 1 unit PRBC, follow h/h, follow EGD findings DVT prophylaxis: SCD Code Status: Full Code. Subjective Date of service: 08/28/21 Interval history: Patient seen and examined. Medical records and medication list reviewed. No acute event overnight noted by the RN. Patient denies any chest pain or difficulty breathing. Discussed plan of care at bedside with patient. Objective - Exam Narrative Exam: GENERAL: elderly AAM lying on bed appeared to be in no discomfort. HEENT: Normocephalic. Atraumatic. No conjunctival congestion or icterus. Patient has moist mucous membranes. NECK: Supple. Trachea midline. CHEST/LUNGS: Clear to auscultated bilaterally, breathing nonlabored. No wheezes crackles or rhonchi. HEART/CARDIOVASCULAR: Regular in rate and rhythm. S1 and S2 positive. ABDOMEN: Abdomen is soft, nontender. Patient has normal bowel sounds. SKIN: There is no rash. Warm and dry. NEURO: No focal motor deficit. Follows command. MUSCULOSKELETAL: No joint effusion or tenderness. EXTRIMITY: No edema, no cyanosis or clubbing. PSYCH: Cooperative. - Constitutional Vitals: Vital Signs - 12hr 08/28/21 08/28/21 08/28/21 01:57 05:10 05:32 Temperature 98.3 F 98.2 F Pulse Rate 77 76 74 Pulse Rate [ Anterior Bilateral Throughout] Respiratory 20 16 20 Rate Respiratory Rate [Anterior Bilateral Throughout] Blood Pressure 101/50 113/72 Blood Pressure 93/45 [Left] O2 Sat by Pulse 96 99 98 Oximetry 08/28/21 08/28/21 08/28/21 07:48 10:04 10:05 Temperature Pulse Rate Pulse Rate [ 70 Anterior Bilateral Throughout] Respiratory Rate Respiratory 18 Rate [Anterior Bilateral Throughout] Blood Pressure Blood Pressure [Left] O2 Sat by Pulse 94 95 Oximetry - Labs CBC & Chem 7: 08/28/21 05:21 08/28/21 05:21 Labs: Abnormal lab results 08/27/21 08/27/21 08/27/21 Range/Units 20:40 20:40 20:40 RBC 2.56 L (3.65-5.03) M/mm3 Hgb 7.5 L (11.8-15.2) gm/dl Hct 22.8 L (35.5-45.6) % RDW 15.5 H (13.2-15.2) % Lymph % (Auto) (13.4-35.0) % [place] % (Auto) (0.0-7.3) % APTT 24.0 L (24.2-36.6) Sec. Chloride 109.4 H (98-107) mmol/L BUN 39 H (9-20) mg/dL Glucose 101 H (75-100) mg/dL Calcium (8.4-10.2) mg/dL Total Protein 6.1 L (6.3-8.2) g/dL Albumin 3.6 L (3.9-5) g/dL Crossmatch 08/27/21 08/28/21 08/28/21 Range/Units 20:40 05:21 05:21 RBC 2.33 L (3.65-5.03) M/mm3 Hgb 6.8 L (11.8-15.2) gm/dl Hct 20.9 L (35.5-45.6) % RDW (13.2-15.2) % Lymph % (Auto) 36.5 H (13.4-35.0) % [place] % (Auto) 8.1 H (0.0-7.3) % APTT (24.2-36.6) Sec. Chloride 110.4 H (98-107) mmol/L BUN 24 H (9-20) mg/dL Glucose 114 H (75-100) mg/dL Calcium 7.9 L (8.4-10.2) mg/dL Total Protein (6.3-8.2) g/dL Albumin (3.9-5) g/dL Crossmatch See Detail
[2021-08-28] MEDS ORDERED: SODIUM CHLORIDE 0.9% 1000 ML 1,000 ML ONE (15:04)
--- NOTE | 2021-08-28 15:35 | Anesthesia Day of Surgery ---
Anesthesia Day of Surgery - Day of Surgery Patient Examined: Yes Patient H&P Reviewed: Yes Patient is NPO: Yes
--- NOTE | 2021-08-28 15:35 | Anesthesia Consultation ---
Anesthesia Consult and Med Hx Date of service: 08/28/21 - Airway Anesthetic Teeth Evaluation: Poor ROM Head & Neck: Adequate Mental/Hyoid Distance: Adequate Mallampati Class: Class II Intubation Access Assessment: Probably Good - Pre-Operative Health Status ASA Pre-Surgery Classification: ASA3 Proposed Anesthetic Plan: MAC - Pulmonary Hx Smoking: Yes (03/11 - 3PPD) Hx Asthma: Yes (albuterol TID) - Cardiovascular System Hx Hypertension: Yes Hx Heart Attack/AMI: No - Central Nervous System CVA: No - Endocrine Hx Renal Disease: No Hx Liver Disease: No Hx Insulin Dependent Diabetes: No Hx Non-Insulin Dependent Diabetes: No Hx Thyroid Disease: No - Hematic Hx Anemia: Yes (s/p pRBC transfusion this admission) - Additional Comments Anesthesia Medical History Comments: No hx anesthetic complications.
[2021-08-28] MEDS ORDERED: propofoL 200 MG/20 ML VIAL IV ONE (15:40)
--- NOTE | 2021-08-28 15:54 | Post Operative Note ---
Pre-op diagnosis: gi bleed Post-op diagnosis: same Findings: EGD: healing small m-w tear x 2 - gastritis - negative other Procedure: egd w/ bx Anesthesia: MAC Surgeon: IBETH WELLS Estimated blood loss: none Pathology: list Specimen disposition: to lab Condition: stable Disposition: floor
[2021-08-28] MEDS: OCTREOTIDE 500 MCG in SODIUM CHLORIDE 0.9% 100 ML IV SCH (18:21)
--- NOTE | 2021-08-28 18:21 | Post Anesthesia Evaluation ---
- Post Anesthesia Evaluation Patient Participated: Yes Airway Patent: Yes Stable Respiratory Function: Yes Nausea/Vomiting: No Temp > 96.8F: Yes Pain Manageable: Yes Adequeate Hydration: Yes Anesthesia Complications: No
[2021-08-29] MEDS: ALBUTEROL 2.5 MG/3 ML NEBU IH PRN (02:29)
--- NOTE | 2021-08-29 02:45 | Consultation ---
DATE OF CONSULTATION: 08/28/2021 REFERRING PHYSICIAN: Dr. Heather Garcia. INDICATION: 1. Coffee-ground emesis. 2. Black stools. HISTORY OF PRESENT ILLNESS: The patient is a 56-year-old black male with history of hypertension, asthma, now being seen by GI for coffee-ground emesis and black stools. The patient reports he has been feeling dizzy and weak over recent days. The patient reports he has been taking ____ for the last few days for a toothache. Denies bright red blood per rectum. The patient denies a history of liver disease. The patient does report some alcohol use. No other specific complaints. PAST MEDICAL HISTORY: Hypertension, asthma. MEDICATIONS: Reviewed and updated in chart. ALLERGIES: No known drug allergies. SOCIAL HISTORY: Reports social alcohol. Denies tobacco or drug abuse. FAMILY HISTORY: Negative for colon cancer, IBD or liver disease REVIEW OF SYSTEMS: GENERAL: Reports some weakness. HEENT: Denies visual complaints or tinnitus. PULMONARY: No shortness of breath, chest pain. GASTROINTESTINAL: Reports hematemesis and black stool. All points of 13-point review of system otherwise negative. PHYSICAL EXAMINATION: VITAL SIGNS: Temperature of 97.2, pulse 77, respirations 18, blood pressure 121/70. GENERAL: Well nourished male in no acute distress. HEENT: Pupils round and reactive. PULMONARY: Clear to auscultation bilaterally. CARDIOVASCULAR: Normal S1, S2. ABDOMEN: Positive bowel sounds, soft. SKIN: No obvious rashes. LABORATORY DATA: Pertinent for white count 6.5, hemoglobin and hematocrit 6.8 and 20.9, platelet count of 187. Coags within normal limits. Chem-7 within normal limits. ASSESSMENT: A 56-year-old male with reported recent NSAID use, now with coffee-ground emesis and reported black stools. Concern for upper GI bleed including possible peptic ulcer disease. PLAN: 1. Follow hematocrit and transfuse as needed. 2. PPI IV b.i.d. 3. Avoid NSAIDs and aspirin. 4. Plan EGD today. TID: [id number] RECEIPT: [id number] [facility]/CATA/CAROLYN/VENANCIO
--- NOTE | 2021-08-29 02:55 | Procedure Note ---
DATE OF PROCEDURE: 08/28/2021 INDICATIONS: 1. Anemia. 2. Gastrointestinal bleed. MEDICATIONS: Propofol per [facility]. COMPLICATIONS: None. DESCRIPTION OF PROCEDURE: The patient was brought to the procedure suite. The patient had the procedure discussed with him at length. All risks, complications and benefits were discussed, after which the patient signed for the procedure to be performed. The patient was placed in left lateral decubitus position. Mouth block placed in the patient's oral cavity. After adequate sedation with medication as above, endoscope placed in the mouth and brought to level of second portion of duodenum. Retroflexion views performed. The patient's vital signs remained stable throughout the procedure. FINDINGS: There were 2 small Fiorella-Carlisle tears noted at GE junction 40 cm from the gums. Small hiatal hernia at GE junction. Mild to moderate antral gastritis noted. Biopsies were taken and sent for pathology. The remaining stomach otherwise appeared to be normal. Duodenum appeared to be normal. Retroflexion view performed in the stomach showed no other pathology other than noted above. The patient tolerated the procedure well. No complications during this procedure. IMPRESSION: 1. Small Fiorella-Carlisle tear x2 without bleeding stigmata. 2. Hiatal hernia. 3. Moderate gastritis, biopsies performed. 4. Otherwise, normal EGD. RECOMMENDATIONS: 1. Follow up biopsy results. 2. with PPI daily. 3. Advance diet. 4. If H and H stable in a.m., okay to discharge from GI standpoint. TID: [id number] RECEIPT: [id number] [facility]/CATA/ISIAH/NIS
[2021-08-29 06:51] LABS: Hematocrit 20.8 % (35.5-45.6); Mean Corpuscular HGB Conc 34 % (32-34); Mean Corpuscular Volume 89 fl (84-94); Platelet Count 191 K/mm3 (140-440); Red Blood Count 2.34 M/mm3 (3.65-5.03); Red Cell Distribution Width 14.8 % (13.2-15.2)
[2021-08-29 07:12] LABS: BUN/Creatinine Ratio 12; Blood Urea Nitrogen 11 mg/dL (9-20); Calcium 8.1 mg/dL (8.4-10.2); Hemolysis Index 3
[2021-08-29] MEDS ORDERED: PANTOPRAZOLE 40 MG TAB PO SCH (10:00)
--- NOTE | 2021-08-29 13:35 | Electrocardiograph Report ---
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
[2021-08-29 14:37] VITALS: BP 116/79
--- NOTE | 2021-08-29 14:38 | Discharge Summary ---
Providers - Providers Date of Admission: 08/27/21 23:39 Date of discharge: 08/29/21 Attending physician: SHAWN MOTA 08/27/21 23:39 Consult to Physician [CONS] Routine Comment: Consulting Provider: EAGLE BRADLEY Physician Instructions: Reason For Exam: GI Bleed 08/28/21 02:15 Consult to Dietitian/Nutrition [CONS] Routine Physician Instructions: Reason For Exam: Reason for Consult: Poor oral intake Primary care physician: [employer] Hospitalization Condition: Stable Hospital course: Subjective Date of service: 08/29/21 Interval history: Patient seen and examined. Medical records and medication list reviewed. No acute event overnight noted by the RN. Patient denies any chest pain or difficulty breathing. Discussed plan of care at bedside with patient.' No EGD: healing small m-w tear x 2 - gastritis - negative other Assessment and Plan --Acute GI bleed---resolved -- History of asthma -- Hypertension -- Anemia-secondary to GI bleed Plan: He has been commenced on octreotide and IV Protonix. Consult to gastroenterology has been requested - EGD yesterday - MW tear H/H 7.0 today, D/c on Protonix DVT prophylaxis: SCD Code Status: Full Code. Disposition: HOME / SELF CARE / HOMELESS Final Discharge Diagnosis (Prints w/discharge instructions): Upper GI bleed. Fiorella-Carlisle tear. Acute blood loss anemia Time spent for discharge: 35 minutes - Discharge Diagnoses (1) GIB (gastrointestinal bleeding) Status: Acute (2) Fiorella-Carlisle tear Status: Acute (3) Acute blood loss anemia (ABLA) Status: Acute Core Measure Documentation - Palliative Care Palliative Care/ Comfort Measures: Not Applicable - Core Measures Any of the following diagnoses?: none Exam - Constitutional Vitals: Temp Pulse Resp BP Pulse Ox 98.4 F 64 16 98/56 98 08/29/21 04:30 08/29/21 04:30 08/29/21 04:30 08/29/21 04:30 08/29/21 10:00 General appearance: Present: no acute distress, well-nourished - EENT Eyes: Present: PERRL ENT: hearing intact, clear oral mucosa - Neck Neck: Present: supple, normal ROM - Respiratory Respiratory effort: normal Respiratory: bilateral: CTA - Cardiovascular Heart rate: 78 Heart Sounds: Present: S1 & S2. Absent: rub, click - Extremities Extremities: pulses symmetrical, No edema Peripheral Pulses: within normal limits - Abdominal General gastrointestinal: Present: soft, non-tender, non-distended, normal bowel sounds Male genitourinary: Present: normal - Rectal Rectal Exam: deferred - Integumentary Integumentary: Present: clear, warm, dry - Musculoskeletal Musculoskeletal: gait normal, strength equal bilaterally - Psychiatric Psychiatric: appropriate mood/affect, intact judgment & insight - Neurologic Neurologic: CNII-XII intact, moves all extremities - Allied Health Allied health notes reviewed: nursing, case management Plan Activity: no restrictions Diet: regular Follow up with: PRIMARY CAREMD [Primary Care Provider] - 7 Days IBETH WELLS MD [Staff Physician] - 7 Days
--- NOTE | 2021-08-29 15:12 | Gastroenterology Progress Note ---
Assessment and Plan 1. GI; s/p egd w/ m-w enrique - stable overnight, - diet as tolerated - ok to dc - will sign off Subjective Date of service: 08/29/21 Interval history: - no GI complaints overnight Objective - Constitutional Vitals: Temp Pulse Resp BP Pulse Ox 98.6 F 83 18 116/79 94 08/29/21 11:43 08/29/21 11:43 08/29/21 11:43 08/29/21 11:43 08/29/21 11:43 General appearance: no acute distress - EENT Eyes: PERRL - Respiratory Respiratory: bilateral: CTA - Cardiovascular Rhythm: regular Heart Sounds: Present: S1 & S2 - Gastrointestinal General gastrointestinal: Present: soft, non-tender, non-distended - Labs CBC & Chem 7: 08/29/21 06:41 08/29/21 06:41 Labs: Laboratory Results - last 24 hr 08/27/21 08/29/21 08/29/21 20:40 06:41 06:41 WBC 6.0 RBC 2.34 L Hgb 7.0 L Hct 20.8 L MCV 89 MCH 30 MCHC 34 RDW 14.8 Plt Count 191 Sodium 142 Potassium 3.7 Chloride 108.7 H Carbon Dioxide 26 Anion Gap 11 BUN 11 Creatinine 0.9 Estimated GFR > 60 BUN/Creatinine Ratio 12 Glucose 93 Calcium 8.1 L Crossmatch See Detail
== END 2021-08-29 16:21 | disposition home or self-care (01) | DRG 369 ==
LOC: ED 18:52 → 4A 23:39
PROVIDERS: ADMIT Internal Medicine Geriatric Medicine; ATTEND Internal Medicine
PROC: 0DB68ZX Excision of Stomach, Via Natural or Artificial Opening Endoscopic, Diagnostic (ICD-10-PCS; principal; 2021-08-28)
PROC: 30233N1 Transfusion of Nonautologous Red Blood Cells into Peripheral Vein, Percutaneous Approach (ICD-10-PCS; 2021-08-28)
DX: K22.6 Gastro-esophageal laceration-hemorrhage syndrome (principal); D62 Acute posthemorrhagic anemia; K29.71 Gastritis, unspecified, with bleeding; I10 Essential (primary) hypertension; J45.909 Unspecified asthma, uncomplicated; F17.200 Nicotine dependence, unspecified, uncomplicated; K44.9 Diaphragmatic hernia without obstruction or gangrene
CPT/HCPCS: 36415; 71045; 74018; 80048; 80053; 80320; 83735; 85025; 85027; 85610; 85730; 86850; 86900; 86901; 86920; 88305; 93005; 94640; 94760; 99406; G0378; J2501; J3490; C9113; G0480; J2354; J2405; J2704; J7030; P9016